=== PATIENT | male | born 1950 | race Caucasian/White ===

== ENCOUNTER → 2018-04-19 | Outpatient (CLI) | payer MEDICARE, OTHER ==
[~2018-04-19] MED LIST: ASPIRIN325 MG PO; DIOVAN160 MG PO; FUROSEMIDE INJ 10 MG/ML 4 ML VIAL ONE; IMURAN50 MG PO; METOPROLOL TART25 MG PO; Z.0.MELOXICAM7.5 MG PO
--- NOTE | 2018-04-19 13:37 | Diagnostic Imaging Report ---
PROCEDURE: CT ABDOMEN AND PELVIS WITHOUT CONTRAST TECHNIQUE: The abdomen and pelvis were scanned utilizing a multidetector helical scanner from the diaphragm to the lesser trochanter. No IV contrast was administered because of stone protocol. Coronal and sagittal multiplanar reformations were obtained. DLP: 792.6 mGy-cm COMPARISON: None. INDICATIONS: HYDRONEPHROSIS FINDINGS: ABSENCE OF INTRAVENOUS CONTRAST DECREASES SENSITIVITY FOR DETECTION OF FOCAL LESIONS AND VASCULAR PATHOLOGY. LOWER THORAX: Coronary artery and aortic annular calcifications. HEPATOBILIARY: Hepatic steatosis. No focal hepatic lesions. No biliary ductal dilatation. SPLEEN: No splenomegaly. PANCREAS: No focal masses or ductal dilatation. ADRENALS: No adrenal nodules. KIDNEYS/URETERS: Punctate calcifications in the right kidney measuring up to 5 mm likely a combination of renal calculi and vascular calcifications. No right hydronephrosis or suspicious renal contour abnormalities. Severe left hydronephrosis with diffuse cortical thinning. No hydroureter. No apparently asymmetric perinephric stranding. Punctate cluster of non-obstructing stones in the interpolar region (series 2 image 38). No suspicious renal contour abnormalities. PELVIC ORGANS/BLADDER: Unremarkable. PERITONEUM / RETROPERITONEUM: No free air or fluid. LYMPH NODES: No lymphadenopathy. VESSELS: Mild scattered atherosclerotic calcifications. No abdominal aortic aneurysm. GI TRACT: No distention or wall thickening. Few sigmoid colonic diverticula without evidence of diverticulitis. BONES AND SOFT TISSUES: Relative atrophy of the right pelvic musculature. Advanced degenerative changes of the lumbar spine. Right L2-L3 pars defect. IMPRESSION: 1. 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 Recommend correlation with same day nuclear medicine exam. 2. Bilateral nephrolithiasis. 3. Colonic diverticulosis. 4. Hepatic steatosis. Dictated by: Raffaele Diehl M.D. on 04/19/2018 at 13:41 Electronically approved by: Raffaele Diehl M.D. on 04/19/2018 at 13:41
--- NOTE | 2018-04-19 22:24 | Diagnostic Imaging Report ---
Renal Scan with Lasix Washout Clinical information: 67 M with hydronephrosis and chronic kidney disease. Technique: Following intravenous administration of 10 mCi of Tc-99m MAG3, dynamic images of the kidneys in the posterior projection were obtained through 40 minutes. Lasix 40 mg was administered intravenously at 11 minutes post injection of the tracer. Report: Left kidney: Perfusion of the left kidney is prompt. 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 Extraction of tracer from the blood pool by the very minimal amount of renal parenchyma is decreased. Clearance of tracer from the renal parenchyma begins promptly but is not complete by the end of the study. The pelvicalyceal system is not dilated. Some pooling of tracer is seen within the pelvicalyceal system. Drainage of tracer from the pelvicalyceal system is adequate prior to administration of Lasix. No significant stasis of tracer is seen within the left ureter. Right kidney: Perfusion to the right kidney is prompt. The right kidney has a distorted and rounded reniform shape and the kidney is reduced in size. Extraction of tracer by the renal parenchyma is mild to moderately decreased. Clearance of tracer from the renal parenchyma begins promptly but is not complete by the end of the study. The pelvicalyceal system is not dilated. Physiologic pooling of tracer within the pelvicalyceal system is seen. Drainage of tracer from the pelvicalyceal system is adequate prior to administration of Lasix. No significant stasis of tracer is seen within the right ureter. Differential renal function: The left kidney contributes 7% of total renal function and the right kidney contributes 93% (normal 43-57%). Impression: 1. 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 The minimal amount of remaining renal parenchyma shows mild to moderate medical renal disease but functions as well as the right renal parenchyma. No hydronephrosis is present and no obstruction is present. 2. The right kidney shows evidence of mild to moderate medical renal disease. No hydronephrosis is present . No physiologically significant obstruction of the renal collecting system is present. Signed by: Dr. Shanell Baker M.D. on 04/19/2018 10:20 PM
== END ==
LOC: CT 12:39
PROVIDERS: ATTEND Urology
DX: N13.30 Unspecified hydronephrosis (principal); N18.9 Chronic kidney disease, unspecified
CPT/HCPCS: 74176; 78708; A9562; J1940

== ENCOUNTER 2019-04-23 05:00 | Observation (INO) | payer MEDICARE, OTHER ==
[2019-04-19 12:54] LABS: BASOPHILS # (AUTO) 0.1 (0.0-0.1); BASOPHILS % 0.7 % (0.0-1.0); EOSINOPHILS # (AUTO) 0.1 (0.0-0.4); EOSINOPHILS % 1.5 % (0.0-6.0); HEMATOCRIT 33.2 % (38.2-49.6); HEMOGLOBIN 10.7 g/dL (14.0-18.0); LYMPHOCYTES # (AUTO) 0.5 (1.0-3.2); LYMPHOCYTES % 6.7 % (18.0-39.1); MEAN CORPUSCULAR HEMOGLOBIN 33.4 pg (28-32); MEAN CORPUSCULAR HGB CONC 32.2 g/dL (31-35); MEAN CORPUSCULAR VOLUME 103.8 fL (81-99); MONOCYTES # (AUTO) 0.5 (0.2-0.8); MONOCYTES % 6.8 % (4.4-11.3); NEUTROPHILS # (AUTO) 5.8 (2.1-6.9); PLATELET COUNT 203 x10e3/uL (140-360); RED CELL DISTRIBUTION WIDTH 15.2 % (11.7-14.4)
--- NOTE | 2019-04-19 13:24 | Diagnostic Imaging Report ---
EXAM: CHEST 2 VIEWS, PA and lateral DATE: 04/19/2019 Time stamp on exam: 12:43 PM INDICATION: Preoperative COMPARISON: None FINDINGS: LINES/TUBES: None LUNGS: No consolidations or edema. PLEURA: No effusions or pneumothorax. HEART AND MEDIASTINUM: Normal size and contour. BONES AND SOFT TISSUES: No acute findings. Orthopedic plate overlies the lower cervical spine. Degenerative changes of the spine are noted. IMPRESSION: No acute thoracic abnormality. Signed by: Dr. Morgan Alexander DO on 04/19/2019 1:21 PM
[~2019-04-23] VITALS: Ht 188 cm; Wt 98.9 kg
[~2019-04-23 05:00] MED LIST changes: +AZATHIOPRINE50 MG PO; -FUROSEMIDE INJ 10 MG/ML 4 ML VIAL ONE; +GABAPENTIN300 MG PO; +MELOXICAM7.5 MG PO; +METOPROLOL SUCC50 MG PO; +PRAMIPEXOLE D0.25 MG PO; +SINEMET 25-1001 EACH PO; +TYLENOL PO
--- OUTSIDE RECORDS SUMMARY | 2019-04-23 05:04 | XMS REPORT | Clinical Summary ---
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 Last Filed Vital Signs Not on file Plan of Treatment Health Maintenance Due Date Last Done Comments COLONOSCOPY SCREENING 1998 SHINGLES VACCINES (#1) 1998 65+ PNEUMOCOCCAL VACCINE 2013 (1 of 2 - PCV13) INFLUENZA VACCINE 05/24/2019 Results Not on fileafter 04/22/2018 Insurance Type Payer Benefit Subscriber ID Effective Phone Address Plan / Dates Group Medicare MEDICARE MEDICARE xxxxxxxxxx 2013- JORDIN, PART A AND Present [place] B Commercial [employer] OF xxxxxxxxx 2017-P RODNEY keene Advance Directives Patient has advance care planning documents on file. For more information, pleas e contact: Jordin Cruz [address] [place] [address]
--- OUTSIDE RECORDS SUMMARY | 2019-04-23 05:05 | XMS REPORT | Summary of Care ---
Author Author [facility] Organization [facility] Address Unknown Phone Unavailable Encounter ALPESH Barr(FIN) [id number] Date(s): 03/22/18 - 03/22/18 [facility] [address] [place] [address]- [phone] Discharge Disposition: Home or Self Care Attending Physician: TuesdayDay MD Referring Physician: TuesdayDay MD Vital Signs No data available for this section Problem List No data available for this section Allergies, Adverse Reactions, Alerts Substance Reaction Severity Status NKDA Active Medications Omnipaque 300 10 mL, Route: INTRATHECAL, Drug Form: SOLN, ONCE, Start date: 03/22/18 10:04:00 CDT, Stop date: 03/22/18 10:04:00 CDT Notes: (Same as:Omnipaque 300).WASTE: F/P - Black; E - Municipal Trash Bin Start Date: 03/22/18 Stop Date: 03/22/18 Status: Completed Results CHEM PANEL Most recent to 1 oldest [Reference Range]: Aldolase [1.2-7.6 10.7 unit/L unit/L] *HI* (03/22/18 4:02 PM) CARDIAC ENZYMES Most recent to 1 oldest [Reference Range]: Total CK [12-191 661 unit/L unit/L] *HI* (03/22/18 4:02 PM) BODY FLUIDS Most recent to 1 oldest [Reference Range]: Glucose CSF [45-80 61 mg/dL mg/dL] (03/22/18 12:00 PM) Protein CSF [15-45 98 mg/dL mg/dL] *HI* (03/22/18 12:00 PM) Tube Num CSF 4 *NA* (03/22/18 12:00 PM) Color CSF Light Red [Colorless] *ABN* (03/22/18 12:00 PM) Clarity CSF [Clear] Slight Blood *ABN* (03/22/18 12:00 PM) Supernat CSF Colorless [Colorless] (03/22/18 12:00 PM) RBC CSF [0-0 /mm3] 25839 /mm3 *HI* (03/22/18 12:00 PM) WBC CSF [0-5 /mm3] 10 /mm3 *HI* (03/22/18 12:00 PM) Segs CSF [0-6 %] 66 % *HI* (03/22/18 12:00 PM) Lymph CSF [40-80 %] 18 % *LOW* (03/22/18 12:00 PM) Eos CSF 3 % *NA* (03/22/18 12:00 PM) Monocyte CSF [15-45 13 % %] *LOW* (03/22/18 12:00 PM) IMMUNOLOGY Most recent to 1 oldest [Reference Range]: IgG Lvl CSF [2.0-4.0 6.0 mg/dL mg/dL] *HI* (03/22/18 12:00 PM) Immunizations No data available for this section Procedures No data available for this section Social History No data available for this section Assessment and Plan No data available for this section
--- OUTSIDE RECORDS SUMMARY | 2019-04-23 05:05 | XMS REPORT | Continuity of Care Document ---
Author Author [facility] Address Unknown Phone Unavailable Care Team Providers Care [employer] Name Role Phone [email or web address] Unavailable Unavailable Problems Problem Status Onset Date Classification Date Reported Comments Source DX: [employer] WFO (SHIRA) Active 03/27/2018 [facility] G61.81 Active 02/07/2018 [facility] CHRONIC INFLAMMATORY DEMYELINATING POLYN Active [facility] Medications Medication Details Route Status Patient Instructions Ordering Provider Order Date Source Omnipaque 300 10 mL, Route: INTRATHECAL, Drug Form: SOLN, ONCE, Start date: 03/22/18 10:04:00 CDT, Stop date: 03/22/18 10:04:00 CDTNotes: (Same as:Omnipaque 300). WASTE: F/P - Black; E - Municipal Trash Bin Inactive 03/22/2018 [facility] Allergies, Adverse Reactions, Alerts No Known Medication Allergies Immunizations No Data Provided for This Section Results Order Name Results Value Reference Range Date Interpretation Comments Source CARDIAC ENZYMES Total CK 661 12 - 191 03/22/2018 [facility] CHEM PANEL Aldolase 10.7 1.2 - 7.6 03/22/2018 [facility] Protein CSF 98 15 - 45 03/22/2018 [facility] Glucose CSF 61 45 - 80 03/22/2018 [facility] Lymph CSF 18 40 - 80 03/22/2018 [facility] Monocyte CSF 13 15 - 45 03/22/2018 [facility] Eos CSF 3 03/22/2018 [facility] Segs CSF 66 0 - 6 03/22/2018 [facility] BODY FLUIDS Color CSF Light Red *ABN* (03/22/18 12:00 PM) Colorless 03/22/2018 [facility] BODY [facility] Supernat CSF Colorless (03/22/18 12:00 PM) Colorless 03/22/2018 [facility] Clarity CSF Slight Blood *ABN* (03/22/18 12:00 PM) Clear 03/22/2018 [facility] BODY [facility] Tube Num CSF 4 03/22/2018 [facility] BODY FLUIDS RBC CSF 74544 0 - 03 03/22/2018 [facility] BODY FLUIDS WBC CSF 10 0 - 53 03/22/2018 [facility] IMMUNOLOGY IgG Lvl CSF 6.0 2.0 - 4.0 03/22/2018 [facility] Pathology Reports No Data Provided for This Section Diagnostic Reports Report Value Date Source Retroperitoneal Complete US BILATERAL RENAL ULTRASOUND: HISTORY: Left hydronephrosis on CT myelogram. FINDINGS: The right kidney is 11.6 cm in length and 7.5 x 4.9 cm in transverse dimension. The left kidney is 13.4 cm in length and 8.4 x 7.2 cm in transverse dimension. There is thinning of the renal parenchyma of both kidneys, slightly more pronounced on the left side. There is normal echogenicity of the parenchyma. There is moderate to marked left hydronephrosis. A 1.2 cm cyst in the right mid kidney is noted. There is no evidence of other cysts, mass, right hydronephrosis, or calculi. Qualitative color-flow appears decreased bilaterally, more so on the left. There is small volume urine in the bladder without other significant bladder abnormalities. The visible aortoiliac segment and inferior vena cava are unremarkable. IMPRESSION: 1. Moderate to marked left hydronephrosis. This could be a developmental UPJ obstruction. Consider CT for further evaluation. 2. Parenchymal thinning suggesting chronic kidney disease. 3. No other significant ultrasound abnormalities of the kidneys. [id number] 03/28/2018 [facility] Spine lumbar myelogram CT Patient Name: NADEEN PINA : 1950; Age: 67 years Male MR: [id number] Study: Spine lumbar myelogram CT 03/22/2018 10:38 AM CDT Clinical Indication: - LUMBAR STENOSIS. Per patient, he is always in pain and has had several back sx. Chronic inflammatory demyelinating polyneuritis. COMPARISON: None TECHNIQUE: Sequential trans-axial images were obtained with a multi-detector helical CT after the myelogram. Coronal and sagittal reconstructions were obtained. CT Radiation Dose DLP 420 mGy-cm FINDINGS: ALIGNMENT AND GENERAL ASSESSMENT: There are 5 nonrib-bearing lumbar vertebral segments. There is loss of the normal lumbar lordosis. No compression fracture. Moderate to severe disc height loss at all lumbar levels. Prior L3 laminectomy. There are no pars interarticularis defects noted. The anterior and posterior paraspinal soft tissues are unremarkable. Mild to moderate facet arthritic change spans L2-L3 through L5-S1. The conus medullaris is unremarkable, ending at the L1 level. There are right renal stones. There is extensive left parapelvic cystic change versus hydronephrosis incompletely evaluated. DISK SPACES: T12-L1: There is no significant bulge or protrusion and no spinal or foraminal stenosis. L1-L2: Broad-based disc osteophyte complex is present with underlying moderate central stenosis. There is moderate bilateral lateral recess stenosis with mass effect on the bilateral descending L2 nerve roots. There is moderate bilateral foraminal stenosis with mass effect on the bilateral exiting L1 nerve roots. L2-L3: Large disc osteophyte complex, status post posterior decompression. The AP spinal canal measures 11 mm. There is moderate bilateral foraminal stenosis. L3-L4: Large disc osteophyte complex, status post posterior decompression. The AP spinal canal measures 11 mm. There is severe right and moderate left foraminal stenosis. L4-L5: Large disc osteophyte complex resulting in severe central and bilateral foraminal stenosis. The AP spinal canal on the left measures 5 mm and 7 mm on the right. There is mass effect on the bilateral descending L5 nerve roots. There is moderate to severe bilateral foraminal stenosis with mass effect on the exiting bilateral L4 nerve roots. L5-S1: Moderate to large disc osteophyte complex. There is severe central stenosis with moderate to severe bilateral lateral recess stenosis. There is mass effect on the bilateral descending S1 nerve roots. Moderate bilateral foraminal stenosis results in mass effect on the bilateral exiting L5 nerve roots. IMPRESSION: 1. L1-L2 moderate central and lateral recess stenosis with moderate bilateral foraminal stenosis. 2. L2-L3 moderate bilateral foraminal stenosis. 3. L3-L4 severe right and moderate left foraminal stenosis. 4. L4-L5 severe central, lateral recess stenosis with moderate to severe bilateral foraminal stenosis. 5. L5-S1 severe central with moderate to severe bilateral lateral recess stenosis. Moderate bilateral foraminal stenosis. 6. Prior L3 laminectomy. 7. Right nephrolithiasis. 8. Left parapelvic cystic change versus hydronephrosis of the left kidney incompletely evaluated. Initial evaluation with an ultrasound would provide more detail. These findings are communicated to [place] in the office of Day Batres MD at 03/23/2018 10:05 AM CDT. SL: [id number] 03/22/2018 [facility] Spine cervical myelogram CT Patient Name: NADEEN PINA : 1950; Age: 67 years y/o Male MR: [id number] Study: Spine cervical myelogram CT 03/22/2018 10:37 AM CDT Clinical Indication: G61.81 Chronic inflammatory demyelinating polyneuritis - G61.81 Chronic inflammatory demyelinating polyneuritis. Neck pain, bilateral extremity weakness. CT Radiation Dose DLP 499 mGy-cm COMPARISON: None TECHNIQUE: Sequential trans-axial images were obtained with a multi-detector helical CT after the myelogram. Coronal and sagittal reconstructions were obtained. FINDINGS: ALIGNMENT AND GENERAL ASSESSMENT: There is normal alignment of the cervical spine without fractures or subluxations. Anterior fusion spans the C6 and C7 vertebral bodies. The surgical hardware is intact. The prevertebral soft tissues, atlanto-dental interspace and craniocervical junction regions are unremarkable. Mild facet arthritic change spans C2-C6. DISC SPACES: C2-3: Small broad-based disc bulging. No central or foraminal stenosis. C3-4: Central disc osteophyte complex. There is mild effacement of the ventral CSF space. There is severe left foraminal stenosis with impingement of the exiting left C4 nerve root. The right foramen is patent. C4-5: There is no significant bulge or protrusion and no spinal or foraminal stenosis. C5-6: There is no significant bulge or protrusion and no spinal. Right foraminal disc osteophyte complex results in mild right foraminal stenosis. C6-7:There is no significant bulge or protrusion and no spinal or foraminal stenosis. C7-T1: There is no significant bulge or protrusion and no spinal or foraminal stenosis. IMPRESSION: 1. C3-C4 severe left foraminal stenosis with impingement of the exiting left C4 nerve root. 2. Status post anterior fusion spanning the C6 and C7 levels. 3. C2-C3 small broad-based disc bulging. SL: [id number] 03/22/2018 [facility] Spine cervical myelogram DX Patient Name: NADEEN PINA : 1950; Age: 67 years y/o Male MR: [id number] Study: Spine lumbar myelogram DX, Spine cervical myelogram DX, Spine lumbar puncture w fluoro DX 03/22/2018 9:40 AM CDT Clinical Indication: - CIDP, PD, lumbar stenosis. Patient stated history of chronic neck, back, upper and lower extremity pain-especially right upper thigh, history drop foot, history cipd, history cervical fusion, history lumbar procedure to remove excess bone growth around foramina. COMPARISON: None. EXAM: Lumbar Puncture, flouroscopic guidance CONSENT: The patient denied any drug allergies. The patient denied intake of any blood thinners, including Plavix, aspirin and warfarin. The risks and benefits of the procedure, the risk of doing nothing, as well as alternative therapies were explained to the patient. The patient was then allowed to ask questions. The patient stated understanding and agreed to proceed. It is my judgment the patient does understand the treatment plan. FLUOROSCOPY TIME: 58 seconds TOTAL DLP: 57 mGy, 697.5 uGym2 TECHNIQUE AND FINDINGS: Time out procedure was performed. The lower back was prepped and draped in sterile fashion with the patient in prone position. Under fluoroscopic guidance a 22 gauge Quincke tip needle was advanced into the thecal sac at the L5-S1 interspace, and 10 mL of clear spinal fluid was withdrawn without complication. COMPLICATION: None. Cervical myelogram: Multilevel disc abnormalities are noted. Lumbar myelogram: There is multilevel spinal stenosis. IMPRESSION: 1. Fluoroscopically guided lumbar puncture. 2. Multilevel disc abnormalities of the cervical spine. 3. Multilevel spinal stenosis of the lumbar spine. SL: [id number] 03/22/2018 [facility] Spine lumbar puncture w fluoro DX Patient Name: NADEEN PINA : 1950; Age: 67 years y/o Male MR: [id number] Study: Spine lumbar myelogram DX, Spine cervical myelogram DX, Spine lumbar puncture w fluoro DX 03/22/2018 9:40 AM CDT Clinical Indication: - CIDP, PD, lumbar stenosis. Patient stated history of chronic neck, back, upper and lower extremity pain-especially right upper thigh, history drop foot, history cipd, history cervical fusion, history lumbar procedure to remove excess bone growth around foramina. COMPARISON: None. EXAM: Lumbar Puncture, flouroscopic guidance CONSENT: The patient denied any drug allergies. The patient denied intake of any blood thinners, including Plavix, aspirin and warfarin. The risks and benefits of the procedure, the risk of doing nothing, as well as alternative therapies were explained to the patient. The patient was then allowed to ask questions. The patient stated understanding and agreed to proceed. It is my judgment the patient does understand the treatment plan. FLUOROSCOPY TIME: 58 seconds TOTAL DLP: 57 mGy, 697.5 uGym2 TECHNIQUE AND FINDINGS: Time out procedure was performed. The lower back was prepped and draped in sterile fashion with the patient in prone position. Under fluoroscopic guidance a 22 gauge Quincke tip needle was advanced into the thecal sac at the L5-S1 interspace, and 10 mL of clear spinal fluid was withdrawn without complication. COMPLICATION: None. Cervical myelogram: Multilevel disc abnormalities are noted. Lumbar myelogram: There is multilevel spinal stenosis. IMPRESSION: 1. Fluoroscopically guided lumbar puncture. 2. Multilevel disc abnormalities of the cervical spine. 3. Multilevel spinal stenosis of the lumbar spine. SL: [id number] 03/22/2018 [facility] Spine lumbar myelogram DX Patient Name: NADEEN PINA : 1950; Age: 67 years y/o Male MR: [id number] Study: Spine lumbar myelogram DX, Spine cervical myelogram DX, Spine lumbar puncture w fluoro DX 03/22/2018 9:40 AM CDT Clinical Indication: - CIDP, PD, lumbar stenosis. Patient stated history of chronic neck, back, upper and lower extremity pain-especially right upper thigh, history drop foot, history cipd, history cervical fusion, history lumbar procedure to remove excess bone growth around foramina. COMPARISON: None. EXAM: Lumbar Puncture, flouroscopic guidance CONSENT: The patient denied any drug allergies. The patient denied intake of any blood thinners, including Plavix, aspirin and warfarin. The risks and benefits of the procedure, the risk of doing nothing, as well as alternative therapies were explained to the patient. The patient was then allowed to ask questions. The patient stated understanding and agreed to proceed. It is my judgment the patient does understand the treatment plan. FLUOROSCOPY TIME: 58 seconds TOTAL DLP: 57 mGy, 697.5 uGym2 TECHNIQUE AND FINDINGS: Time out procedure was performed. The lower back was prepped and draped in sterile fashion with the patient in prone position. Under fluoroscopic guidance a 22 gauge Quincke tip needle was advanced into the thecal sac at the L5-S1 interspace, and 10 mL of clear spinal fluid was withdrawn without complication. COMPLICATION: None. Cervical myelogram: Multilevel disc abnormalities are noted. Lumbar myelogram: There is multilevel spinal stenosis. IMPRESSION: 1. Fluoroscopically guided lumbar puncture. 2. Multilevel disc abnormalities of the cervical spine. 3. Multilevel spinal stenosis of the lumbar spine. SL: [id number] 03/22/2018 [facility] Consultation Notes No Data Provided for This Section Discharge Summaries No Data Provided for This Section History and Physicals No Data Provided for This Section Vital Signs No Data Provided for This Section Encounters Location Location Details Encounter Type Encounter Number Reason For Visit Attending Provider ADM Date DC [id number] Day Tuesday03/22/2018 03/23/2018 [facility] [id number] Day Tuesday03/28/2018 03/29/2018 [facility] Procedures No Data Provided for This Section Assessment and Plan No Data Provided for This Section Plan of Care No Data Provided for This Section Social History Social History Date Source No data available for this section 03/29/2018 [facility] Family History No Data Provided for This Section Advance Directives No Data Provided for This Section Functional Status No Data Provided for This Section
--- OUTSIDE RECORDS SUMMARY | 2019-04-23 05:05 | XMS REPORT ---
[facility] Address Unknown Phone Unavailable Care Team Providers Care Hand Potter Name Role Phone LANG SALAZAR Unavailable Unavailable HAMPEL, KOSTA Unavailable Unavailable Payers Payer Name Policy Type Policy Number Effective Date Expiration Date Problems This patient has no known problems. Allergies, Adverse Reactions, Alerts Allergy Name Allergy Type Status Severity Reaction(s) Onset Date Inactive Date Treating Clinician Comments No Known Allergies DA Active U 2016-09-08 00:00:00 Medications This patient has no known medications. Results Test Description Test Time Test Comments Text Results Atomic Results Result Comments CHEST 2 VIEWS 2019-04-19 13:20:00 [place] [address] Patient Name: NADEEN PINA MR #: [id number] : 1950 Age/Sex: 68/M Req #: [id number] Adm Physician: Ordered by: LANG SALAZAR MD Report #: [id number] Location: OR Room/Bed: Procedure: [id number] DX/CHEST 2 VIEWS Exam Date: 04/19/19 Exam Time: 1220 REPORT STATUS: Signed EXAM: CHEST 2 VIEWS, PA and lateral DATE: 04/19/2019 Time s tamp on exam: 12:43 PM INDICATION: Preoperative COMPARISON: None FINDINGS: LINES/TUBES: None LUNGS: No consolidations or edema. PLEURA: No effusions or pneumothorax. HEART AND MEDIASTINUM: Normal size and contour. BONES AND SOFT TISSUES: No acute findings. Orthopedic plate overlies the lower cervical spine. Degenerative changes of the spine are noted. IMPRESSION: No acute thoracic abnormality. Signed by: Dr. Negin Alexander DO on 04/19/2019 1:21 PM Dictated By: NEGIN ALEXANDER DO 1321 Transcribed By: JUSTIN on 04/19/19 1321 COPY TO: LANG SALAZAR MD RENAL SCAN W/LASARLEY 2018-04-19 22:08:00 [place] [address] Patient Name: NADEEN PINA MR #: [id number] : 1950 Age/Sex: 67/M Req #: [id number] Adm Physician: Ordered by: KOSTA YODER MD Report #: [id number] Location: CT Room/Bed: Procedure: [id number] NM/RENAL SCAN W/ABEBE Exam Date: 04/19/18 Exam Time: 1500 REPORT STATUS: Signed Renal Scan with Lasix Washout Clinical information: 67 M with hydronephrosis and chronic kidney disease. Technique: Following intravenous administration of 10 mCi of Tc-99m MAG3, dynamic images of the kidneys in the posterior projection were obtained through 40 minutes. Lasix 40 mg was administered intravenously at 11 minutes post injection of the tracer. Report: Left kidney: Perfusion of the left kidney is prompt. 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 Extraction of tracer from the blood pool by the very minimal amount of renal parenchyma is decreased. Clearance of tracer from the renal parenchyma begins promptly but is not complete by the end of the study. The pelvicalyceal system is not dilated. Some pooling of tracer is seen within the pelvicalyceal system. Drainage of tracer from the pelvicalyceal system is adequate prior to administration of Lasix. No significant stasis of tracer is seen within the left ureter. Right kidney: Perfusion to the right kidney is prompt. The right kidney has a distorted and rounded reniform shape and the kidney is reduced in size. Extraction of tracer by the renal parenchyma is mild to moderately decreased. Clearance of tracer from the renal parenchyma begins promptly but is not complete by the end of the study. The pelvicalyceal system is not dilated. Physiologic pooling of tracer within the pelvicalyceal system is seen. Drainage of tracer from the pelvicalyceal system is adequate prior to administration of Lasix. No significant stasis of tracer is seen within the right ureter. Differential renal function: The left kidney contributes 7% of total renal function and the right kidney contributes 93% (normal 43-57%). Impression: 1. 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 The minimal amount of remaining renal parenchyma shows mild to moderate medical renal disease but fu nctions as well as the right renal parenchyma. No hydronephrosis is present and no obstruction is present. 2. The right kidney shows evidence of mild to moderate medical renal disease. No hydronephrosis is present . No physiologically significant obstruction of the renal collecting system is present. Signed by: Dr. Reina Baker M.D. on 04/19/2018 10:20 PM Dictated By: REINA BAKER MD 19 Transcribed By: JUSTIN on 04/19/182219 COPY TO: KOSTA YODER MD CT ABDOMEN/PELVIS WO 2018-04-19 13:41:00 [place] [address] Patient Name: NADEEN PINA MR #: [id number] : 1950 Age/[facility]: 67[id number] Req #: [id number] Adm Physician: Ordered by: KOSTA YODER MD Report #: [id number] Location: CT Room/Bed: Procedure: [id number] CT/CT ABDOMEN/PELVIS WO Exam Date: 04/19/18 Exam Time: 1315 REPORT STATUS: Signed PROCEDURE: CT ABDOMEN AND PELVIS WITHOUT CONTRAST TECHNIQUE: The abdomen and pelvis were scanned utilizing a multidetector helical scanner from the diaphragm to the lesser trochanter. No IV contrast was administered because of stone protocol. Coronal and sagittal multiplanar reformations were obtained. DLP: 792.6 mGy-cm COMPARISON: None. INDICATIONS: HYDRONEPHROSIS FINDINGS: ABSENCE OF INTRAVENOUS CONTRAST DECREASES SENSITIVITY FOR DETECTION OF FOCAL LESIONS AND VASCULAR PATHOLOGY. LOWER THORAX: Coronary artery and aortic annular calcifications. HEPATOBILIARY: Hepatic steatosis. No focal hepatic lesions. No biliary ductal dilatation. SPLEEN: No splenomegaly. PANCREAS: No focal masses or ductal dilatation. ADRENALS: No adrenal nodules. KIDNEYS/URETERS: Pu nctate calcifications in the right kidney measuring up to 5 mm likely a combination of renal calculi and vascular calcifications. No right hydronephrosis or suspicious renal contour abnormalities. Severe left hydronephrosis with diffuse cortical thinning. No hydroureter. No apparently asymmetric perinephric stranding. Punctate cluster of non-obstructing stones in the interpolar region (series 2 image 38). No suspicious renal contour abnormalities. PELVIC ORGANS/BLADDER: Unremarkable. PERITONEUM / RETROPERITONEUM: No free air or fluid. LYMPH NODES: No lymphadenopathy. VESSELS: Mild scattered atherosclerotic calcifications. No abdominal aortic aneurysm. GI TRACT: No distention or wall thickening. Few sigmoid colonic diverticula without evidence of diverticulitis. BONES AND SOFT TISSUES: Relative atrophy of the right pelvic musculature. Advanced degenerative changes of the lumbar spine. Right L2-L3 pars defect. IMPRESSION: 1. 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 Recommend correlation with same day nuclear medicine exam. 2. Bilateral nephrolithiasis. 3. Colonic diverticulosis. 4. Hepatic steatosis. Dictated by: Raffaele Hernandez M.D. on 04/19/2018 at 13:41 Electronically approved by: Raffaele Hernandez M.D. on 04/19/2018 at 13:41 Dictated By: RAFFAELE HERNANDEZ MD 1341 Transcribed By: ARTUR on 04/19/18 1341 COPY TO: KOSTA YODER MD
--- OUTSIDE RECORDS SUMMARY | 2019-04-23 05:05 | XMS REPORT | Summary of Care ---
Author Author [facility] Organization [facility] Address Unknown Phone Unavailable Encounter HQ Encntr_alias(FIN) [id number] Date(s): 03/28/18 - 03/28/18 [facility] [address] [place] [address]- Discharge Disposition: Home or Self Care Attending Physician: Day Batres MD Referring Physician: Day Batres MD Vital Signs No data available for this section Problem List No data available for this section Allergies, Adverse Reactions, Alerts Substance Reaction Severity Status NKDA Active Medications No data available for this section Results No data available for this section Immunizations No data available for this section Procedures No data available for this section Social History No data available for this section Assessment and Plan No data available for this section
[2019-04-23] MEDS ORDERED: CELECOXIB 200 MG CAP ONE (05:36)
[2019-04-23] MEDS ORDERED: CEFAZOLIN SOD 1 GM/NS 50ML 100 ML IV ONE (05:37)
[2019-04-23] MEDS ORDERED: DEXAMETHASONE SOD PHOS 10 MG/1 ML VIAL ONE (05:37)
[2019-04-23] MEDS ORDERED: GABAPENTIN 300 MG CAP ONE (05:37)
[2019-04-23] MEDS ORDERED: TRANEXAMIC ACID 1,000 MG/10 ML ML ONE (06:05)
[2019-04-23] MEDS ORDERED: SODIUM CHLORIDE 0.9% 500ML 500 ML ONE (06:05)
[2019-04-23] MEDS ORDERED: VANCOMYCIN HCL 1,000 MG ONE (06:05)
[2019-04-23] MEDS ORDERED: BACITRACIN 50,000 UNIT VIAL ONE (06:06)
[2019-04-23] MEDS ORDERED: PRAMIPEXOLE DI0.5 MG PO (06:35)
[2019-04-23] MEDS ORDERED: ROPIVACAINE 246.25 MG, EPINEPHRINE HCL 1:1000 1ML 0.5 MG, CLONIDINE HCL 0.08 MG, KETORO... INJ ONE ×10 (07:30)
[2019-04-23] MEDS ORDERED: DIPHENHYDRAMINE HCL INJ 50 MG/ML VIAL IM/IV PRN (08:15)
[2019-04-23] MEDS ORDERED: ZOLPIDEM TARTRATE 5 MG TAB PO PRN (08:15)
[2019-04-23] MEDS ORDERED: ONDANSETRON HCL INJ 2MG/ML 2ML 2 MG/ML VIAL IV PRN (08:15)
[2019-04-23] MEDS ORDERED: PROMETHAZINE HCL (IM) 25 MG/ML VIAL INJ PRN (08:15)
[2019-04-23] MEDS ORDERED: DOCUSATE SODIUM 100 MG CAP PO PRN (08:15)
[2019-04-23] MEDS ORDERED: HYDROCODONE/APAP 5MG-325MG TAB PO PRN (08:15)
[2019-04-23] MEDS ORDERED: ACETAMINOPHEN 650 MG SUPP PR PRN (08:15)
[2019-04-23] MEDS ORDERED: KETOROLAC TROMETHAMINE 30 MG/ML VIAL IV PRN (08:15)
--- OUTSIDE RECORDS SUMMARY | 2019-04-23 09:13 | XMS REPORT | Continuity of Care Document ---
Author Author [employer] Address Unknown Phone Unavailable Care Team Providers Care Gold Plater Name Role Phone Relatient Unavailable Unavailable Problems Problem Status Onset Date Classification Date Reported Comments Source DX: KISS MIXER WFO (SHIRA) Active 03/27/2018 [facility] G61.81 Active 02/07/2018 [facility] CHRONIC INFLAMMATORY DEMYELINATING POLYN Active [facility] Medications Medication Details Route Status Patient Instructions Ordering Provider Order Date Source Omnipaque 300 10 mL, Route: INTRATHECAL, Drug Form: SOLN, ONCE, Start date: 03/22/18 10:04:00 CDT, Stop date: 03/22/18 10:04:00 CDTNotes: (Same as:Omnipaque 300). WASTE: F/P - Black; E - Municipal Trash Bin Inactive 03/22/2018 [facility] Allergies, Adverse Reactions, Alerts No Known Medication Allergies Immunizations No Data Provided for This Section Results Order Name Results Value Reference Range Date Interpretation Comments Source CARDIAC ENZYMES Total CK 661 12 - 191 03/22/2018 [facility] CHEM PANEL Aldolase 10.7 1.2 - 7.6 03/22/2018 [facility] Protein CSF 98 15 - 45 03/22/2018 [facility] Glucose CSF 61 45 - 80 03/22/2018 [facility] Lymph CSF 18 40 - 80 03/22/2018 [facility] Monocyte CSF 13 15 - 45 03/22/2018 [facility] Eos CSF 3 03/22/2018 [facility] Segs CSF 66 0 - 6 03/22/2018 [facility] BODY FLUIDS Color CSF Light Red *ABN* (03/22/18 12:00 PM) Colorless 03/22/2018 [facility] BODY [facility] Supernat CSF Colorless (03/22/18 12:00 PM) Colorless 03/22/2018 [facility] Clarity CSF Slight Blood *ABN* (03/22/18 12:00 PM) Clear 03/22/2018 [facility] BODY [facility] Tube Num CSF 4 03/22/2018 [facility] BODY FLUIDS RBC CSF 42870 0 - 03 03/22/2018 [facility] BODY FLUIDS WBC CSF 10 0 - 53 03/22/2018 [facility] IMMUNOLOGY IgG Lvl CSF 6.0 2.0 - 4.0 03/22/2018 [facility] Pathology Reports No Data Provided for This [...] other significant ultrasound abnormalities of the kidneys. [id number] 03/28/2018 [facility] Spine lumbar myelogram CT Patient Name: NADEEN PINA : 1950; Age: 67 years Male MR: [id number] Study: Spine lumbar myelogram CT 03/22/2018 10:38 [...] MD at 03/23/2018 10:05 AM CDT. SL: [id number] 03/22/2018 [facility] Spine cervical myelogram CT Patient Name: NADEEN PINA : 1950; Age: 67 years y/o Male MR: [id number] Study: Spine cervical myelogram CT 03/22/2018 10:37 [...] 3. C2-C3 small broad-based disc bulging. SL: [id number] 03/22/2018 [facility] Spine cervical myelogram DX Patient Name: NADEEN PINA : 1950; Age: 67 years y/o Male MR: [id number] Study: Spine lumbar myelogram DX, Spine cervical [...] spinal stenosis of the lumbar spine. SL: [id number] 03/22/2018 [facility] Spine lumbar puncture w fluoro DX Patient Name: NADEEN PINA : 1950; Age: 67 years y/o Male MR: [id number] Study: Spine lumbar myelogram DX, Spine cervical [...] spinal stenosis of the lumbar spine. SL: [id number] 03/22/2018 [facility] Spine lumbar myelogram DX Patient Name: NADEEN PINA : 1950; Age: 67 years y/o Male MR: [id number] Study: Spine lumbar myelogram DX, Spine cervical [...] spinal stenosis of the lumbar spine. SL: [id number] 03/22/2018 [facility] Consultation Notes No Data Provided for This Section Discharge Summaries No Data Provided for This Section History and Physicals No Data Provided for This Section Vital Signs No Data Provided for This Section Encounters Location Location Details Encounter Type Encounter Number Reason For Visit Attending Provider ADM Date DC Date Status Source [facility] Outpatient [id number] Day Tuesday03/22/2018 03/23/2018 [facility] [id number] Ady Tuesday03/28/2018 03/29/2018 [facility] Procedures No Data Provided for This Section Assessment and Plan No Data Provided for This Section Plan of Care No Data Provided for This Section Social History Social History Date Source No data available for this section 03/29/2018 [facility] Family History No Data Provided for This Section Advance Directives No Data Provided for This Section Functional Status No Data Provided for This Section
--- OUTSIDE RECORDS SUMMARY | 2019-04-23 09:13 | XMS REPORT | Clinical Summary ---
Author Author [facility] Address Unknown Phone Unavailable Care Team Providers Care Hand Funnel Coater Name Role Phone Unknown, Phys PCP Unavailable [...] more information, pleas e contact: Jordin Cruz [address] [place] [address]
--- NOTE | 2019-04-23 09:30 | Diagnostic Imaging Report ---
Knee radiograph, 2 views. History: Post-operative knee replacement Findings: Postoperative findings of right knee arthroplasty with prosthetic components in anatomic alignment. No acute fracture. Overlying subcutaneous emphysema and surgical skin rena are present. Small joint effusion. Atherosclerotic vascular calcifications. IMPRESSION: Status post right knee replacement in anatomic position. Signed by: Jovan Warner MD on 04/23/2019 9:26 AM
--- NOTE | 2019-04-23 10:05 | NUR ---
Recvd patient from PACU, AAOx3, rt knee dressing is intact, no bleeding, not in any distress, on foot pump and HAILY Hose, call light in reach,
[2019-04-23 10:18] VITALS: BP 151/73
[2019-04-23] MEDS: ASPIRIN 325 MG TAB PO SCH ×2 (10:20→16:55)
[2019-04-23] MEDS: CELECOXIB 200 MG CAP PO SCH ×2 (10:20→16:54)
[2019-04-23] MEDS: ACETAMINOPHEN 1000 MG/100 ML IV SCH ×2 (11:54→18:06)
--- NOTE | 2019-04-23 11:57 | Operative Report ---
DATE OF PROCEDURE: 04/23/2019 SURGEON: John Sanders MD CORE JAVA SOFTWARE ENGINEER: Joaquín Amador PA-C. PREOPERATIVE DIAGNOSIS: Osteoarthritis, right knee. POSTOPERATIVE DIAGNOSIS: Osteoarthritis, right knee with chronic synovitis. PROCEDURE: Right total knee arthroplasty with subtotal synovectomy. INDICATIONS: The patient is a 68-year-old gentleman, who has advanced osteoarthritis of his right knee. He has failed conservative management and would now like to proceed with a right total knee replacement. The risks and benefits of the procedure have been discussed. The added challenges due to his Parkinson disease have been explained. Realistic expectations have been stressed. He states he understands and wishes to proceed. PROCEDURE IN DETAIL: The patient was brought to the operating room and placed under general anesthetic. He received a regional block, tranexamic acid and prophylactic antibiotics in the holding area. His right lower extremity was prepped and draped in a sterile manner. The extremity was exsanguinated and a proximal tourniquet was inflated to 300 mmHg. A preoperative time-out was performed. An anterior incision with a medial parapatellar arthrotomy was performed. Extensive proliferative synovitis was encountered. The tissue was very edematous. Soft tissue releases were performed to bring the knee up into flexion. Complete loss of articular cartilage down to polished subchondral bone was noted. Electrocautery was used to perform a subtotal synovectomy. The tissue was so edematous that it was a little bit challenging to use the electrocautery knife. The anterior cruciate ligament was chronically deficient. Meniscal remnants and marginal osteophytes were removed. An extramedullary cutting guide was used to resect the proximal tibia. A +2 mm cut was made due to his limited motion. The tibial base plate was sized with a size #7 implant. The central fin punch was impacted and attention was directed towards the distal femur. Throughout the case, a Adamson and Nephew posterior stabilized legion knee system was used. An intramedullary cutting guide was used to resect the distal femur in 6 degrees of valgus and rotation referencing off a combination of landmarks including Whitesides line, the epicondylar axis and the posterior condyles. The femoral component was also a size #8. Anterior and posterior as well as the notch cuts were made. A trial reduction with a 9 mm posterior stabilized tibial insert provided appropriate soft tissue balancing in full extension and 90 degrees of flexion. The patella was resurfaced with a 35 mm x 9 mm patellar button. The thickness was checked before and after and was 26 mm. Patellar tracking was noted to be concentric. The trial implants were removed. A 100 mL premixed pericapsular CARSON injection was injected into the surrounding tissue. The knee was thoroughly irrigated with a shower tip pulsatile lavage as well as a spray mixture of diluted vancomycin and polymyxin spray. The components were cemented into place using a single mix of Palacos cement preloaded with antibiotics. Care was taken to remove extravasated cement. The wound was further irrigated while the cement cured. The arthrotomy was closed with interrupted #1 Ethibond. The knee was put through flexion and extension to ensure a secure closure. The skin was closed with subcuticular Vicryl and rena. A sterile Aquacel bandage and an Kareem wrap were applied. Estimated blood loss was minimal. All needle and sponge counts were correct. The patient tolerated the procedure without any complications. John Sanders MD DR/TANIA /[id number]
[2019-04-23 12:41] VITALS: BP 140/71
[2019-04-23] MEDS ORDERED: ACETAMINOPHEN 1000 MG/100 ML IV ONE (13:31)
[2019-04-23] MEDS ORDERED: LIDOCAINE HCL 2% LOCAL INJ 5 ML SDV VIAL INJ ONE (13:31)
[2019-04-23] MEDS ORDERED: PROPOFOL IV EMULSION 10 MG/ML 20 ML VIAL ONE (13:31)
[2019-04-23] MEDS ORDERED: EPHEDRINE SULFATE INJ 50 MG/10 ML SYR ONE (13:31)
[2019-04-23] MEDS ORDERED: SEVOFLURANE INHAL SOLN 250 ML PEN BTL ONE (13:31)
[2019-04-23] MEDS ORDERED: ROPIVACAINE 0.5% 5 MG/ML 30 ML SDV ONE (15:15)
[2019-04-23] MEDS ORDERED: LIDOCAINE 2% /EPINEPHRINE 20 ML SDV INJ ONE (15:15)
[2019-04-23] MEDS: CEFAZOLIN SOD 1 GM/NS 50ML 50 ML IV SCH ×2 (15:24→22:40)
[2019-04-23] MEDS: SODIUM CHLORIDE 0.9% 1000ML 1,000 ML IV SCH (16:15)
[2019-04-23 16:51] VITALS: BP 105/60
--- NOTE | 2019-04-23 18:11 | NUR ---
PATIENT RESTING IN BED, NOT IN DISTRESS, TOLERATED DINNER
[2019-04-23] MEDS ORDERED: FENTANYL CITRATE/PF 100MCG/2 ML INJ ONE ×2 (18:48→19:02)
[2019-04-23] MEDS ORDERED: MIDAZOLAM HCL 2 MG/2 ML VIAL ONE (19:02)
[2019-04-23 19:40] VITALS: BP 131/64
[2019-04-23 20:00] VITALS: BP 131/64
--- NOTE | 2019-04-23 20:45 | NUR ---
PATIENT DENIES PAIN, WILLIE WRAP DRESSING DRY AND INTACT TO THE RIGHT LEG. CPM APPLIED, TOLERATING AT 60DEGREES. CALL LIGHT WITHIN EASY REACH, INSTRUCTED TO CALL FOR ASSISTANCE NEEDED.
[2019-04-24] VITALS: BP 133/62
--- NOTE | 2019-04-24 01:09 | NUR ---
PATIENT IS SOUNDLY ASLEEP, HE'S EASY TO AROUSE. NO RESPIRATORY DISTRESS OBSERVED, URINAL AND CALL LIGHT WITHIN EASY REACH.
[2019-04-24] MEDS: ACETAMINOPHEN 1000 MG/100 ML IV SCH ×2 (01:27→06:55)
[2019-04-24] MEDS: HYDROCODONE/APAP 7.5MG-325MG 1 EA TAB PO PRN ×2 (03:19→14:19)
--- NOTE | 2019-04-24 03:20 | NUR ---
PATIENT ASSISTED WITH ADLS, HE C/O PAIN TO THE RIGHT LEG WITH PAIN SCORE #6, MEDICATED WITH NORCO 1TAB ORDERED. CALL LIGHT AND URINAL WITHIN EASY REACH, HE'S INSTRUCTED TO CALL FOR ASSISTANCE NEEDED.
[2019-04-24 04:00] VITALS: BP 134/63
[2019-04-24] MEDS: SODIUM CHLORIDE 0.9% 1000ML 1,000 ML IV SCH ×2 (04:04→16:00)
--- NOTE | 2019-04-24 05:16 | Consultation ---
DATE OF CONSULTATION: 04/24/2019 REASON FOR CONSULTATION: Postop medical management. HISTORY OF PRESENT ILLNESS: The patient is a 68-year-old gentleman who is status post right total knee arthroplasty for end-stage osteoarthritis. He is doing well postoperatively and denies any chest pain, fever, chills, nausea, vomiting, headache, shortness of breath, or dizziness on review of systems. PAST MEDICAL HISTORY: Significant for Parkinson's and CIDP. PAST SURGICAL HISTORY: Lumbar in 2018. MEDICATIONS: See DEC. ALLERGIES: NONE. SOCIAL HISTORY: Former smoker, quit about 12 years ago, which is one pack per day. and retired. Nondrinker. FAMILY HISTORY: Noncontributory. PHYSICAL EXAMINATION: VITAL SIGNS: Temperature 96.9, pulse 61, blood pressure 133/62, and sats 97% on room air. GENERAL: No apparent distress. NECK: Supple. No lymphadenopathy. LUNGS: Clear to auscultation bilaterally. CARDIOVASCULAR: Regular rate and rhythm. ABDOMEN: Good bowel sounds. Soft and nontender. EXTREMITIES: No clubbing or cyanosis. NEUROLOGIC: Nonfocal. ASSESSMENT AND PLAN: 1. Anemia. Check a CBC. 2. Right knee pain. Continue with postoperative care and physical therapy. 3. Chronic inflammatory demyelinating polyneuropathy. We will restart his medicines at discharge. 4. Parkinson's. We will restart his medicines at discharge. Please see hospital chart for full details. MD MARIAJOSE Rich/TANIA /[id number]
[2019-04-24 05:35] LABS: HEMATOCRIT 29.3 % (38.2-49.6); HEMOGLOBIN 9.6 g/dL (14.0-18.0)
[2019-04-24] MEDS: CEFAZOLIN SOD 1 GM/NS 50ML 50 ML IV SCH (06:29)
--- NOTE | 2019-04-24 07:06 | NUR ---
pt alert resp even and unlabored at this time no distress noted, pt able to make needs known,no c/o pain when asked,pt on cpm at this time, pt call light in reach.
--- NOTE | 2019-04-24 07:28 | NUR ---
CPM APPLIED AT 0625, TOLERATING AT 65 DEGREES. PATIENT DENIES PAIN, CALL LIGHT AND URINAL WITHIN EASY REACH.
[2019-04-24] MEDS ORDERED: ACETAMINOPHEN 1000 MG/100 ML IV PRN (08:15)
[2019-04-24] MEDS: ASPIRIN 325 MG TAB PO SCH ×2 (08:52→16:00)
[2019-04-24] MEDS: CELECOXIB 200 MG CAP PO SCH ×2 (08:52→16:00)
[2019-04-24 09:01] VITALS: BP 139/70
[2019-04-24 09:03] VITALS: BP 139/70
--- NOTE | 2019-04-24 10:51 | NUR ---
PATIENT DME AND HOME HEALTH COMPANIES PRE-ARRANGED BY DR. SALAZAR'S OFFICE. PATIENT WITH HOME HEALTH AND DME CONTACT INFORMATION. PATIENT AWARE TO CALL CM IF ANY PROBLEMS OCCUR WITHIN 3 DAYS POST- DISCHARGE. HOME HEALTH EXPLAINED IN DEPTH WITH SERVICES PROVIDED. PATIENT VERBALLY UNDERSTOOD AND SIGNED CHOICE LETTER. THE FOLLOWING HOME HEALTH AND DME COMPANY VERIFIED PATIENT IS ON SERVICE WITH THEM: [facility] (P) [phone] (F) [phone] CM SPOKE TO [facility] WITH [facility]. PATIENT TO RECEIVE SERVICES ON 04/25. REQUESTED BY [facility], PATIENT ASKED TO CALL HOME HEALTH FOR CONFIRMATION ON AVAILABILITY FOR TIME TOMORROW. PATIENT STATES HE WILL CALL NOW. [facility] (P) [phone] (F) [phone] HERNAN SPOKE TO PADMA WITH [facility]. MARKO DROPPED EQUIPMENT OFF AT BEDSIDE. PATIENT READY FOR DISCHARGE AFTER LAST PT SESSION.
[2019-04-24 13:38] VITALS: BP 147/71
--- NOTE | 2019-04-24 14:35 | NUR ---
Visit made by the Spiritual Care Department Pastoral Visitor, Maribeth Benitez. PV provided pastoral presence, prayer, hospitality, and supportive listening. Pastoral Visitor informed pt/family of the scope of Retail Support Specialist Services and availability. JAZ BOLANOS Customer Experience Analyst Spiritual Care Department O: [phone] Pager: [phone] ([phone] number calling from)
--- NOTE | 2019-04-24 16:59 | NUR ---
Nutrition Screen Note RD Recommendation for Physician: -Continue current diet as ordered Plan of Care: RD following, monitoring for tolerance and adequacy Nutrition reason for involvement: Nutrition Risk Trigger MST Primary Diagnose(s): status post right total knee arthroplasty for end-stage osteoarthritis PMH: Parkinson's and CIDP Ht: 74in Wt: 218lb BMI: 28.0kg/m2 IBW: 190lb +/- 10% RD Assessment: (04/24) Chart reviewed. Labs and meds reviewed. 68yo M, who is admitted for right total knee arthroplasty. Visited pt in the room. Pt reports good appetite without any nausea or vomiting. Colace is given for constipation. Pt denies any chewing or swallowing difficulty. Weight has been stable. Current diet is adequate and appropriate. Will continue to monitor and follow. Current Diet: regular diet Malnutrition Evaluation (04/24/2019) The patient does not meet criteria for a specified degree of malnutrition at this time. Will re-evaluate at follow-up as appropriate. Diet Education Needs Assessment: Diet education not indicated. Nutrition Care Level: low Signed: Augusta Sloan, MS, RD, LD
--- NOTE | 2019-05-25 06:19 | Discharge Summary ---
CHIEF COMPLAINT: Right knee pain. HISTORY OF PRESENT ILLNESS: This patient is a 68-year-old male, who complains of right knee pain for many years. He states the pain has gotten progressively worse in the last few months. His x-rays are consistent with end-stage osteoarthritis. The findings and options were discussed. He has decided to proceed with a right total knee replacement. The risks and benefits were explained. The patient states he understands and wished to proceed. HOSPITAL COURSE: The patient underwent a right total knee replacement without complications. He was then transferred to the recovery room and the floor in condition. He remained stable through his hospital stay. He progressed nicely with physical therapy, was able to discharge home on postop day one. Principal diagnosis is OA, right knee. Principle procedure was right TKA. DISCHARGE INSTRUCTIONS: The patient was discharged home with health and physical therapy arranged. He was to be weightbearing as tolerated with a rolling walker. He was to resume his home medications as directed. He was to take aspirin once a day for DVT prophylaxis. He was instructed to follow up in our office in 8 to 10 days. Dictated by Joaquín Amador PA-C MD GARY Herring/TANIA /[id number]
== END 2019-04-24 17:24 | disposition home health service (06) ==
LOC: OR 05:00 → PACU V 08:18 → MED/SURG 09:20
PROVIDERS: ADMIT Specialist; ATTEND Specialist
DX: M17.11 Unilateral primary osteoarthritis, right knee (principal); M65.861 Other synovitis and tenosynovitis, right lower leg; G47.33 Obstructive sleep apnea (adult) (pediatric); I10 Essential (primary) hypertension; G20 Parkinson's disease; G61.81 Chronic inflammatory demyelinating polyneuritis; Z87.891 Personal history of nicotine dependence; D64.9 Anemia, unspecified; Z01.810 Encounter for preprocedural cardiovascular examination; Z01.812 Encounter for preprocedural laboratory examination; Z01.811 Encounter for preprocedural respiratory examination
CPT/HCPCS: 27447; 36415 ×2; 71046; 73560; 85014; 85018; 85025; 86850; 86900; 86920; 93005; 96367; 97110; 97116; 97139; 97162; 97530 ×2; C1713; G0378 ×2; J0131 ×2; J0171; J0690 ×2; J1100; J1885; J2001 ×2; J2250; J2704; J2795; J3370; J7030 ×2; J7040; 96365; J3010

== ENCOUNTER 2020-05-14 14:20 | Inpatient (IN) | payer MEDICARE, OTHER ==
[~2020-05-14] VITALS: Ht 188 cm; Wt 98.4 kg
[~2020-05-14 14:20] MED LIST changes: +PRAMIPEXOLE DI0.5 MG PO
[2020-05-14 15:54] VITALS: BP 157/86
[2020-05-14] MEDS ORDERED: HYDROCODONE/APAP 5MG-325MG TAB PO PRN ×2 (16:15)
[2020-05-14 16:50] VITALS: BP 157/86
[2020-05-14 17:07] VITALS: BP 157/86
[2020-05-14 18:03] LABS: BASOPHILS # (AUTO) 0.1 (0.0-0.1); BASOPHILS % 0.8 % (0.0-1.0); EOSINOPHILS # (AUTO) 0.3 (0.0-0.4); EOSINOPHILS % 3.5 % (0.0-6.0); HEMATOCRIT 35.7 % (38.2-49.6); HEMOGLOBIN 11.1 g/dL (14.0-18.0); LYMPHOCYTES # (AUTO) 0.8 (1.0-3.2); LYMPHOCYTES % 8.8 % (18.0-39.1); MEAN CORPUSCULAR HEMOGLOBIN 30.2 pg (28-32); MEAN CORPUSCULAR HGB CONC 31.1 g/dL (31-35); MEAN CORPUSCULAR VOLUME 97.3 fL (81-99); MONOCYTES # (AUTO) 0.6 (0.2-0.8); MONOCYTES % 7.5 % (4.4-11.3); NEUTROPHILS # (AUTO) 6.8 (2.1-6.9); NEUTROPHILS % 78.9 % (38.7-80.0); PLATELET COUNT 239 x10e3/uL (140-360); RED BLOOD COUNT 3.67 x10e6/uL (4.3-5.7); RED CELL DISTRIBUTION WIDTH 14.2 % (11.7-14.4)
[2020-05-14] MEDS: PIPER-TAZ 3.375 GM 50 ML IV SCH ×2 (18:06→23:41)
--- NOTE | 2020-05-14 18:12 | Diagnostic Imaging Report ---
Radiographs of the right foot - 3 views HISTORY: Pain. Osteomyelitis COMPARISON: None available. FINDINGS: Bones: No acute displaced fracture. Osseous erosion with bone fragmentation at the distal first toe with adjacent soft tissue swelling and skin ulceration consistent with osteomyelitis Joints: Scattered degenerative change. Soft tissues: Soft tissue swelling IMPRESSION: Osseous erosion with bone fragmentation at the distal first toe with adjacent soft tissue swelling and skin ulceration consistent with osteomyelitis Signed by: Dr. Sahil Nava M.D. on 05/14/2020 6:09 PM
--- NOTE | 2020-05-14 18:13 | Diagnostic Imaging Report ---
EXAMINATION: CHEST SINGLE (PORTABLE) INDICATION: Osteomyelitis ^DIRECT ADMIT ^[id number] ^1730 COMPARISON: 04/19/2019 FINDINGS: TUBES and LINES: None. LUNGS: Lungs are well inflated. Lungs are clear. There is no evidence of pneumonia or pulmonary edema. PLEURA: No pleural effusion or pneumothorax. HEART AND MEDIASTINUM: The cardiomediastinal silhouette is unremarkable. BONES AND SOFT TISSUES: No acute osseous lesion. Soft tissues are unremarkable. UPPER ABDOMEN: No free air under the diaphragm. IMPRESSION: No acute thoracic abnormality. Signed by: Dr. Sahil Nava M.D. on 05/14/2020 6:09 PM
[2020-05-14 18:22] LABS: ALBUMIN 3.4 g/dL (3.5-5.0); ALBUMIN/GLOBULIN RATIO 0.8 (0.8-2.0); ANION GAP 14.4 mmol/L (8-16); CALCIUM 9.4 mg/dL (8.4-10.2); CREATININE, SERUM 1.28 mg/dL (0.72-1.25); POTASSIUM 4.4 mmol/L (3.5-5.1)
[2020-05-14] MEDS ORDERED: CELEBREX100 MG PO (18:28)
[2020-05-14] MEDS ORDERED: LYRICA100 MG PO (18:28)
--- NOTE | 2020-05-14 18:59 | NUR ---
bedside shift report compleeted to nightclub manager RN.
--- NOTE | 2020-05-14 19:00 | NUR ---
RECEIVED PATIENT IN BEDSIDE SHIFT REPORT. PATIENT RESTING IN BED AT THIS TIME. A&OX4. NO PAIN REPORTED AT THIS TIME. R FOOT DRESSING C/D/I. NO S&S OF DISTRESS NOTED. BED LOCKED IN LOWEST POSITION, SIDE RAILS UPX2, CALL LIGHT IN REACH.
[2020-05-14 20:00] VITALS: BP 158/78
[2020-05-14 20:49] VITALS: BP 158/78
[2020-05-14] MEDS: METOPROLOL SUCCINATE 50 MG TAB XL PO SCH (21:12)
[2020-05-14] MEDS ORDERED: SODIUM CHLORIDE 0.9% 250ML 250 ML ONE (23:02)
[2020-05-14] MEDS: CARBIDOPA/LEVODOPA 25/100 TAB PO SCH (23:41)
[2020-05-15] VITALS (7 sets, daily range): BP systolic 148–179; BP diastolic 85–94
[2020-05-15] MEDS ORDERED: LOSARTAN POTAS100 MG PO (04:32)
[2020-05-15] MEDS: PIPER-TAZ 3.375 GM 50 ML IV SCH ×4 (05:46→23:45)
[2020-05-15] MEDS: CARBIDOPA/LEVODOPA 25/100 TAB PO SCH ×4 (05:46→23:45)
[2020-05-15] MEDS ORDERED: ACETAMINOPHEN 325 MG TAB PO PRN (07:15)
[2020-05-15] MEDS: CELECOXIB 200 MG CAP PO SCH ×2 (10:33→18:17)
[2020-05-15] MEDS: PRAMIPEXOLE DIHYDROCHLORIDE 1 MG TAB PO SCH ×3 (10:35→20:47)
[2020-05-15] MEDS: AZATHIOPRINE 50 MG TAB PO SCH ×2 (10:35→18:18)
[2020-05-15] MEDS: PREGABALIN 50 MG CAP PO SCH ×2 (10:35→18:18)
[2020-05-15] MEDS: LOSARTAN POTASSIUM 100 MG TAB PO SCH ×2 (10:37→18:18)
--- NOTE | 2020-05-15 11:42 | Diagnostic Imaging Report ---
MRI of the right forefoot without contrast. History: Osteomyelitis of the right great toe. Foot pain. Decreased range of motion. Technique: Multiplanar multisequence MRI of the foot without contrast Comparison: Radiographs 05/14/2020 Findings: Skin ulceration with skin thickening and abnormal soft tissue edema centered at the distal first toe. Cortical destruction and abnormal bone marrow edema involving the distal phalanx of the first toe consistent with osteomyelitis. The proximal phalanx of the first toe appears to be uninvolved. Scattered degenerative change about the remaining visualized osseous structures. No acute fracture, dislocation or evidence of avascular necrosis. Diffuse muscle atrophy. No ligamentous or tendon tear. The visualized neurovascular bundles are intact. Extensive soft tissue edema most pronounced at the dorsal foot could be due to cellulitis. Micrometallic artifact at the distal first toe. Impression: Skin ulceration with skin thickening and abnormal soft tissue edema centered at the distal first toe. Cortical destruction and abnormal bone marrow edema involving the distal phalanx of the first toe consistent with osteomyelitis. No well-formed drainable fluid collection/abscess is seen. Signed by: Dr. Sahil Nava M.D. on 05/15/2020 11:38 AM
--- NOTE | 2020-05-15 17:46 | NUR ---
mpression: Skin ulceration with skin thickening and abnormal soft tissue edema centered at the distal first toe. Cortical destruction and abnormal bone marrow edema involving the distal phalanx of the first toe consistent with osteomyelitis. No well-formed drainable fluid collection/abscess is seen. [id number]
--- NOTE | 2020-05-15 17:55 | Consultation ---
DATE OF CONSULTATION: CHIEF COMPLAINT AND HISTORY OF THE CHIEF COMPLAINT: Mr. Moyer is a most pleasant 69-year-old gentleman who has a long history of foot problems. He has had surgery several years ago. He has currently had no fever, but he has noticed redness, swelling and drainage from his right big toe. He was sent for admission from the office. He has a history of Parkinson's, hypertension, and coronary artery disease. He has no known drug allergies. Previous medical history is otherwise noncontributory. REVIEW OF SYSTEMS: Negative. PHYSICAL EXAMINATION: PHYSICAL EVALUATION OF LOWER EXTREMITY: VASCULAR STATUS: The patient has a mildly palpable pedal pulse, both dorsalis pedis or posterior tibial, edema to both lower extremities with the right worse than the left. 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 This tracks to bone. MUSCULOSKELETAL: The patient with osteomyelitis of the right hallux by radiographic and MRI evaluations. There is also a wound that tracks to bone measuring approximately 2 cm in circumference and 2 cm deep. The area had been debrided in the office and he has significant cellulitis with abscessing and osteomyelitis present. IMPRESSION AND PLAN: The recommendation is for amputation of the right hallux. The area is quite cellulitic and his COVID test is not yet available to take him to the OR. He needs IV antibiotics. Consult for Dr. Qureshi of Infectious Disease has been placed. He will need long- term IV antibiotics. Dressings today, Bactroban ointment, dry gauze. Continue IV antibiotics. See Dr. Qureshi and planned for surgery after clearance next week. JOE Hernandez/TANIA /[id number]
--- NOTE | 2020-05-15 19:00 | NUR ---
RECEIVED PATIENT IN BEDSIDE SHIFT REPORT. PATIENT RESTING IN BED AT THIS TIME. NO PAIN REPORTED. NO S&S OF DISTRESS NOTED. L PICC RECENTLY PLACED, AWAITING CXR FOR PLACEMENT. BED LOCKED IN LOWEST POSITION, SIDE RAILS UXP2, CALL LIGHT IN REACH.
--- NOTE | 2020-05-15 20:07 | Diagnostic Imaging Report ---
Examination: Single AP view of the chest. COMPARISON: None. INDICATION: Line placement DISCUSSION: Lines/tubes: Left PICC line with tip overlying the cavoatrial junction Lungs: Low lung volume. Pleura: There is no pleural effusion or pneumothorax. Heart and mediastinum: The heart and the mediastinum are unremarkable. Bones and soft tissues: No acute bony abnormalities. IMPRESSION: 1. Left PICC line with tip overlying the cavoatrial junction Signed by: Dr. Jose Griffiths M.D. on 05/15/2020 8:04 PM
[2020-05-15] MEDS: VANCOMYCIN 1GM/NS 250 ML 250 ML IV SCH (20:46)
[2020-05-15] MEDS: METOPROLOL SUCCINATE 50 MG TAB XL PO SCH (20:47)
--- NOTE | 2020-05-15 21:00 | NUR ---
REMOVED L HAND IV. CATHETER TIP INTACT. PRESSURE DRESSING APPLIED.
[2020-05-15] MEDS: MUPIROCIN 2% OINT 22 GM TUBE TOP SCH (21:12)
[2020-05-16] VITALS (9 sets, daily range): BP systolic 134–180; BP diastolic 68–104
[2020-05-16] MEDS: PIPER-TAZ 3.375 GM 50 ML IV SCH ×5 (05:55→23:38)
--- NOTE | 2020-05-16 06:00 | NUR ---
PATIENT REQUESTED TO TAKE MORNING SINEMET DOSE WITH OTHER MORNING MEDS HE TAKES THEM TOGETHER AT HOME.
[2020-05-16] MEDS: VANCOMYCIN 1GM/NS 250 ML 250 ML IV SCH ×2 (06:45→20:24)
--- NOTE | 2020-05-16 07:00 | NUR ---
RCD PT AT BED PT IS ALERT AND ORIENTED RESTING ON BED IV PATENT BY SALINE FLSH BED LOW AND LOCKED CALL LIGHT IN REACH
[2020-05-16] MEDS: CARBIDOPA/LEVODOPA 25/100 TAB PO SCH ×4 (08:00→23:38)
[2020-05-16] MEDS: PREGABALIN 50 MG CAP PO SCH ×2 (09:00→16:23)
[2020-05-16] MEDS: CELECOXIB 200 MG CAP PO SCH ×2 (09:00→16:21)
[2020-05-16] MEDS: MUPIROCIN 2% OINT 22 GM TUBE TOP SCH ×2 (09:00→16:23)
[2020-05-16] MEDS: AZATHIOPRINE 50 MG TAB PO SCH ×2 (09:00→16:23)
[2020-05-16] MEDS: LOSARTAN POTASSIUM 100 MG TAB PO SCH ×2 (09:00→16:23)
[2020-05-16] MEDS: PRAMIPEXOLE DIHYDROCHLORIDE 1 MG TAB PO SCH ×3 (09:00→20:55)
--- NOTE | 2020-05-16 17:45 | Progress Note ---
DATE: SUBJECTIVE: Mr. Moyer is doing better. There is no new complaint. Discussed with him the findings of osteomyelitis and the use of IV antibiotics for 6-8 weeks. The patient was seen by Podiatry. OBJECTIVE: GENERAL: He is currently alert, oriented, does not seem to be in acute distress. VITAL SIGNS: Stable. Afebrile. HEENT: He is not icteric. NECK: Supple. CHEST: Clear. HEART: S1-S2. ABDOMEN: Soft. ASSESSMENT: 1. Osteomyelitis, agree with amputation of the right hallux. Continue with antibiotic as ordered. His COVID-19 was negative. 2. Chronic kidney disease with creatinine of 1.28. He is currently on Zosyn and vancomycin. We will follow vancomycin trough. We will follow. MD PAM Dalal/TANIA /[id number]
--- NOTE | 2020-05-16 18:41 | NUR ---
PT RESTING ON BED BED SIDE REPORT GIVEN TO ONCOMING NURSE
--- NOTE | 2020-05-16 18:51 | Progress Note ---
DATE: SUBJECTIVE: The patient is seen today with continued open wound and drainage of the right hallux. He does have abscess cellulitis with osteomyelitis of the right hallux. He is awaiting amputation which has been scheduled for Tuesday of next week to allow reduction of the cellulitis and hopefully primary closure with IV antibiotics. The patient is interested in going home with IV antibiotics as soon as possible and returning on an outpatient basis for the amputation and debridement of the osteomyelitis of the right hallux, which is improving but slowly at this point. He has agreed to self quarantine due to COVID risk if he is allowed to go home on home health with IV antibiotics. His daughter is a nurse and has agreed to administer the antibiotics at home. From a podiatric standpoint, this is acceptable to me. If IV antibiotics can be approved and delivered either this weekend or early next week, he can go and continue IV antibiotics at home. Return on Tuesday for his surgical procedure on an outpatient basis as scheduled and he will be released home once again for continued IV antibiotics for 6-8 weeks. The patient should tolerate this well as he does have qualified family members to assist in his care. JOE Hernandez/TANIA /[id number]
--- NOTE | 2020-05-16 20:00 | NUR ---
DRESSING TO RIGHT BIG TOE DONE. ASSISTED TO BED. BED ALARM ON.
[2020-05-16] MEDS: METOPROLOL SUCCINATE 50 MG TAB XL PO SCH (20:55)
[2020-05-17] VITALS (8 sets, daily range): BP systolic 149–183; BP diastolic 79–92
[2020-05-17] MEDS: CARBIDOPA/LEVODOPA 25/100 TAB PO SCH ×3 (05:44→17:58)
[2020-05-17] MEDS: PIPER-TAZ 3.375 GM 50 ML IV SCH ×3 (05:44→17:58)
[2020-05-17 06:03] LABS: BASOPHILS # (AUTO) 0.1 (0.0-0.1); BASOPHILS % 1.2 % (0.0-1.0); EOSINOPHILS # (AUTO) 0.4 (0.0-0.4); EOSINOPHILS % 5.2 % (0.0-6.0); HEMATOCRIT 31.7 % (38.2-49.6); HEMOGLOBIN 9.9 g/dL (14.0-18.0); LYMPHOCYTES # (AUTO) 0.7 (1.0-3.2); LYMPHOCYTES % 10.3 % (18.0-39.1); MEAN CORPUSCULAR HEMOGLOBIN 29.9 pg (28-32); MEAN CORPUSCULAR HGB CONC 31.2 g/dL (31-35); MEAN CORPUSCULAR VOLUME 95.8 fL (81-99); MONOCYTES # (AUTO) 0.6 (0.2-0.8); MONOCYTES % 8.3 % (4.4-11.3); NEUTROPHILS # (AUTO) 5.1 (2.1-6.9); NEUTROPHILS % 74.7 % (38.7-80.0); PLATELET COUNT 206 x10e3/uL (140-360); RED BLOOD COUNT 3.31 x10e6/uL (4.3-5.7); RED CELL DISTRIBUTION WIDTH 13.9 % (11.7-14.4)
[2020-05-17 06:26] LABS: ALBUMIN 2.8 g/dL (3.5-5.0); ALBUMIN/GLOBULIN RATIO 0.8 (0.8-2.0); ALKALINE PHOSPHATASE 76 IU/L (40-150); ANION GAP 10.4 mmol/L (8-16); BLOOD UREA NITROGEN 18 mg/dL (7-26); BUN/CREATININE RATIO 16 (6-25); CARBON DIOXIDE 26 mmol/L (22-29); CHLORIDE 111 mmol/L (98-107); CREATININE, SERUM 1.14 mg/dL (0.72-1.25); EST GLOMERULAR FILTRATION RATE > 60 ML/MIN (60-); GLUCOSE 83 mg/dL (74-118); POTASSIUM 4.4 mmol/L (3.5-5.1); SODIUM 143 mmol/L (136-145)
[2020-05-17 06:28] LABS: ALANINE AMINOTRANSFERASE < 6 IU/L (0-55)
[2020-05-17] MEDS: VANCOMYCIN 1GM/NS 250 ML 250 ML IV SCH ×2 (06:44→17:58)
--- NOTE | 2020-05-17 07:00 | NUR ---
RCD PT AT BED PT IS ALERT AND ORIENTED RESTING ON BED IV PATENT BY SALINE FLSH BED LOW AND LOCKED CALL LIGHT IN REACH
[2020-05-17] MEDS: PRAMIPEXOLE DIHYDROCHLORIDE 1 MG TAB PO SCH ×3 (09:00→21:42)
[2020-05-17] MEDS: MUPIROCIN 2% OINT 22 GM TUBE TOP SCH ×2 (09:00→22:52)
[2020-05-17] MEDS: CELECOXIB 200 MG CAP PO SCH ×2 (09:00→16:48)
[2020-05-17] MEDS: LOSARTAN POTASSIUM 100 MG TAB PO SCH ×2 (09:00→16:49)
[2020-05-17] MEDS: AZATHIOPRINE 50 MG TAB PO SCH ×2 (09:00→16:49)
[2020-05-17] MEDS: PREGABALIN 50 MG CAP PO SCH ×2 (09:00→16:49)
--- NOTE | 2020-05-17 09:11 | NUR ---
TALKED TO THE FRENCH WEAVER REGARDING HOME HEALTH SHE SAID CANNOT DO IN THE WEEKEND
--- NOTE | 2020-05-17 12:35 | NUR ---
Spoke with tamika Nowak/ [facility] [phone]; She stated They could accept MCR w/ supplemental. She also stated if pt went to Infusion [facility] like Dr. Qureshi's office, it would be covered at 100%. She is checking to see if they could cover this. Cannot be auth until Tuesday due to insurance closed.
--- NOTE | 2020-05-17 14:32 | NUR ---
DRESSING CHANGED ON RIGHT GREAT TOE
--- NOTE | 2020-05-17 18:25 | Progress Note ---
DATE: SUBJECTIVE: Mr. Moyer is doing well. There is no new complaint. PHYSICAL EXAMINATION: GENERAL: Currently alert, oriented. VITAL SIGNS: Stable, afebrile. HEENT: He is not icteric. NECK: Supple. CHEST: Clear. HEART: S1 and S2. ABDOMEN: Soft. IMPRESSION: Osteomyelitis of the foot. PLAN: Continue with antibiotic as ordered. He is on Zosyn and vancomycin. Await cultures. May need surgical debridement. We will discuss with Podiatry. We will follow vancomycin level. So far, the trough within normal limits. MD PAM Dalal/TANIA /[id number]
--- NOTE | 2020-05-17 18:45 | NUR ---
PT RESTING ON BED BED SIDE REPORT GIVEN TO ONCOMING NURSE
[2020-05-17] MEDS: HYDRALAZINE HCL 20 MG/ML VIAL IV PRN (21:42)
[2020-05-17] MEDS: METOPROLOL SUCCINATE 50 MG TAB XL PO SCH (21:42)
[2020-05-18] VITALS (8 sets, daily range): BP systolic 128–174; BP diastolic 72–95
[2020-05-18] MEDS: PIPER-TAZ 3.375 GM 50 ML IV SCH ×5 (00:22→23:43)
[2020-05-18] MEDS: CARBIDOPA/LEVODOPA 25/100 TAB PO SCH ×5 (00:22→23:43)
--- NOTE | 2020-05-18 04:41 | Consultation ---
DATE OF CONSULTATION: 05/15/2020 REASON FOR CONSULTATION: Infection of the right foot. HISTORY OF PRESENT ILLNESS: This patient, who is a very pleasant gentleman, 69-year-old, who has been having problem with his foot for more than a week. The patient had big toe ulcer with redness and swelling, now is getting up. The redness is going to his leg. The patient, who denies history of trauma. He does use a walker. He does have neuropathy. The patient comes in to the hospital with redness and swelling of the foot starting from the big toe. The patient is being admitted, started on antibiotic. The patient, who does have history of hypertension and neuropathy. PAST SURGICAL HISTORY: Denies. ALLERGIES: NKA. SOCIAL HISTORY: There is no smoking, drug abuse, or alcohol abuse. FAMILY HISTORY: Unremarkable. LABORATORY DATA: White count 8.56 and hemoglobin 11. His sodium 144, potassium 4.4 with a creatinine of 1.28 and a glucose of 87. PHYSICAL EXAMINATION: GENERAL: He is currently alert and oriented. Does not seem to be in acute distress. VITAL SIGNS: Stable, currently afebrile. VITAL SIGNS: Stable, afebrile. HEENT: He is not icteric. NECK: Supple. CHEST: Clear. HEART: S1 and S2. No murmur. ABDOMEN: Soft. EXTREMITIES: There is redness and swelling in the big toe. There is an ulcer in the dorsal aspect. IMPRESSION: 1. Infection of the foot with cellulitis of the leg, concerned big toe osteomyelitis. An MRI was done, which is consistent with osteomyelitis. Recommend vancomycin and cefepime. 2. Vascular workup. 3. May need surgical debridement. 4. Will need long-term IV antibiotic. 5. We will follow with you. MD PAM Dalal/TANIA /[id number]
[2020-05-18] MEDS: VANCOMYCIN 1GM/NS 250 ML 250 ML IV SCH ×2 (06:31→17:23)
--- NOTE | 2020-05-18 07:00 | NUR ---
RCD PT AT BED PT IS ALERT AND ORIENTED RESTING ON BED IV PATENT BY SALINE FLUSH BED LOW AND LOCKED CALL LIGHT IN REACH
[2020-05-18] MEDS: CELECOXIB 200 MG CAP PO SCH ×2 (09:00→16:52)
[2020-05-18] MEDS: PREGABALIN 50 MG CAP PO SCH ×2 (09:00→16:52)
[2020-05-18] MEDS: MUPIROCIN 2% OINT 22 GM TUBE TOP SCH ×2 (09:00→21:07)
[2020-05-18] MEDS: AZATHIOPRINE 50 MG TAB PO SCH ×2 (09:00→16:52)
[2020-05-18] MEDS: PRAMIPEXOLE DIHYDROCHLORIDE 1 MG TAB PO SCH ×3 (09:00→21:06)
[2020-05-18] MEDS: LOSARTAN POTASSIUM 100 MG TAB PO SCH ×2 (09:00→16:52)
--- NOTE | 2020-05-18 09:03 | NUR ---
She with [facility] stated Dr. Qureshi's office not able to do outpt antibiotics. She stated that [facility] are able to, and insurance will pay 100%. Will discuss plan with patient.
--- NOTE | 2020-05-18 10:01 | NUR ---
Met with patient and discussed home health and home infusion. Discussed the one in network: [address] [place] [address] office [phone] fax: [phone] Patient stated he would like to see in there is one closer to his home. He stated in the past he went to one that is in [place], located next door to his neurologist office [phone] [facility], [address] [place] [address]. He requests CM call the neuro office Tuesday and find out the name of the infusion company next door and try them. There is: [facility] [address] [facility] [address] CM to follow up on Tuesday.
[2020-05-18] MEDS: BISMUTH SUBSALICYLATE 262 MG TAB PO PRN ×4 (10:17→16:30)
--- NOTE | 2020-05-18 12:00 | NUR ---
DRESSING CHANGED ON RIGHT GREAT TOE
--- NOTE | 2020-05-18 13:40 | NUR ---
This patient, who is a very pleasant gentleman, 69-year-old, who has been having problem with his foot for more than a week. The patient had big toe ulcer with redness and swelling, now is getting up. The redness is going to his leg. The patient, who denies history of trauma. He does use a walker. He does have neuropathy. The patient comes in to the hospital with redness and swelling of the foot starting from the big toe. The patient is being admitted, started on antibiotic. The patient, who does have history of hypertension and neuropathy. PAST SURGICAL HISTORY: Denies. ALLERGIES: NKA. SOCIAL HISTORY: There is no smoking, drug abuse, or alcohol abuse. FAMILY HISTORY: Unremarkable. LABORATORY DATA: White count 8.56 and hemoglobin 11. His sodium 144, potassium 4.4 with a creatinine of 1.28 and a glucose of 87. PHYSICAL EXAMINATION: GENERAL: He is currently alert and oriented. Does not seem to be in acute distress. VITAL SIGNS: Stable, currently afebrile. VITAL SIGNS: Stable, afebrile. HEENT: He is not icteric. NECK: Supple. CHEST: Clear. HEART: S1 and S2. No murmur. ABDOMEN: Soft. EXTREMITIES: no change
--- NOTE | 2020-05-18 16:18 | Progress Note ---
DATE: SUBJECTIVE: Mr. Moyer is doing well. There are no new complaints. PHYSICAL EXAMINATION: GENERAL: He is currently alert, oriented. VITAL SIGNS: Stable, currently afebrile. HEENT: He is not icteric. NECK: Supple. CHEST: Clear. HEART: S1, S2. No murmurs. ABDOMEN: Soft. IMPRESSION: Osteomyelitis of the foot, peripheral vascular disease. Continue IV antibiotic as ordered. We will follow vancomycin level. We will follow with you. MD PAM Dalal/MODMerry /[id number]
--- NOTE | 2020-05-18 17:18 | Progress Note ---
DATE: 05/18/[address] Jerry Cantu. SUBJECTIVE: The patient was seen at bedside. Dressing was removed. Ulcer, full thickness to the plantar aspect of the right hallux down to the level of the bone, localized erythema and edema. There is still a large amount of edema right to pass the ankle joint. Negative Homans sign. Pedal pulses not palpable secondary to the edema. Capillary filling time is delayed. Protective threshold is absent. Intrinsic minus type of foot. ASSESSMENT: 1. Full-thickness ulcer down to bone, right hallux. 2. Osteomyelitis right hallux. 3. History of Parkinson disease. PLAN: At this point, he is currently on IV antibiotics, which is responding to the ulcer. He knows he is going to have a debridement. He is scheduled for an amputation on Tuesday. The patient states that he is waiting on his cancellation, who might be able to go before. He was going to consider going home and then returning, but he did want to go home because then he would not be able to self isolate. Continue local wound care. Continue IV antibiotic and scheduled for surgery for amputation of that digit distally on Tuesday. JOE Drew/TANIA /[id number]
--- NOTE | 2020-05-18 18:38 | NUR ---
PT RESTING ON BED BED SIDE REPORT GIVEN TO ONCOMING NURSE
[2020-05-18] MEDS: METOPROLOL SUCCINATE 50 MG TAB XL PO SCH (21:07)
[2020-05-18] MEDS: HYDRALAZINE HCL 20 MG/ML VIAL IV PRN (23:43)
[2020-05-19] VITALS (7 sets, daily range): BP systolic 142–179; BP diastolic 72–100
[2020-05-19] MEDS: PIPER-TAZ 3.375 GM 50 ML IV SCH ×3 (05:30→17:04)
[2020-05-19] MEDS: CARBIDOPA/LEVODOPA 25/100 TAB PO SCH ×3 (05:55→17:04)
[2020-05-19] MEDS: VANCOMYCIN 1GM/NS 250 ML 250 ML IV SCH ×2 (06:34→17:37)
[2020-05-19] MEDS: PREGABALIN 50 MG CAP PO SCH ×2 (08:35→16:15)
[2020-05-19] MEDS: CELECOXIB 200 MG CAP PO SCH ×2 (08:35→16:15)
[2020-05-19] MEDS: PRAMIPEXOLE DIHYDROCHLORIDE 1 MG TAB PO SCH ×3 (08:35→21:00)
[2020-05-19] MEDS: AZATHIOPRINE 50 MG TAB PO SCH ×2 (08:35→16:15)
[2020-05-19] MEDS: LOSARTAN POTASSIUM 100 MG TAB PO SCH ×2 (08:35→16:15)
--- NOTE | 2020-05-19 12:43 | Progress Note ---
DATE: SUBJECTIVE: Mr. Moyer is feeling slightly better. REVIEW OF SYSTEMS: HEENT: Negative. PULMONARY: Negative. CARDIAC: Negative. NECK: Slightly better. PHYSICAL EXAMINATION: GENERAL: Currently alert and oriented. VITAL SIGNS: Stable, afebrile. HEENT: She is not icteric. NECK: Supple. CHEST: Clear. HEART: S1,S2. ABDOMEN: Soft. IMPRESSION: Cellulitis of the leg, currently on clindamycin and Diflucan. Continue with local care. Continue with Kareem wrap. Agree with stasis dermatitis with cellulitis as mentioned above. MD PAM Dalal/MODL /[id number]
--- NOTE | 2020-05-19 14:24 | NUR ---
[id number] late entry 05/18/2020
--- NOTE | 2020-05-19 16:49 | NUR ---
Nutrition Screen Note RD Recommendation for Physician: -Recommend modifying diet to cardiac diet Plan of Care: RD following, monitoring for tolerance and adequacy Nutrition reason for involvement: length of stay Primary Diagnose(s): osteomyelitis of right hallux, abscess/cellulitis PMH: Parkinson's, hypertension, and coronary artery disease Ht: 74 in Wt:217 lb BMI:27.9 kg/m2 IBW:[address] Assessment: (05/19/20) Chart reviewed. Labs and meds reviewed. Pt is a 69 year old male admitted with osteomyelitis of right hallux and abscess/cellulitis. It is recorded that pt has been consuming 75-100% of meals during admission. Per weight history in chart, pt weighed 218 lbs from a previous admission in April 2019. Therefore, no weight loss is evident. Will continue to monitor. Current Diet: regular diet Malnutrition Evaluation (05/19/20) The patient does not meet criteria for a specified degree of malnutrition at this time. Will re-evaluate at follow-up as appropriate. Diet Education Needs Assessment: RD is available for diet education as needed Nutrition Care Level: low Signed: Candelaria Kingsley, RD, LD
--- NOTE | 2020-05-19 18:14 | Progress Note ---
DATE: SUBJECTIVE: Mr. Moyer is doing well. There is no new complaint. PHYSICAL EXAMINATION: GENERAL: He is currently alert, oriented. VITAL SIGNS: Stable, afebrile. HEENT: He is not icteric. NECK: Supple. CHEST: Clear. HEART: S1, S2. No S3, S4, or murmur. ABDOMEN: Soft. Bowel sounds present. No tenderness. EXTREMITIES: No edema. IMPRESSION: Osteomyelitis, right hallux; Parkinson disease. Continue IV antibiotic. Debridement as ordered. Amputation on Tuesday. MD PAM Dalal/MODL /[id number]
[2020-05-19] MEDS: MUPIROCIN 2% OINT 22 GM TUBE TOP SCH (18:35)
--- NOTE | 2020-05-19 18:35 | NUR ---
Right great toe was cleaned with NS and Bactroban applied. Dr. Cantu is at the bedside and plan for now is surgery on Tuesday.
--- NOTE | 2020-05-19 18:55 | Progress Note ---
DATE: SUBJECTIVE: The patient is seen today, slowly improving from IV antibiotics with an osteomyelitis on the right hallux. He still has significant edema in the right foot radiating up to the knee on the right side. The patient's wound is opened with a dry purplish base extending just past the proximal interphalangeal joint. 2+ edema still noted. The patient states he is diuresing well and urinating frequently. He needs to continue IV antibiotics, local wound care, and dressing changes as well as diuresis prior to the surgery to reduce as much edema as possible. The patient understands and is ready for surgery on Tuesday should the swelling be reduced adequately by then. We will follow with him tomorrow and continue current care. JOE Hernandez/TANIA /[id number]
[2020-05-19] MEDS: METOPROLOL SUCCINATE 50 MG TAB XL PO SCH (21:00)
[2020-05-20] VITALS (7 sets, daily range): BP systolic 139–191; BP diastolic 77–97
[2020-05-20] MEDS: MUPIROCIN 2% OINT 22 GM TUBE TOP SCH ×3 (00:59→21:00)
[2020-05-20] MEDS: CARBIDOPA/LEVODOPA 25/100 TAB PO SCH ×4 (01:00→17:24)
[2020-05-20] MEDS: PIPER-TAZ 3.375 GM 50 ML IV SCH ×4 (01:00→17:24)
[2020-05-20] MEDS: HYDRALAZINE HCL 20 MG/ML VIAL IV PRN (03:37)
--- NOTE | 2020-05-20 03:51 | Progress Note ---
DATE: 05/18/2020 This is a late entry for May 18. The patient was seen and examined. Chart reviewed. REVIEW OF SYSTEMS: HEENT: Negative. PULMONARY: Negative. CARDIAC: Negative. PHYSICAL EXAMINATION: GENERAL: He is currently alert and oriented. VITAL SIGNS: Stable, currently afebrile. HEENT: He is not icteric. NECK: Supple. CHEST: Clear. HEART: S1, S2. ABDOMEN: Soft. The note in chart reflect the information. The patient does have osteomyelitis. The patient is currently on Zosyn and vancomycin. PLAN: Continue same until we get debridement and deep wound cultures. He would need long-term antibiotic. MD PAM Dalal/TANIA /[id number]
--- NOTE | 2020-05-20 05:42 | Progress Note ---
DATE: SUBJECTIVE: The patient did well overnight. No new complaints, but still has elevated blood pressures. OBJECTIVE: VITAL SIGNS: Temperature 98.0, pulse 72, blood pressure 191/97, sats 100%. GENERAL: No apparent distress, lying in bed. CARDIOVASCULAR: Regular rate and rhythm. LUNGS: Clear to auscultation bilaterally. ABDOMEN: Good bowel sounds. Soft, nontender. EXTREMITIES: No clubbing or cyanosis. Right toe is bandaged. ASSESSMENT AND PLAN: 1. Osteomyelitis of the right hallux. Continue with current care. Continue the antibiotics since there are multiple organisms present. The patient is scheduled for amputation tomorrow. 2. Anemia. Continue to monitor and check CBC. 3. Parkinson's. Continue his home medication. 4. Hypertension. We will go ahead and add Norvasc 5 mg p.o. daily as well as continuation of his other medications. Please see hospital chart for full details. MD MARIAJOSE Rich/TANIA /[id number]
[2020-05-20 06:43] LABS: BASOPHILS # (AUTO) 0.1 (0.0-0.1); EOSINOPHILS # (AUTO) 0.4 (0.0-0.4); EOSINOPHILS % 4.9 % (0.0-6.0); HEMATOCRIT 32.5 % (38.2-49.6); HEMOGLOBIN 10.1 g/dL (14.0-18.0); LYMPHOCYTES # (AUTO) 0.8 (1.0-3.2); LYMPHOCYTES % 10.4 % (18.0-39.1); MEAN CORPUSCULAR HEMOGLOBIN 29.9 pg (28-32); MEAN CORPUSCULAR HGB CONC 31.1 g/dL (31-35); MEAN CORPUSCULAR VOLUME 96.2 fL (81-99); MONOCYTES # (AUTO) 0.6 (0.2-0.8); MONOCYTES % 8.5 % (4.4-11.3); NEUTROPHILS # (AUTO) 5.5 (2.1-6.9); NEUTROPHILS % 74.5 % (38.7-80.0); PLATELET COUNT 195 x10e3/uL (140-360); RED BLOOD COUNT 3.38 x10e6/uL (4.3-5.7); RED CELL DISTRIBUTION WIDTH 14.1 % (11.7-14.4)
[2020-05-20] MEDS: VANCOMYCIN 1GM/NS 250 ML 250 ML IV SCH ×2 (06:45→21:00)
--- NOTE | 2020-05-20 06:55 | NUR ---
Vancomycin trough still pending, morning nurse aware.
[2020-05-20 07:07] LABS: ALBUMIN/GLOBULIN RATIO 0.8 (0.8-2.0); ANION GAP 12.5 mmol/L (8-16); CALCIUM 9.2 mg/dL (8.4-10.2); CREATININE, SERUM 1.22 mg/dL (0.72-1.25); POTASSIUM 4.5 mmol/L (3.5-5.1)
[2020-05-20] MEDS: CELECOXIB 200 MG CAP PO SCH ×2 (08:55→17:23)
[2020-05-20] MEDS: PREGABALIN 50 MG CAP PO SCH ×2 (08:59→17:23)
[2020-05-20] MEDS: LOSARTAN POTASSIUM 100 MG TAB PO SCH ×2 (08:59→17:23)
[2020-05-20] MEDS: PRAMIPEXOLE DIHYDROCHLORIDE 1 MG TAB PO SCH ×3 (08:59→21:00)
[2020-05-20] MEDS: AZATHIOPRINE 50 MG TAB PO SCH ×2 (08:59→17:23)
[2020-05-20] MEDS: AMLODIPINE BESYLATE 5 MG TAB PO SCH (09:00)
--- NOTE | 2020-05-20 11:38 | NUR ---
CM called pt's neurologist's office and found out infusion suite next door is [facility]. HERNAN spoke with Elvira at [facility], who states they do not administer IV antibiotics, only treat neurological conditions. HERNAN spoke to pt at bedside and informed him. He states he will go to [place]. CM offered to have infusion [employer] run his insurance for cost on abx for home infusions. Pt declined. Signed choice letter for [facility]. Signed copy placed in front of chart. Copy to pt. Pending ID MD's order for outpatient abx arrangement.
--- NOTE | 2020-05-20 16:02 | NUR ---
Paged Dr. Qureshi due to elevated vancomycin trough 18.3. Awaiting call back
--- NOTE | 2020-05-20 20:20 | Progress Note ---
DATE: SUBJECTIVE: Mr. Moyer is well. No new complaint. PHYSICAL EXAMINATION: GENERAL: He is alert and oriented. VITAL SIGNS: Stable, afebrile. HEENT: He is not icteric. NECK: Supple. CHEST: Clear. HEART: S1, S2. No murmurs. ABDOMEN: Soft. IMPRESSION: The patient was seen by Dr. Carnes. The patient has osteomyelitis. Continue IV antibiotic. Surgery on Tuesday per Podiatry has ordered. We will continue to follow with labs. Continue to follow levels. We will follow the cultures from intraoperative surgery. MD PAM Dalal/TANIA /[id number]
[2020-05-20] MEDS: METOPROLOL SUCCINATE 50 MG TAB XL PO SCH (21:00)
[2020-05-21] VITALS (8 sets, daily range): BP systolic 135–185; BP diastolic 77–96
[2020-05-21] MEDS: PIPER-TAZ 3.375 GM 50 ML IV SCH ×5 (00:10→23:56)
[2020-05-21] MEDS: CARBIDOPA/LEVODOPA 25/100 TAB PO SCH ×5 (00:10→23:56)
--- NOTE | 2020-05-21 01:22 | Progress Note ---
DATE: SUBJECTIVE: The patient is seen tonight in preop for surgical procedures on his right foot. He has osteomyelitis of the right hallux with ascending cellulitis of the right lower extremity. His right leg is still quite swollen and red. However, the edema immediately surrounding the large ulceration and exposed bone on the right hallux has improved considerably. His previous medical history is reviewed and he is anxious to pursue surgical procedure and IV antibiotics on an outpatient basis. All questions asked were answered. The patient has agreed to accept all risks inherent to the procedure. He is scheduled for surgery in the morning and will be available for discharge for home health, IV antibiotics afterwards. JOE Hernandez/TANIA /[id number]
[2020-05-21] MEDS ORDERED: BACITRACIN 50,000 UNIT VIAL ONE (06:58)
[2020-05-21] MEDS ORDERED: BUPIVACAINE HCL 0.5% INJ 30 ML VIAL INJ ONE (06:58)
--- NOTE | 2020-05-21 07:00 | NUR ---
The pt. is currently out of the room to surgery.
[2020-05-21] MEDS ORDERED: MUPIROCIN 2% OINT 22 GM TUBE ONE (08:16)
--- NOTE | 2020-05-21 08:38 | Progress Note ---
DATE: SUBJECTIVE: The patient is doing very well. He is ready for surgery today. OBJECTIVE: VITAL SIGNS: His vital signs are stable. He is afebrile. GENERAL: No apparent distress. CARDIOVASCULAR: Regular rate and rhythm. LUNGS: Clear to auscultation bilaterally. ABDOMEN: Good bowel sounds. Soft and nontender. EXTREMITIES: No clubbing or cyanosis. Right big toe is bandaged. NEUROLOGIC: He moves all extremities x4. ASSESSMENT AND PLAN: 1. Osteomyelitis of the right hallux. The patient is scheduled for amputation today. Continue with antibiotics. 2. Parkinson's disease. Continue with his current care medicine. 3. Hypertension. Continue with current care and monitoring. Please see hospital chart for full details. MD MARIAJOSE Rich/TANIA /[id number]
[2020-05-21] MEDS: AMLODIPINE BESYLATE 5 MG TAB PO SCH (09:00)
[2020-05-21] MEDS: MUPIROCIN 2% OINT 22 GM TUBE TOP SCH ×2 (09:00→20:30)
[2020-05-21] MEDS: AZATHIOPRINE 50 MG TAB PO SCH ×2 (09:00→17:30)
[2020-05-21] MEDS: CELECOXIB 200 MG CAP PO SCH ×2 (09:00→17:30)
[2020-05-21] MEDS: PREGABALIN 50 MG CAP PO SCH ×2 (09:00→17:30)
[2020-05-21] MEDS: LOSARTAN POTASSIUM 100 MG TAB PO SCH ×2 (09:00→17:31)
[2020-05-21] MEDS: PRAMIPEXOLE DIHYDROCHLORIDE 1 MG TAB PO SCH ×3 (09:00→20:21)
--- NOTE | 2020-05-21 09:00 | NUR ---
The pt. returned from surgery awake and alert. He denies pain or discomfort at this time and v/s 97.6 55 130/77 99%. There is a dressing to the right great toe which is clean dry and intact. Ice pack and elevation is ordered and in place. He is s/p right great toe I&D and amputation.
--- NOTE | 2020-05-21 09:38 | Operative Report ---
DATE OF PROCEDURE: SURGEON: Jerry Cantu DPM PREOPERATIVE DIAGNOSES: Abscess, cellulitis with osteomyelitis, right hallux. POSTOPERATIVE DIAGNOSES: Abscess, cellulitis with osteomyelitis, right hallux. TITLE OF THE OPERATION: Incision and drainage with amputation, right hallux. ANESTHESIA: General endotracheal. HEMOSTASIS: Right thigh tourniquet. PROCEDURE IN DETAIL: The patient was taken to the operating room in a mildly sedated state and placed on the operating table in supine position. Following induction of general anesthetic, the right lower extremity was elevated to 60 degrees to exsanguinate before inflating the pneumatic thigh tourniquet to 350 mmHg for good hemostasis. The right lower extremity was placed on the operating table prior to performing following procedure. Procedure #1: Amputation of the right hallux circumferentially around the hallux and extending on to the dorsum of the foot. The incision was drawn and deepened to bone. There was osteomyelitis of the distal phalanx and interphalangeal joint. The head of the proximal phalanx was resected utilizing oscillating saw. The area underlying irrigated with copious amounts of bacitracin solution. Skin was remodeled and closed medial to lateral with 3-0 Vicryl and 4-0 nylon. The areas of surgery were blocked with 0.5 Marcaine. Bone cultures were obtained and the hallux amputation was sent to pathology. The release of pneumatic thigh tourniquet showed a normal hyperemic flush to all digits of the right foot and the patient left the operating room with vital signs stable in apparent satisfactory condition, having tolerated both anesthetic and procedure very well. JOE Hernandez/TANIA /[id number]
--- NOTE | 2020-05-21 11:37 | NUR ---
The pt. called for assistance to bathroom and was advised to allow for potty chair and he declined stating that he is going to the bathroom one way or another. I made sure tthe pt. made it to the toilet and asked him to call for assistance. The concern is that he is fresh toe amputation.
--- NOTE | 2020-05-21 13:15 | NUR ---
Spoke to Dr. Qureshi regarding outpatient IV abx. States to wait for culture from surgery. Will give final recommendations on abx tomorrow.
[2020-05-21] MEDS ORDERED: LIDOCAINE HCL 2% LOCAL INJ 5 ML SDV VIAL INJ ONE (14:29)
[2020-05-21] MEDS ORDERED: PROPOFOL IV EMULSION 10 MG/ML 20 ML VIAL ONE (14:29)
[2020-05-21] MEDS ORDERED: ONDANSETRON HCL INJ 2MG/ML 2ML 2 MG/ML VIAL ONE (14:29)
[2020-05-21] MEDS ORDERED: SEVOFLURANE INHAL SOLN 250 ML PEN BTL ONE (14:29)
[2020-05-21] MEDS ORDERED: ETOMIDATE 2 MG/ML 10 ML INJ IV ONE (14:29)
[2020-05-21] MEDS ORDERED: SODIUM CHLORIDE 0.9% 250ML 250 ML ONE (19:59)
--- NOTE | 2020-05-21 20:10 | Progress Note ---
DATE: SUBJECTIVE: Mr. Moyer is doing well. There are no new complaints. His cultures as mentioned above from intraoperative is still pending. PHYSICAL EXAMINATION: GENERAL: He is currently alert and oriented. VITAL SIGNS: Stable, afebrile. HEENT: He is not icteric. NECK: Supple. CHEST: Clear. HEART: S1 and S2. No murmur. ABDOMEN: Soft. IMPRESSION: Osteomyelitis. Discussed with the medical team. We are waiting on cultures. We will discharge home with IV antibiotic for 6 weeks, weekly CBC, weekly chem panel. Plan and recommendation depending on the cultures. The patient is aware. MD PAM Dalal/TANIA /[id number]
[2020-05-21] MEDS: METOPROLOL SUCCINATE 50 MG TAB XL PO SCH (20:15)
[2020-05-21] MEDS: VANCOMYCIN 1GM/NS 250 ML 250 ML IV SCH (20:30)
[2020-05-21] MEDS ORDERED: HYDROCODONE/APAP 5MG-325MG TAB PO PRN ×2 (20:45)
[2020-05-22] VITALS (10 sets, daily range): BP systolic 127–172; BP diastolic 68–86
--- NOTE | 2020-05-22 05:47 | Progress Note ---
DATE: SUBJECTIVE: The patient did well overnight. He did have some pain at the amputation site of his right toe. OBJECTIVE: VITAL SIGNS: Temperature 97.8, pulse 69, blood pressure 172/86, and sats 100%. GENERAL: In no apparent distress lying in bed. CARDIOVASCULAR: Regular rate and rhythm. LUNGS: Clear to auscultation bilaterally. ABDOMEN: Good bowel sounds. Soft and nontender. EXTREMITIES: No clubbing or cyanosis. Right foot is bandaged. NEUROLOGIC: Nonfocal. No new focal deficits. ASSESSMENT AND PLAN: 1. Osteomyelitis of the right phalanx. He is now status post amputation. Continue current care. Continue pain control. 2. Hypertension. 3. . 4. Anemia. Continue to monitor. 5. Chronic kidney disease, stage 3. Continue to monitor. Please see hospital chart for full details. MD MARIAJOSE Rich/TANIA /[id number]
[2020-05-22] MEDS: PIPER-TAZ 3.375 GM 50 ML IV SCH ×3 (06:16→17:35)
[2020-05-22] MEDS: CARBIDOPA/LEVODOPA 25/100 TAB PO SCH ×3 (06:16→17:35)
--- NOTE | 2020-05-22 07:10 | NUR ---
Bedside report and walking rounds completed with oncoming nurse. Patient in bed with call light within reach. No issues or concerns noted.
[2020-05-22] MEDS: CELECOXIB 200 MG CAP PO SCH ×2 (08:12→16:16)
[2020-05-22] MEDS: LOSARTAN POTASSIUM 100 MG TAB PO SCH ×2 (08:13→16:17)
[2020-05-22] MEDS: AZATHIOPRINE 50 MG TAB PO SCH ×2 (08:13→16:18)
[2020-05-22] MEDS: AMLODIPINE BESYLATE 5 MG TAB PO SCH (08:14)
[2020-05-22] MEDS: PRAMIPEXOLE DIHYDROCHLORIDE 1 MG TAB PO SCH ×3 (08:15→21:46)
[2020-05-22] MEDS: MUPIROCIN 2% OINT 22 GM TUBE TOP SCH ×2 (08:16→21:50)
--- NOTE | 2020-05-22 15:41 | NUR ---
Received outpatient IV antibiotic order from Dr. Qureshi. Order entered into system. Referral faxed to [facility] at [phone] / . Addendum: 05/22/20 at 1549 by Deloris Vance CM Leti FROST was notified of referral.
[2020-05-22] MEDS: CEFTRIAXONE SOD 2 GM/NS 100 ML 100 ML IV SCH (16:26)
[2020-05-22] MEDS: METOPROLOL SUCCINATE 50 MG TAB XL PO SCH (21:50)
--- NOTE | 2020-05-22 23:32 | Progress Note ---
DATE: SUBJECTIVE: Mr. Moyer is doing well. There is no new complaint. Discussed with him the plan. The cultures are negative from one over here. Discussed with medical team. PHYSICAL EXAMINATION: GENERAL: He is currently alert, oriented. VITAL SIGNS: Stable, afebrile. HEENT: He is not icteric. NECK: Supple. CHEST: Clear. HEART: S1, S2. No murmurs. ABDOMEN: Soft. IMPRESSION: Osteomyelitis of the foot. The patient to be discharged home with Rocephin 2 g daily for 8 weeks. Weekly CBC. Weekly Chem panel. Can be discharged home once all arranged. MD PAM Dalal/MODL /[id number]
--- NOTE | 2020-05-22 23:33 | Progress Note ---
DATE: SUBJECTIVE: The patient is doing well, one-day status post amputation of the right hallux. Kareem was removed. No strike through. The remaining dressing is left intact and Kareem rewrapped. The patient is having no pain. No complaints. He actually feels better today than he has. He is anxious to go home on IV antibiotics. He is having difficulty ambulating with a nonweightbearing orders. He states that he is unable to hop into the walker with his Parkinson's disorder. I will authorize partial weightbearing with a walker utilizing a reverse wedge shoe. His family will have to stop by the office to package pick up the reverse wedge shoe. We do have those there in stock and the patient understands that. He can discharge either this evening or tomorrow as soon as IV antibiotics have been arranged and the patient voices an understanding of this. He is to return to see me within 1 week of discharge for further dressing change and local wound care. Wound care was ordered at home. Bactroban and dry gauze. Revised weightbearing status to partial weightbearing at home with walker and reverse wedge shoe to offload the forefoot. He otherwise will continue with IV antibiotics as before and follow with me within 1 week of discharge. JOE Hernandez/TANIA /[id number]
[2020-05-23] VITALS: BP 168/78
[2020-05-23] MEDS: PIPER-TAZ 3.375 GM 50 ML IV SCH ×3 (00:54→12:00)
[2020-05-23] MEDS: CARBIDOPA/LEVODOPA 25/100 TAB PO SCH ×3 (00:54→12:35)
[2020-05-23 04:00] VITALS: BP 138/87
[2020-05-23 07:58] VITALS: BP 138/87
[2020-05-23 08:00] VITALS: BP 140/76
--- NOTE | 2020-05-23 08:11 | NUR ---
Spoke to pt regarding home infusions vs coming to the clinic daily for treatment. Pt states he would like to come into the clinic daily. Leti [facility] was informed and will call pt to schedule appointment time.
[2020-05-23] MEDS: MUPIROCIN 2% OINT 22 GM TUBE TOP SCH (09:00)
[2020-05-23] MEDS: LOSARTAN POTASSIUM 100 MG TAB PO SCH (09:06)
[2020-05-23] MEDS: CELECOXIB 200 MG CAP PO SCH (09:06)
[2020-05-23] MEDS: AZATHIOPRINE 50 MG TAB PO SCH (09:07)
[2020-05-23] MEDS: PRAMIPEXOLE DIHYDROCHLORIDE 1 MG TAB PO SCH (09:08)
[2020-05-23] MEDS: AMLODIPINE BESYLATE 5 MG TAB PO SCH (09:14)
[2020-05-23 09:15] VITALS: BP 138/87
--- NOTE | 2020-05-23 09:36 | NUR ---
Pt's appointment scheduled for tomorr and Tuesday at 10:30am at [facility]. Address and appointment time printed and given to pt. [address] [place] [address] also informed him [address] Cantu wants him to follow up in [address] Cantu's office information was also printed and given to pt. [address] [place], [place] [id number] Also spoke to pt regarding home health. Pt states to use any company that takes his insurance. Choice letter signed for [facility], [facility], and [facility]. Copy of choice letter given to pt. Informed pt that referral will be sent to [facility]. [facility]'s contact information was printed and given to pt. Asked pt to call them if he does not hear from them within 24 hrs of discharge. Signed choice letter placed in front of chart. IMM letter discussed with pt. He verbalized understanding. States he has been ready to go home. Copy given to pt. Signed copy placed in chart. Home health referral faxed to [facility] at [phone] / . Sugey Last with [facility] was notified of referral and dc for today.
--- NOTE | 2020-05-23 10:23 | Progress Note ---
DATE: SUBJECTIVE: The patient is seen today ready to discharge from hospital to home health. He has home health set up for dressing changes. He also has a IV antibiotics set up through infusion suite. He will stop by my office to diamond picker a reverse wedge shoe to allow for partial weightbearing on the right foot. He has Parkinson's like disorder that makes nonweightbearing very difficult for him. He can tolerate partial weightbearing on his foot at this point utilizing a reverse wedge shoe and walker. He otherwise will be seeing me on a weekly basis once discharged and should schedule an appointment accordingly. He is doing well today. No complaints and anxious to discharge. He is discharged pending clearance from Dr. Carnes if that is not already given. JOE Hernandez/TANIA /[id number]
[2020-05-23] MEDS ORDERED: ULTRAM50 MG PO (11:33)
[2020-05-23] MEDS ORDERED: NORVASC5 MG PO (11:34)
[2020-05-23 12:00] VITALS: BP 156/85
[2020-05-23] MEDS: CEFTRIAXONE SOD 2 GM/NS 100 ML 100 ML IV SCH (12:35)
--- NOTE | 2020-05-23 14:17 | NUR ---
patient with discharge orders. I carefully explained the process to get his walking shoe, IV antibiotics, prescriptions filled, when to follow up, what medications are new and need to be started and which to end, how to take care of his PICC, when to have them follow up for dressing changes, plus written instructions and orders for home health, walking shoe, and Dr. Smith orders for rocephin and when to d/c picc. Patient states understanding. Denies pain at discharge, states he hasn't really had any foot pain in 24 hours.
--- OUTSIDE RECORDS SUMMARY | 2020-05-23 15:47 | XMS REPORT | Continuity of Care Document ---
Author Author Level, NADEEN Dumont [employer] Address Unknown Phone Unavailable Care Team Providers Care Support Coordinator Name Role Phone [employer] Unavailable Un available Problems Problem Status Onset Date Classification Date Reported Comments Source DX: 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, NOT Active 04/04/2020 [facility] XRAY Active 08/14/2019 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 G61.81 Active 02/07/2018 [facility] CHRONIC INFLAMMATORY DEMYELINATING POLYN Active [facility] SPINAL STENOSIS, LUMBAR REGION WITH NEUR Active [facility] POSTLAMINECTOMY SYNDROME, NOT ELSEWHERE Active [facility] Medications Medication Details Route Status Patient Instructions Ordering Provider Order Date Source Omnipaque 300 Notes: (Same as: Omnipaque 300). WASTE: F/P - Black; E - Municipal Trash Bin Inactive 03/22/2018 [facility] Allergies, Adverse Reactions, Alerts Substance Category Reaction Severity Reaction type Status Date Reported Comments Source No Known Medication Allergies Assertion Drug aller gy [facility] Immunizations No Data Provided for This Section Results Order Name Results Value Reference Range Date Interpretation Comments Source CARDIAC ENZYMES Total CK 661 12 - 191 03/22/2018 [facility] CHEM PANEL Aldolase 10.7 1.2 - 7.6 03/22/2018 [facility] BODY FLUIDS Protein CSF 98 15 - 45 03/22/2018 [facility] BODY FLUIDS Glucose CSF 61 45 - 80 03/22/2018 [facility] BODY FLUIDS Lymph CSF 18 40 - 80 03/22/2018 [facility] BODY FLUIDS Monocyte CSF 13 15 - 45 03/22/2018 [facility] BODY FLUIDS Eos CSF 3 03/22/2018 [facility] FLUIDS Segs CSF 66 0 - 6 03/22/2018 [facility] BODY FLUIDS Color CSF Ligh t Red *ABN* (03/22/18 12:00 PM) Colorless 03/22/2018 [facility] BODY FLUIDS Supernat CSF [place] rless (03/22/18 12:00 PM) Colorless 03/22/2018 [facility] BODY FLUIDS Clarity CSF Slig ht Blood *ABN* (03/22/18 12:00 PM) Clear 03/22/2018 [facility] BODY FLUIDS Tube Num CSF 4 03/22/2018 [facility] BODY FLUIDS RBC CSF 76364 0 - 03 03/22/2018 [facility] BODY FLUIDS WBC CSF 10 0 - 53 03/22/2018 [facility] IMMUNOLOGY IgG Lvl CSF 6.0 2.0 - 4.0 03/22/2018 [facility] Pathology Reports No Data Provided for This Section Diagnostic Reports Report Value Date Source Spine Thoracic wo contrast MRI PROCEDURE INFORMATION: Exam: MR Thoracic Spine Without Contrast Exam date and time: 04/21/2020 5:37 PM Age: 69 years old Clinical indication: Postlaminectomy syndrome, not elsewhere classified; Additional info: /postlaminectomy syndrome TECHNIQUE: Imaging protocol: Multiplanar magnetic resonance images of the thoracic spine without intravenous contrast. COMPARISON: No relevant prior studies available. FINDINGS: Vertebrae: There is diffuse anterior lateral spondylosis. There is no osseous metastatic disease or compression fracture deformity. Postoperative changes with anterior cervical fusion is demonstrated at C6-C7. Spinal cord: The conus medullaris is normally positioned and there is no intrathecal mass. There is no myelomalacia or cord edema. C4-C5: At the T5-6 disc space there is broadening of the posterior longitudinal ligament and minimal spondylosis without spinal stenosis. T1-T2: No significant disc disease. No significant spinal canal stenosis. T2-T3: No significant disc disease. No significant spinal canal stenosis. T3-T4: No significant disc disease. No significant spinal canal stenosis. T4-T5: At the T4-5 disc space, there is a 2 mm central protrusion/subligamentous extrusion without spinal stenosis. T5-T6: No significant disc disease. No significant spinal canal stenosis. T6-T7: At the T6-7 disc space, there is a 2.4 mm left paracentral subligamentous extrusion and broadening of the posterior longitudinal ligament without central or foraminal stenosis. T7-T8: At the T7-8 disc space, there is a 3 mm left lateral extruded disc herniation attenuating distal lateral recess. There is minimal flattening of the left ventral lateral cord without displacement. T8-T9: At the T8-9 disc space there is a 2 mm right paracentral protrusion without central or foraminal stenosis. T9-T10: No significant disc disease. No significant spinal canal stenosis. T10-T11: No significant disc disease. No significant spinal canal stenosis. T11-T12: No significant disc disease. No significant spinal canal stenosis. At the T12-L1 disc space there is Modic 1 signal alteration of the right T12 vertebral body and anterior spondylosis. There is a hemangioma of the L1 vertebral body. Soft tissues: Unremarkable. IMPRESSION: Multilevel discogenic disease is present as described without significant central canal stenosis. There is no compression fracture deformity., Eddie Vo MD On 04/22/2020 07:53:44; [id number] 04/21/2020 [facility] Spine Lumbar Comp w Bend views DX PROCEDURE INFORMATION: Exam: XR Lumbosacral Spine Complete with Flexion/Extension, 6 or More Views Exam date and time: 08/14/2019 12:40 PM Clinical history: 69 years old, male; Spinal stenosis, lumbar region with neurogenic claudication; Additional info: /m48.062 lumbar stenosis with neurogenic claudication TECHNIQUE: Imaging protocol: XR of the lumbosacral spine with flexion/extension, 6 or more views. Views: AP Lateral Oblique with Flexion and Extension COMPARISON: CT lumbar spine myelogram 03/23/2018. FINDINGS: Vertebrae: Status post L3 laminectomy. Moderate levoscoliotic curvature of the lumbar spine centered around L2-L3. No significant spondylolisthesis or abnormal motion between flexion and extension. Vertebral body heights are maintained. Moderate to severe degenerative disc disease throughout the lumbar spine with loss of disc space, marginal endplate osteophyte formation, and endplate sclerosis. Multilevel facet arthropathy is present. Soft tissues: Unremarkable. IMPRESSION: 1. Status post L3 laminectomy. 2. Moderate to severe multilevel lumbar spine degenerative disc disease. 3. Moderate levoscoliosis. Danyel Pandey MD On 08/15/2019 14:08:14; [id number] 08/14/2019 [facility] Retroperitoneal Complete US BI LATERAL RENAL ULTRASOUND: HISTORY: Left hydronephrosis on CT [...] unremarkable. IMPRESSION: 1. Moderate to marked left hydronephrosi s. This could be a developmental UPJ obstruction. Consider CT for further evaluation. 2. Parenchymal thinning suggesting chron ic kidney disease. 3. No other significant ultrasound abnor malities of the kidneys. [id number] 03/28/2018 [facility] Spine lumbar myelogram CT Denisse ent Name: NADEEN PINA : 1950; Age: 67 years Male MR: [id number] Study: Spine lumbar myelogram CT 03/22/2018 10:38 [...] IMPRESSION: 1. L1-L2 moderate central and lateral r ecess stenosis with moderate bilateral foraminal stenosis. 2. L2-L3 moderate bilateral foraminal s tenosis. 3. L3-L4 severe right and moderate left foraminal stenosis. 4. L4-L5 severe central, lateral recess stenosis with moderate to severe bilateral foraminal stenosis. 5. L5-S1 severe central with moderate t o severe bilateral lateral recess stenosis. Moderate bilateral foraminal stenosis. 6. Prior L3 laminectomy. 7. Right nephrolithiasis. 8. Left parapelvic cystic change versus hydronephrosis of the left kidney incompletely evaluated. Initial evaluation with an ultrasound would provide more detail. These findings are communicated to [place] in the office of Day Batres MD at 03/23/2018 10:05 AM CDT. SL: [id number] 03/22/2018 [facility] Spine cervical myelogram CT Pa tient Name: NADEEN PINA : 1950; Age: 67 years y/o Male MR: [id number] Study: Spine cervical myelogram CT 03/22/2018 10:37 [...] C7 levels. 3. C2-C3 small broad-based disc bulging . SL: [id number] 03/22/2018 [facility] Spine cervical myelogram DX Pa tient Name: NADEEN PINA : 1950; Age: 67 years y/o Male MR: [id number] Study: Spine lumbar myelogram DX, Spine cervical [...] spinal stenosis. IMPRESSION: 1. Fluoroscopically guided lumbar punctu re. 2. Multilevel disc abnormalities of the cervical spine. 3. Multilevel spinal stenosis of the lum bar spine. SL: [id number] 03/22/2018 [facility] Spine lumbar puncture w fluoro DX Patient Name: NADEEN PINA : 1950; Age: 67 years y/o Male MR: [id number] Study: Spine lumbar myelogram DX, Spine cervical [...] spinal stenosis. IMPRESSION: 1. Fluoroscopically guided lumbar punctu re. 2. Multilevel disc abnormalities of the cervical spine. 3. Multilevel spinal stenosis of the lum bar spine. SL: [id number] 03/22/2018 [facility] Spine lumbar myelogram DX Denisse ent Name: NADEEN PINA : 1950; Age: 67 years y/o Male MR: [id number] Study: Spine lumbar myelogram DX, Spine cervical [...] spinal stenosis. IMPRESSION: 1. Fluoroscopically guided lumbar punctu re. 2. Multilevel disc abnormalities of the cervical spine. 3. Multilevel spinal stenosis of the lum bar spine. SL: [id number] 03/22/2018 [facility] Consultation Notes No Data Provided for This Section Discharge Summaries No Data Provided for This Section History and Physicals No Data Provided for This Section Vital Signs No Data Provided for This Section Encounters Location Location Details Encounter Type Encounter Number Reason For Visit Attending Provider ADM Date DC Date Status Source [facility] Outpatient [id number] Tuesday03/22/2018 03/23/2018 [facility] Outpatient [id number] Tuesday03/28/2018 03/29/2018 [facility] Outpatient [id number] Yohan Zapata 08/14/2019 08/15/2019 [facility] Outpatient [id number] Yohan Zapata 04/21/2020 04/22/2020 [facility] Procedures No Data Provided for This Section Assessment and Plan No Data Provided for This Section Plan of Care No Data Provided for This Section Social History Social History Date Source Social History TypeResponse 04/22/2020 [facility] Family History No Data Provided for This Section Advance Directives No Data Provided for This Section Functional Status No Data Provided for This Section
--- OUTSIDE RECORDS SUMMARY | 2020-05-23 15:47 | XMS REPORT | Summary of Care ---
Author Author [facility] Organization [facility] Address Unknown Phone Unavailable Encounter HQ Encntr_[id number](FIN) [id number] Date(s): 08/14/19 - 08/14/19 [facility] [address] [place] [address]- Discharge Disposition: Home or Self Care Attending Physician: Yohan Zapata MD Admitting Physician: Yohan Zapata MD Vital Signs No data available for this section Problem List No data available for this section Allergies, Adverse Reactions, Alerts No Known Medication Allergies Medications No data available for this section Results No data available for this section Immunizations No data available for this section Procedures No data available for this section Social History No data available for this section Assessment and Plan No data available for this section
--- OUTSIDE RECORDS SUMMARY | 2020-05-23 15:47 | XMS REPORT | Clinical Summary ---
Author Author [facility] Address Unknown Phone Unavailable Care Team Providers Care Ferryboat Operator Name Role Phone Unknown, Phys PCP Unavailable Allergies Not on File Medications Not on file Active Problems Problem Noted Date CIDP (chronic inflammatory demyelinating polyneuropat hy) 05/09/2017 Social History Date Tobacco Use Types [...] (1 of 2 - PCV13) INFLUENZA VACCINE 05/24/2020 Results Not on fileafter 05/14/2019 Insurance Type Payer Benefit Subscriber ID Effective Phone Address Plan / Dates Group Medicare MEDICARE MEDICARE xxxxxxxxxx 2013- JORDIN, PART A AND Present [place] [employer] OF xxxxxxxxx 2017-Sandra keene Advance Directives For more information, please contact: [phone] 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
--- OUTSIDE RECORDS SUMMARY | 2020-05-23 16:07 | XMS REPORT | Continuity of Care Document ---
Author Author [facility] [place] [place] t Organization [facility] Address [address] [place] [address] Phone Unavailable Care Team Providers Care Soaker Meat Name Role Phone REY SULLIVAN DO PCP PRABHAKAR MACIAS Attphys Unavailable Amilcar Zapata Attphys LANG SALAZAR Attphys Unavailable HAMPEL, KOSTA Attphys Unavailable Tuesday, Iman Bernstein Attphys PRABHAKAR MACIAS Admphys Unavailable Amilcar Zapata Admphys LANG SALAZAR Admphys Unavailable Payers Payer Name Policy Type Policy Number Effective Date Expiration Date S lexie Miscellaneous Indemnity [id number] 2018 00:00:00 [facility] [place] [facility] Medicare A & B [id number] 2013 00:00:00 [facility] Problems Condition Name Condition Details Condition Category Status Onset Date Resolution Date Last Treatment Date Treating Clinician Comments Source DX: 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, NOT DX: 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, NOT Active 04/04/2020 [facility] Active 2020-04-04 00:00:00 2020-04-21 16:34:00 Keon Bhatia XRAY XRAY Active 08/14/2019 [facility] Active 2019-08-14 11:53:00 2019-08-14 12:06:00 [facility] M48.062 - SPINAL STENOSIS, LUMBAR REGION M48.062 - SPINAL STENOSIS, LUMBAR REGION Active 08/13/2019 [facility] [place] [facility] Active 2019-08-13 00:01:00 2019-12-08 09:38:00 [facility] 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 2017-05-09 00:00:00 Jordin Cruz CHRONIC INFLAMMATORY DEMYELINATING POLYN CHRONIC INFLAMMATORY DEMYELINATING POLYN Active [facility] Active 2018-03-28 08:27:00 [facility] SPINAL STENOSIS, LUMBAR REGION WITH NEUR SPINAL STENOSIS, LUMBAR REGION WITH NEUR Active [facility] Active 2019-08-14 12:06:00 [facility] POSTLAMINECTOMY SYNDROME, 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, NOT ELSEWHERE Active [facility] Active 2020-04-21 16:34:00 [facility] Allergies, Adverse Reactions, Alerts Allergy Name Allergy Type Status Severity Reaction(s) Onset Date Inacti ve Date Treating Clinician Comments Source No Known Allergies DA Active U 2016-09-08 00:00:00 [facility] No Known Medication Allergies No Known Medication Allergies Active [facility] Social History Social Habit Start Date Stop Date Quantity Comments Source Sex Assigned At Karen Cruz Medications Ordered Medication Name Filled Medication Name Start Date Stop Da te Current Medication? Ordering Clinician Indication Dosage Frequency Signature (SIG) Comments Components Source Omnipaque 300 2018-03-22 15:04:00 No Notes: (Same as:Omnipaque 300). WASTE: F/P - Black; E - Municipal Trash Bin [facility] Azathioprine 50 Mg Tab Azathioprine 50 Mg Tab Yes 50 Daily [facility] Carbidopa/Levodopa (Sinemet 25-100 Mg Tablet) 1 Each T ablet Carbidopa/Levodopa (Sinemet 25-100 Mg Tablet) 1 Each Tablet Yes 2 Three Times A Day [facility] Gabapentin 300 Mg Capsule Gabapentin 300 Mg Capsule Yes 1 As Needed [facility] Meloxicam 7.5 Mg Tablet Meloxicam 7.5 Mg Tablet Yes 15 Daily [facility] Metoprolol Succinate 50 Mg Tab.er.24h Metoprolol Succinate 50 Mg Ta b.er.24h Yes 50 Bedtime [facility] Pramipexole Di-Hcl (Pramipexole Dihydrochloride) 0.5 M g Tablet Pramipexole Di- Hcl (Pramipexole Dihydrochloride) 0.5 Mg Tablet Yes .5 Three Times A Day [facility] Tylenol Tylenol Yes 650 As Needed [facility] Valsartan (Diovan) 160 Mg Tab Valsartan (Diovan) 160 Mg Tab Yes 1 Daily [facility] Pramipexole Di-Hcl (Pramipexole Dihydrochloride) 0.25 Mg Tablet, 0.5 Mg Oral Pramipexole Di-Hcl (Pramipexole Dihydrochloride) 0.25 Mg Tablet, 0.5 Mg Oral 2019-04-23 00:00:00 No .5 Daily [facility] Aspirin 325 Mg Tablet, 325 Mg Oral Aspirin 325 Mg Tablet, 325 Mg Oral 2019-04-19 00:00:00 No 325 Daily [facility] Azathioprine (Imuran) 50 Mg Tablet, 50 Mg Oral Azathio mateus (Imuran) 50 Mg Tablet, 50 Mg Oral 2019-04-19 00:00:00 No 50 Daily [facility] Meloxicam 7.5 Mg Tablet, 7.5 Mg Oral Meloxicam 7.5 Mg Tablet, 7. 5 Mg Oral 2019-04-19 00:00:00 No 7.5 Daily [facility] Metoprolol Tartrate 25 Mg Tablet, 25 Mg Oral Metoprolo l Tartrate 25 Mg Tablet, 25 Mg Oral 2019-04-19 00:00:00 No 25 Daily [facility] Valsartan (Diovan) 160 Mg Tab, 160 Mg Oral Valsartan ( Diovan) 160 Mg Tab, 160 Mg Oral 2019-04-19 00:00:00 No 160 Daily [facility] Procedures Procedure Date / Time Performed Performing Clinician Sera e Total replacement of knee joint 2019-04-23 00:00:00 ZELDA SALAZAR [facility] X-ray of chest, two views 2019-04-19 00:00:00 LANG SALAZAR [facility] Plan of Care Planned Activity Planned Date Details Comments Source Future Scheduled Test 2020-05-24 00:00:00 INFLUENZA VACCINE [code = INFLUENZA VACCINE] [facility] Future Scheduled Test 2013 00:00:00 65+ PNEUMOCOCCAL V ACCINE (1 of 2 - PCV13) [code = 65+ PNEUMOCOCCAL VACCINE (1 of 2 - PCV13)] [facility] Future Scheduled Test 1998 00:00:00 COLONOSCOPY SCREEN ING [code = COLONOSCOPY SCREENING] [facility] [place] Scheduled Test 1998 00:00:00 SHINGLES VACCINES (#1) [code = SHINGLES VACCINES (#1)] [facility] Encounters Start Date/Time End Date/Time Encounter Type Admission Type Attendi [facility] Facility Care Department Encounter ID Source 2020-04-21 16:25:00 2020-04-21 23:59:00 [facility] [id number] 2020-04-21 16:25:00 2020-04-21 16:25:00 Outpatient [id number] 2019-08-14 11:53:00 2019-08-14 23:59:00 [facility] [id number] 2019-04-23 08:18:00 2019-04-24 17:24:00 Discharged Inpatient (obs) 3 LANG SALAZAR [facility] [id number] [facility] 2018-03-28 08:19:00 2018-03-28 23:59:00 Outpatient TuesdayDay [facility] [id number] 2018-03-22 09:27:00 2018-03-22 23:59:00 Outpatient Tuesday, Day Valerio [facility] [id number] Results Test Description Test Time Test Comments Results Result Comments Source CHEST XRAY LINE PLACEMENT 2020-05-15 20:03:00 [place] [address] Patient Name: NADEEN PINA MR #: [id number] : 1950 Age/Sex: 69/M Req #: [id number] Adm Physician: PRABHAKAR MACIAS MD Ordered by: PRABHAKAR MACIAS MD Report #: [id number] Location: MED/SURG2 Room/Bed: [facility] Procedure: [id number] DX/CHEST XRAY LINE PLACEMENT Exam Date: 05/15/20 Exam Time: 1939 REPORT STATUS: Signed Examination: Single AP view of the chest. COMPARISON: None. INDICATION: Line placement DISCUSSION: Lines/tubes: Left PICC line with tip overlying the cavoatrial junction Lungs: Low lung volume. Pleura: There is no pleural effus ion or pneumothorax. Heart and mediastinum: The heart and the mediastinum are unremarkable. Bones and soft tissues: No acute bony abnormalities. IMPRESSION: 1. Left PICC line with tip overlying the cavoatrial junction Signed by: Dr. Jerson Smallwood M.D. on 05/15/2020 8:04 PM Dictated By: JERSON SMALLWOOD MD 03 Transcribed By: JUSTIN on 05/15/202003 COPY TO: PRABHAKAR MACIAS MD MRI FOOT RIGHT WO 2020-05-15 11:35:00 [place] [address] Patient Name: NADEEN PINA MR #: [id number] : 1950 Age/Sex: 69/M Req #: [id number] [facility] Physician: PRABHAKAR MACIAS MD Ordered by: DAWSON URBANO DPM Report #: [id number] Location: MED/SURG2 Room/Bed: 200-1 Procedure: [id number] MRI/MRI FOOT RIGHT WO Exam Date: Exam Time: REPORT STATUS: Signed MRI of the right forefoot without contrast. History: Osteomyelitis of the right great toe. Foot pain. Decreased range of motion. Technique: Multiplanar multisequence MRI of the foot without contrast Comparison: Radiographs 05/14/2020 Findings: Skin ulc eration with skin thickening and abnormal soft tissue edema centered at the distal first toe. Cortical destruction and abnormal bone marrow edema involving the distal phalanx of the first toe consistent with osteomyelitis. The proximal phalanx of the first toe appears to be uninvolved. Scattered degenerative change about the remaining visualized osseous structures. No acute fracture, dislocation or evidence of avascular necrosis. Diffuse muscle atrophy. No ligamentous or tendon tear. The visualized neurovascular bundles are intact. Extensive soft tissue edema most pronounced at the dorsal foot could be due to cellulitis. Micrometallic artifact at the distal first toe. Impression: Skin ulceration with skin thickening and abnormal soft tissue edema centered at the distal first toe. Cortical destruction and abnormal bone marrow edema involving the distal phalanx of the first toe consistent with osteomyelitis. No well-formed drainable fluid collection/abscess is seen. Signed by: Dr. Dolores Nava M.D. on 05/15/2020 11:38 AM Dictated By: DOLORES NAVA MD, MD 1131 Transcribed By: JUSTIN on 05/15/20 1136 COPY TO: DAWSON URBANO DPM CHEST SINGLE (PORTABLE) 2020-05-14 18:09:00 [place] [address] Patient Name: NADEEN PINA MR #: [id number] : 1950 Age/Sex: 69/M Req #: [id number] Adm Physician: PRABHAKAR MACIAS MD Ordered by: DAWSON URBANO DPM Report #: [id number] Location: MED/SURG2 Room/Bed: [facility] Procedure: [id number] DX/CHEST SINGLE (PORTABLE) Exam Date: 05/14/20 Exam Time: 1730 REPORT STATUS: Signed EXAMINATION: CHEST SINGLE (PORTABLE) INDICATION: Osteomyelitis DIRECT ADMIT 20200514 COMPARISON: 04/19/2019 FINDINGS: TUBES and LINES: None. LUNGS: Lungs are well inflated. Lungs are clear. There is no [place] dence of pneumonia or pulmonary edema. PLEURA: No pleural effusion or pneumothorax. HEART AND MEDIASTINUM: The cardiomediastinal silhouette is unremarkable. BONES AND SOFT TISSUES: No acute osseous lesion. Soft tissues are unremarkable. UPPER ABDOMEN: No free air under the diaphragm. IMPRESSION: No acute thoracic abnormality. Signed by: Dr. Dolores Nava M.D. on 05/14/2020 6:09 PM Dictated By: DOLORES NAVA MD, MD 08 Transcribed By: JUSTIN on 05/14/201808 COPY TO: DAWSON URBANO DPM FOOT RIGHT COMPLETE 2020-05-14 18:07:00 [place] [address] Patient Name: NADEEN PINA MR #: [id number] : 1950 Age/Sex: 69/M Req #: [id number] Adm Physician: PRABHAKAR MACIAS MD Ordered by: DAWSON URBANO DPM Report #: [id number] Location: [facility]/SURG Room/Bed: 200-1 Procedure: [id number] DX/FOOT RIGHT COMPLETE Exam Date: 05/14/20 Exam Time: 1730 REPORT STATUS: Signed Radiographs of the right foot - 3 views HISTORY: Pain. Osteomyelitis COMPARISON: None available. FINDINGS: Bones: No acute displaced fracture. Osseous erosion with bone fragmentation at the distal first toe with adjacent soft tissue swelling and skin ulceration consistent with osteomyelitis Joints: Scattered degenerative change. Soft tissues: Soft tissue swelling IMPRESSION: Osseous erosion with bone fragmentation at the distal first toe with adjacent soft tissue swelling and skin ulceration consistent with osteomyelitis Signed by: Dr. Dolores Nava M.D. on 05/14/2020 6:09 PM Dictated By: DOLORES NAVA MD, MD 08 Transcribed By: JUSTIN on 05/14/201808 COPY TO: DAWSON URBANO DPM Hemoglobin 2019-04-24 05:36:00 Test Item Hemoglobin (test code = 96064-1) 9.6 14.0-18.0 L [facility] 05:36:00* Test Item Value Reference Range Interpretation Comments Hematocrit (test code = 4544-3) 29.3 38.2-49.6 L [facility] [place] [facility] CenterKN[facility] RIGHT 1-2 [id number] 09:21:00 [facility] [address] [place], [place] [address] Patient Name: NADEEN PINA MR #: [id number] : 1950 Age/Sex: 68/M Req #: [id number] Adm Physician: LANG SALAZAR MD Ordered by: LANG SALAZAR MD Report #: [id number] Location: MED/SURG Room/Bed: [facility] Procedure: [id number] DX/ KNEE RIGHT 1-2 VIEWS Exam Date: 04/23/19 Exam Time: 0856 REPORT STATUS: Signed Knee radiograph, 2 views. History: Post-operative knee replacement Findings : Postoperative findings of right knee arthroplasty with prosthetic component s in anatomic alignment. No acute fracture. Overlying subcutaneous emphysema a nd surgical skin rena are present. Small joint effusion. Atherosclerotic vascular calcifications. IMPRESSION: Status post right knee replacement i n anatomic position. Signed by: Diony Lindsay MD on 04/23/2019 9:26 AM D ictated By: DIONY LINDSAY MD 0 926 Transcribed By: JUSTNI on 04/23/19 0926 COPY TO: LANG SALAZAR MD CHEST 2 [id number] 13:20:[address] [address] Patient Name: NADEEN PINA MR #: [id number] : 1950 Age/Sex: 68/M Req #: [id number] Adm Physician: Ordered by: LANG SALAZAR MD Report #: [id number] Location: OR Room/Bed: Procedure: [id number] DX/C HEST 2 VIEWS Exam Date: 04/19/19 Exam Time: 1220 REPORT STATUS: Signed EXAM: CHEST 2 VIEWS, PA and lateral DATE: 04/19/2019 Time stamp on exam: 12:43 PM INDICAT ION: Preoperative COMPARISON: None FINDINGS: LINES/TUBES: None LAURENCE GS: No consolidations or edema. PLEURA: No effusions or pneumothorax. HEART AND MEDIASTINUM: Normal size and contour. BONES AND SOFT TISSUES: No acute findings. Orthopedic plate overlies the lower cervical spine. Degenerat dulce changes of the spine are noted. IMPRESSION: No acute thoracic abnorma lity. Signed by: Dr. Morgan Valdivia DO on 04/19/2019 1:21 PM Dictated By: MORGAN VALDIVIA DO 1321 Transcribed By: JUSTIN on 04/19/19 1321 COPY TO: LANG BINGAHM MD White Blood [id number] 13:19:00* Test Item Value Reference Range Interpretation Comments White Blood Count (test code = 6690-2) 6.88 4.8-10.8 [facility] [id number] 13:19:00* Test Item Value Reference Range Interpretation Comments Red Blood Count (test code = 789-8) 3.20 4.3-5.7 L [facility] [place] [facility] CenterMean Corpuscular [id number] 13:19:00* Test Item Value Reference Range Interpretation Comments Mean Corpuscular Volume (test code = 787-2) 103.8 81-99 H [facility] [place] [facility] Corpuscular [id number] 13:19:00* Test Item Value Reference Range Interpretation Comments Mean Corpuscular Hemoglobin (test code = 785-6) 33.4 28-32 H [facility] [place] [facility] Corpuscular Hemoglobin Concent 2019-04-19 13:19:00* Test Item Value Reference Range Interpretation Comments Mean Corpuscular Hemoglobin Concent (test code = 786-4) 32.2 31-35 [facility] Cell Distribution [id number] 13:19:00* Test Item Value Reference Range Interpretation Comments Red Cell Distribution Width (test code = 35413-1) 15.2 11.7 -14.4 H [facility] [place] [facility] CenterPlatelet [id number] 13:19:00* Test Item Value Reference Range Interpretation Comments Platelet Count (test code = 777-3) 203 140-360 [facility] [place] [facility] CenterNeutrophils (%) (Auto)2019-04-19 13:19:00 * Test Item Value Reference Range Interpretation Comments Neutrophils (%) (Auto) (test code = 43094-6) 84.0 38.7-80.0 H [facility] [place] [facility] CenterLymphocytes (%) (Auto)2019-04-19 13:19:00 * Test Item Value Reference Range Interpretation Comments Lymphocytes (%) (Auto) (test code = 736-9) 6.7 18.0-39.1 L [facility] [place] [facility] CenterMonocytes (%) (Auto)2019-04-19 13:19:00* Test Item Value Reference Range Interpretation Comments Monocytes (%) (Auto) (test code = 5905-5) 6.8 4.4-11.3 [facility] [place] [facility] CenterEosinophils (%) (Auto)2019-04-19 13:19:00 * Test Item Value Reference Range Interpretation Comments Eosinophils (%) (Auto) (test code = 713-8) 1.5 0.0-6.0 [facility] [place] [facility] (%) (Auto)2019-04-19 13:19:00* Test Item Value Reference Range Interpretation Comments Basophils (%) (Auto) (test code = 706-2) 0.7 0.0-1.0 [facility] [place] [facility] CenterIM GRANULOCYTES %2019-04-19 13:19:00* Test Item Value Reference Range Interpretation Comments IM GRANULOCYTES % (test code = IM GRANULOCYTES %) 0.3 0.0- 1.0 [facility] [place] [facility] CenterNeutrophils # (Auto)2019-04-19 13:19:00* Test Item Value Reference Range Interpretation Comments Neutrophils # (Auto) (test code = 751-8) 5.8 2.1-6.9 [facility] [place] [facility] CenterLymphocytes # (Auto)2019-04-19 13:19:00* Test Item Value Reference Range Interpretation Comments Lymphocytes # (Auto) (test code = 12039-8) 0.5 1.0-3.2 L [facility] [place] [facility] CenterMonocytes # (Auto)2019-04-19 13:19:00* Test Item Value Reference Range Interpretation Comments Monocytes # (Auto) (test code = 742-7) 0.5 0.2-0.8 [facility] [place] [facility] CenterEosinophils # (Auto)2019-04-19 13:19:00* Test Item Value Reference Range Interpretation Comments Eosinophils # (Auto) (test code = 711-2) 0.1 0.0-0.4 [facility] [place] [facility]ophils # (Auto)2019-04-19 13:19:00* Test Item Value Reference Range Interpretation Comments Basophils # (Auto) (test code = 704-7) 0.1 0.0-0.1 [facility] [place] [facility] CenterAbsolute Immature Granulocyte (auto 2019-04-19 13:19:00* Test Item Value Reference Range Interpretation Comments Absolute Immature Granulocyte (auto (tosin t code = Absolute Immature Granulocyte (auto) 0.02 0-0.1 [facility] [place] [facility] CenterRENAL SCAN W/[id number] 22:08:00 [place] [address] Patient Name: NADEEN PINA MR #: [id number] : 1 Age/Sex: 67/M Req #: [id number] Adm Physician: Ordered by: KOSTA YODER MD Report #: [id number] Location: CT Room/Bed: Procedure: [id number] NM/RENAL SCAN W/LASIX Exam Date: 04/19/18 Exam Time: 1500 REPORT STATUS: Signed Renal Scan with Lasix [place] Clinical information: 67 M with hydronephr osis and chronic kidney disease. Technique: Following intravenous administ ration of 10 mCi of Tc-99m MAG3, dynamic images of the kidneys in the posterio r projection were obtained through 40 minutes. Lasix 40 mg was administered i ntravenously at 11 minutes post injection of the tracer. Report: Lef t kidney: Perfusion of the left kidney is prompt. The kidney is markedly atre tic with only a very small crescent of renal parenchyma in the left renal bed. Extraction of tracer from the blood pool by the very minimal amount of renal parenchyma is decreased. Clearance of tracer from the renal parenchyma begins promptly but is not complete by the end of the study. The pelvicalyceal sys tem is not dilated. Some pooling of tracer is seen within the pelvicalyceal s ystem. Drainage of tracer from the pelvicalyceal system is adequate prior to administration of Lasix. No significant stasis of tracer is seen within the l eft ureter. Right kidney: Perfusion to the right kidney is prompt. The rig ht kidney has a distorted and rounded reniform shape and the kidney is reduced in size. Extraction of tracer by the renal parenchyma is mild to moderately decreased. Clearance of tracer from the renal parenchyma begins promptly but i s not complete by the end of the study. The pelvicalyceal system is not dilat ed. Physiologic pooling of tracer within the pelvicalyceal system is seen. Drainage of tracer from the pelvicalyceal system is adequate prior to adminis tration of Lasix. No significant stasis of tracer is seen within the right ur eter. Differential renal function: The left kidney contributes 7% of total renal function and the right kidney contributes 93% (normal 43-57%). Impr ession: 1. 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 The minimal amount of remaining renal parenchyma shows mild to moderate medical renal disease but functions as well as the right renal parenchyma. No hydronephrosis is present and no obstructio n is present. 2. The right kidney shows evidence of mild to moderate medic al renal disease. No hydronephrosis is present . No physiologically signific ant obstruction of the renal collecting system is present. Signed by: Dr. Reina Baker M.D. on 04/19/2018 10:20 PM Dictated By: REINA BAKER MD 19 Transcribed By: KERI GUPTA on 04/19/182219 COPY TO: KOSTA YODER MD CT ABDOMEN/PELVIS WO 2018-04-19 13:41:00 [place] [address] Patient Name: NADEEN PINA MR #: [id number] : 1950 Age/Sex: 67/M Req #: [id number] Adm Physician: Ordered by: KOSTA YODER MD Report #: [id number] Location: CT Room/Bed: Procedure: [id number] CT/CT ABDOMEN/PELVIS WO Exam Date : 04/19/18 Exam Time: 1315 REPORT STATUS: Mari d PROCEDURE: CT ABDOMEN AND PELVIS WITHOUT CONTRAST TECHNIQUE: The a bdomen and pelvis were scanned utilizing a multidetector helical scanner from the diaphragm to the lesser trochanter. No IV contrast was administered bec ause of stone protocol. Coronal and sagittal multiplanar reformations were o btained. DLP: 792.6 mGy-cm COMPARISON: None. INDICATIONS: HYDR ONEPHROSIS FINDINGS: ABSENCE OF INTRAVENOUS CONTRAST DECREASES SENSI TIVITY FOR DETECTION OF FOCAL LESIONS AND VASCULAR PATHOLOGY. LOWER THO RAX: Coronary artery and aortic annular calcifications. HEPATOBILIARY: He patic steatosis. No focal hepatic lesions. No biliary ductal dilatation. S PLEEN: No splenomegaly. PANCREAS: No focal masses or ductal dilatation. ADRENALS: No adrenal nodules. KIDNEYS/URETERS: Punctate calcifications in t he right kidney measuring up to 5 mm likely a combination of renal calculi an d vascular calcifications. No right hydronephrosis or suspicious renal contou r abnormalities. Severe left hydronephrosis with diffuse cortical thinnin g. No hydroureter. No apparently asymmetric perinephric stranding. Punctate cluster of non-obstructing stones in the interpolar region (series 2 image 38). No suspicious renal contour abnormalities. PELVIC ORGANS/BLADDER: Un remarkable. PERITONEUM / RETROPERITONEUM: No free air or fluid. LYMPH NO ROSITA: No lymphadenopathy. VESSELS: Mild scattered atherosclerotic calcification s. No abdominal aortic aneurysm. GI TRACT: No distention or wall thicke georgette. Few sigmoid colonic diverticula without evidence of diverticulitis. BONES AND SOFT TISSUES: Relative atrophy of the right pelvic musculature. Advanced degenerative changes of the lumbar spine. Right L2-L3 pars defect. IMPRESSION: 1. 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 Recommend c orrelation with same day nuclear medicine exam. 2. Bilateral nephrolithiasis. 3. Colonic diverticulosis. 4. Hepatic steatosis. Dictated b y: Raffaele Hernandez M.D. on 04/19/2018 at 13:41 Electronically approved by: Raffaele Hernandez M.D. on 04/19/2018 at 13:41 Dictated By: JASON HERNANDEZ MD 1341 Transc ribed By: ARTUR on 04/19/18 1341 COPY TO: KOSTA YODER MD CARDIAC [id number] 21:02:41239Axjjzcum HermannCHEM [id number] 21:02:0010.7 [facility] HermannBODY [id number] 17:00:0098[facility] 2018-03-22 17:00:0061[facility] [id number] 17:00:0018[facility] [id number] 17:00:0013[facility] [id number] 17:00:003[facility] [id number] 17:00:0066[facility] [id number] 17:00:00Light Red *ABN*(03/22/18 12:00 PM)[facility] [id number] 17:00:00Colorless (03/22/18 12:00 PM)[facility] FLU[facility] 2018-03-22 17:00:00Slight Blood *ABN*(03/22/18 12:00 PM)[facility] [id number] 17:00:00* Test Item Value Reference Range Interpretation Comments Tube Num CSF (test code = Tube Num CSF) 4 1 [facility] [id number] 17:00:8922315Vaqcqmtu HermannBODY FLUIDS 2018-03-22 17:00:0010[facility] NcwayqpPTWYUKUDXT0414-27-26 17:00:006.0[facility]am
== END 2020-05-23 13:30 | disposition home or self-care (01) | DRG 617 ==
LOC: MED/SURG2 14:56
PROVIDERS: ADMIT Internal Medicine; ATTEND Internal Medicine
PROC: 02HV33Z Insertion of Infusion Device into Superior Vena Cava, Percutaneous Approach (ICD-10-PCS; 2020-05-15)
PROC: 0Y6M0Z9 Detachment at Right Foot, Partial 1st Ray, Open Approach (ICD-10-PCS; principal; 2020-05-21 07:30)
DX: E11.69 Type 2 diabetes mellitus with other specified complication (principal); M86.8X7 Other osteomyelitis, ankle and foot; L97.414 Non-pressure chronic ulcer of right heel and midfoot with necrosis of bone; L03.115 Cellulitis of right lower limb; I12.9 Hypertensive chronic kidney disease with stage 1 through stage 4 chronic kidney disease, or unspecified chronic kidney disease; E11.22 Type 2 diabetes mellitus with diabetic chronic kidney disease; N18.3 Chronic kidney disease, stage 3 (moderate); L03.031 Cellulitis of right toe; E11.621 Type 2 diabetes mellitus with foot ulcer; E11.628 Type 2 diabetes mellitus with other skin complications; E11.65 Type 2 diabetes mellitus with hyperglycemia; Z79.4 Long term (current) use of insulin; I25.10 Atherosclerotic heart disease of native coronary artery without angina pectoris; D64.9 Anemia, unspecified; Z11.59 Encounter for screening for other viral diseases; G20 Parkinson's disease; E11.51 Type 2 diabetes mellitus with diabetic peripheral angiopathy without gangrene
CPT/HCPCS: 36415; 36569; 71045; 80053; 80202; 83735; 85025; 87040; 87071; 87075; 87186; 87205; 88304; 88305; 88311; 93005; 93922; 93926; 97139; J0360; J0696; J2001; J2405; J2543; J3370; J7050; U0002

== ENCOUNTER 2021-10-16 18:33 | Inpatient (IN) | payer MEDICARE, OTHER ==
[~2021-10-16] VITALS: Ht 188 cm; Wt 98.9 kg
[~2021-10-16 18:33] MED LIST changes: +CELEBREX100 MG PO; +LOSARTAN POTAS100 MG PO; +LYRICA100 MG PO; +NORVASC5 MG PO; +ULTRAM50 MG PO
[2021-10-16] MEDS ORDERED: ACETAMINOPHEN 325 MG TAB PO ONE (20:30)
[2021-10-16] MEDS ORDERED: ACETAMINOPHEN 325 MG TAB ONE (20:33)
[2021-10-16 21:26] LABS: BASOPHILS % 0.2 % (0.0-1.0); EOSINOPHILS # (AUTO) 0.1 (0.0-0.4); EOSINOPHILS % 0.8 % (0.0-6.0); HEMATOCRIT 28.2 % (38.2-49.6); HEMOGLOBIN 8.3 g/dL (14.0-18.0); LYMPHOCYTES # (AUTO) 0.2 (1.0-3.2); LYMPHOCYTES % 1.5 % (18.0-39.1); MEAN CORPUSCULAR HEMOGLOBIN 26.6 pg (28-32); MEAN CORPUSCULAR HGB CONC 29.4 g/dL (31-35); MEAN CORPUSCULAR VOLUME 90.4 fL (81-99); MONOCYTES # (AUTO) 0.7 (0.2-0.8); MONOCYTES % 4.4 % (4.4-11.3); NEUTROPHILS # (AUTO) 14.4 (2.1-6.9); NEUTROPHILS % 92.7 % (38.7-80.0); PLATELET COUNT 250 x10e3/uL (140-360); RED BLOOD COUNT 3.12 x10e6/uL (4.3-5.7); RED CELL DISTRIBUTION WIDTH 16.6 % (11.7-14.4)
[2021-10-16] MEDS: SODIUM CHLORIDE 0.9% 1000ML 1,000 ML IV SCH (21:30)
[2021-10-16] MEDS ORDERED: FENTANYL CITRATE/PF 100MCG/2 ML INJ IV ONE (21:30)
[2021-10-16] MEDS ORDERED: ONDANSETRON HCL INJ 2MG/ML 2ML 2 MG/ML VIAL ONE (21:34)
[2021-10-16] MEDS ORDERED: FENTANYL CITRATE/PF 100MCG/2 ML INJ ONE (21:34)
[2021-10-16 21:43] LABS: ALBUMIN 3.2 g/dL (3.5-5.0); ALBUMIN/GLOBULIN RATIO 0.8 (0.8-2.0); ANION GAP 14.5 mmol/L (8-16); POTASSIUM 5.5 mmol/L (3.5-5.1)
[2021-10-16 21:49] LABS: CREATINE KINASE MB 7.5 ng/mL (0-5.0)
[2021-10-16 21:50] LABS: INR 1.09
[2021-10-16 21:51] LABS: PARTIAL THROMBOPLASTIN TIME 38.9 seconds (23.8-35.5)
[2021-10-16 22:34] LABS: CLARITY,URINE CLOUDY (CLEAR); COLOR,URINE YELLOW (YELLOW); KETONES,URINE NEGATIVE (NEGATIVE); LEUKOCYTE ESTERASE ,URINE MODERATE (NEGATIVE); NITRITE,URINE NEGATIVE (NEGATIVE); PROTEIN,URINE DIPSTICK NEGATIVE (NEGATIVE)
[2021-10-16 22:35] LABS: URINE UROBILINOGEN 0.2 mg/dL (0.2 - 1)
[2021-10-16 22:46] LABS: BACTERIA,URINE MANY /HPF; EPITHELIAL CELLS,URINE FEW /LPF; RBC,URINE 0-5 /HPF (0-5); WBC,URINE (MAN) >50 /HPF (0-5)
[2021-10-16] MEDS ORDERED: SODIUM CHLORIDE 0.9% 1000ML 1,000 ML IV STA (22:56)
[2021-10-16] MEDS ORDERED: ONDANSETRON HCL INJ 2MG/ML 2ML 2 MG/ML VIAL IV STA (23:06)
[2021-10-17] VITALS (8 sets, daily range): BP systolic 108–137; BP diastolic 57–76
[2021-10-17] MEDS: HYDROMORPHONE 1MG/1ML INJ IV PRN ×3 (03:23→22:40)
[2021-10-17] MEDS: ONDANSETRON HCL INJ 2MG/ML 2ML 2 MG/ML VIAL IV PRN (03:24)
[2021-10-17] MEDS ORDERED: ACETAMINOPHEN 325 MG TAB PO PRN (05:30)
[2021-10-17] MEDS: CEFTRIAXONE 1 GM in SODIUM CHLORIDE 0.9% 50ML 50 ML IV SCH (05:30)
[2021-10-17] MEDS: SODIUM CHLORIDE 0.9% 1000ML 1,000 ML IV SCH ×3 (05:31→21:41)
[2021-10-17] MEDS: CARBIDOPA/LEVODOPA 25/100 TAB PO SCH ×3 (06:00→18:14)
[2021-10-17 07:42] LABS: BASOPHILS % 0.4 % (0.0-1.0); EOSINOPHILS # (AUTO) 0.5 (0.0-0.4); EOSINOPHILS % 5.4 % (0.0-6.0); HEMOGLOBIN 7.1 g/dL (14.0-18.0); LYMPHOCYTES # (AUTO) 0.5 (1.0-3.2); LYMPHOCYTES % 5.1 % (18.0-39.1); MEAN CORPUSCULAR HEMOGLOBIN 26.6 pg (28-32); MEAN CORPUSCULAR HGB CONC 29.6 g/dL (31-35); MEAN CORPUSCULAR VOLUME 89.9 fL (81-99); MONOCYTES # (AUTO) 0.4 (0.2-0.8); MONOCYTES % 4.2 % (4.4-11.3); NEUTROPHILS # (AUTO) 7.6 (2.1-6.9); NEUTROPHILS % 84.6 % (38.7-80.0); PLATELET COUNT 204 x10e3/uL (140-360); RED BLOOD COUNT 2.67 x10e6/uL (4.3-5.7); RED CELL DISTRIBUTION WIDTH 16.5 % (11.7-14.4)
[2021-10-17 08:03] LABS: ANION GAP 12.2 mmol/L (8-16); CALCIUM 8.2 mg/dL (8.4-10.2); CREATININE, SERUM 1.63 mg/dL (0.72-1.25); POTASSIUM 5.2 mmol/L (3.5-5.1)
[2021-10-17] MEDS: AMLODIPINE BESYLATE 5 MG TAB PO SCH (10:24)
[2021-10-17] MEDS: PRAMIPEXOLE DIHYDROCHLORIDE 1 MG TAB PO SCH ×3 (10:24→21:41)
[2021-10-17] MEDS: OYST-CAL-D 500MG TABLET PO SCH ×3 (10:25→21:41)
[2021-10-17] MEDS: FAMOTIDINE 20 MG TAB PO SCH (10:26)
[2021-10-17] MEDS: METOPROLOL SUCCINATE 50 MG TAB XL PO SCH (21:41)
[2021-10-18] VITALS (8 sets, daily range): BP systolic 96–141; BP diastolic 48–65
[2021-10-18] MEDS: CARBIDOPA/LEVODOPA 25/100 TAB PO SCH ×4 (00:23→17:07)
[2021-10-18] MEDS: CEFTRIAXONE 1 GM in SODIUM CHLORIDE 0.9% 50ML 50 ML IV SCH (05:59)
[2021-10-18] MEDS: SODIUM CHLORIDE 0.9% 1000ML 1,000 ML IV SCH ×3 (05:59→21:36)
[2021-10-18] MEDS: OYST-CAL-D 500MG TABLET PO SCH ×3 (07:57→21:36)
[2021-10-18] MEDS: PRAMIPEXOLE DIHYDROCHLORIDE 1 MG TAB PO SCH ×3 (07:57→21:36)
[2021-10-18] MEDS: FAMOTIDINE 20 MG TAB PO SCH (07:57)
[2021-10-18] MEDS: AMLODIPINE BESYLATE 5 MG TAB PO SCH (08:12)
[2021-10-18 08:21] LABS: BASOPHILS # (AUTO) 0.1 (0.0-0.1); BASOPHILS % 0.6 % (0.0-1.0); EOSINOPHILS # (AUTO) 0.5 (0.0-0.4); EOSINOPHILS % 6.5 % (0.0-6.0); HEMATOCRIT 23.8 % (38.2-49.6); HEMOGLOBIN 7.3 g/dL (14.0-18.0); LYMPHOCYTES # (AUTO) 0.4 (1.0-3.2); LYMPHOCYTES % 4.2 % (18.0-39.1); MEAN CORPUSCULAR HEMOGLOBIN 26.8 pg (28-32); MEAN CORPUSCULAR HGB CONC 30.7 g/dL (31-35); MEAN CORPUSCULAR VOLUME 87.5 fL (81-99); MONOCYTES # (AUTO) 0.5 (0.2-0.8); MONOCYTES % 5.9 % (4.4-11.3); NEUTROPHILS # (AUTO) 6.9 (2.1-6.9); NEUTROPHILS % 82.6 % (38.7-80.0); PLATELET COUNT 192 x10e3/uL (140-360); RED BLOOD COUNT 2.72 x10e6/uL (4.3-5.7); RED CELL DISTRIBUTION WIDTH 16.8 % (11.7-14.4)
[2021-10-18 08:39] LABS: ANION GAP 10.9 mmol/L (8-16); CALCIUM 8.5 mg/dL (8.4-10.2); CREATININE, SERUM 1.5 mg/dL (0.72-1.25); POTASSIUM 4.9 mmol/L (3.5-5.1)
[2021-10-18] MEDS: HYDROMORPHONE 1MG/1ML INJ IV PRN (09:17)
[2021-10-18 14:43] LABS: FERRITIN 136.25 ng/mL (21.81-274.66)
[2021-10-18] MEDS ORDERED: SODIUM CHLORIDE 0.9% 250ML 250 ML IV NR (15:00)
[2021-10-18] MEDS: METOPROLOL SUCCINATE 50 MG TAB XL PO SCH (21:36)
[2021-10-19] VITALS: BP 138/63
[2021-10-19] MEDS: CARBIDOPA/LEVODOPA 25/100 TAB PO SCH ×4 (00:22→17:38)
[2021-10-19] MEDS: HYDROMORPHONE 1MG/1ML INJ IV PRN ×2 (01:00→12:00)
[2021-10-19] MEDS: ONDANSETRON HCL INJ 2MG/ML 2ML 2 MG/ML VIAL IV PRN (01:00)
[2021-10-19] MEDS ORDERED: SODIUM CHLORIDE 0.9% 250ML 250 ML ONE (03:05)
[2021-10-19 04:39] VITALS: BP 147/77
[2021-10-19] MEDS: SODIUM CHLORIDE 0.9% 1000ML 1,000 ML IV SCH ×2 (05:36→17:37)
[2021-10-19] MEDS: CEFTRIAXONE 1 GM in SODIUM CHLORIDE 0.9% 50ML 50 ML IV SCH (05:36)
[2021-10-19 08:00] VITALS: BP 132/70
[2021-10-19] MEDS: MEROPENEM 500 MG in SODIUM CHLORIDE 0.9% 50ML 50 ML IV SCH ×2 (08:46→17:37)
[2021-10-19] MEDS: PRAMIPEXOLE DIHYDROCHLORIDE 1 MG TAB PO SCH ×3 (09:00→22:16)
[2021-10-19] MEDS: AMLODIPINE BESYLATE 5 MG TAB PO SCH (09:00)
[2021-10-19] MEDS: FAMOTIDINE 20 MG TAB PO SCH (09:00)
[2021-10-19] MEDS: OYST-CAL-D 500MG TABLET PO SCH ×3 (09:00→21:50)
[2021-10-19 09:08] LABS: HEMATOCRIT 25.3 % (38.2-49.6); HEMOGLOBIN 7.9 g/dL (14.0-18.0)
[2021-10-19 11:25] VITALS: BP 147/69
[2021-10-19] MEDS: SODIUM FERRIC GLUCONATE COMPLX 125 MG in SODIUM CHLORIDE 0.9% 100 ML 100 ML IV SCH (12:04)
[2021-10-19] MEDS ORDERED: FENTANYL CITRATE/PF 100MCG/2 ML INJ ONE (12:30)
[2021-10-19] MEDS ORDERED: HYDROMORPHONE 0.2MG/ML-SOD CHL 30ML PCA SYRINGE IV PRN (14:45)
[2021-10-19] MEDS ORDERED: ONDANSETRON HCL INJ 2MG/ML 2ML 2 MG/ML VIAL IV PRN (14:45)
[2021-10-19] MEDS ORDERED: NALOXONE HCL INJ 0.4 MG/ML AMP IV PRN (14:45)
[2021-10-19] MEDS ORDERED: ALBUTEROL SULF 0.083% NEB SOLN 3 ML NEB ONE (15:24)
[2021-10-19] MEDS: FENTANYL CITRATE/PF 100MCG/2 ML INJ ONE (15:35)
[2021-10-19] MEDS ORDERED: HYDROMORPHONE 0.2MG/ML-SOD CHL 30ML PCA SYRINGE IV ONE (16:00)
[2021-10-19 16:18] VITALS: BP 120/70
[2021-10-19] MEDS ORDERED: ACETAMINOPHEN 1000 MG/100 ML IV PRN (18:00)
[2021-10-19] MEDS ORDERED: ONDANSETRON HCL INJ 2MG/ML 2ML 2 MG/ML VIAL ONE (19:28)
[2021-10-19] MEDS ORDERED: PROPOFOL IV EMULSION 10 MG/ML 20 ML VIAL ONE (19:28)
[2021-10-19] MEDS ORDERED: DEXAMETHASONE SOD PHOS INJ 4 MG/ML SDV ONE (19:28)
[2021-10-19] MEDS ORDERED: NEOSTIGMINE 1 MG/ML 10ML VIAL ONE (19:28)
[2021-10-19] MEDS ORDERED: ROCURONIUM BROMIDE 10 MG/ML 5ML VIAL IV ONE (19:28)
[2021-10-19] MEDS ORDERED: LIDOCAINE HCL 2% LOCAL INJ 5 ML SDV VIAL INJ ONE (19:28)
[2021-10-19] MEDS ORDERED: POVIDONE IODINE 0.05% 0.05 % ML PO ONE (19:28)
[2021-10-19] MEDS ORDERED: GLYCOPYRROLATE INJ 0.2 MG/ML VIAL ONE (19:28)
[2021-10-19] MEDS ORDERED: SEVOFLURANE INHAL SOLN 250 ML PEN BTL ONE (19:28)
[2021-10-19 20:00] VITALS: BP 127/85
[2021-10-19] MEDS: METOPROLOL SUCCINATE 50 MG TAB XL PO SCH (21:51)
[2021-10-19] MEDS: Cefazolin 1 GM in SODIUM CHLORIDE 0.9% 50ML 50 ML IV SCH (22:10)
[2021-10-20] VITALS (8 sets, daily range): BP systolic 142–179; BP diastolic 74–93
[2021-10-20] MEDS: SODIUM CHLORIDE 0.9% 1000ML 1,000 ML IV SCH ×3 (02:59→21:27)
[2021-10-20 05:04] LABS: HEMATOCRIT 26.9 % (38.2-49.6); HEMOGLOBIN 8.3 g/dL (14.0-18.0)
[2021-10-20] MEDS: Cefazolin 1 GM in SODIUM CHLORIDE 0.9% 50ML 50 ML IV SCH ×2 (05:41→14:54)
[2021-10-20] MEDS: CARBIDOPA/LEVODOPA 25/100 TAB PO SCH ×5 (05:41→23:40)
[2021-10-20] MEDS ORDERED: FINASTERIDE5 MG PO (07:43)
[2021-10-20] MEDS ORDERED: VITAMIN B-121000 MC2 PO (07:43)
[2021-10-20] MEDS ORDERED: PANTOPRAZOLE SO40 MG PO (07:43)
[2021-10-20] MEDS ORDERED: ATORVASTATIN CA20 MG PO (07:43)
[2021-10-20] MEDS ORDERED: PRAMIPEXOLE D0.25 MG PO (07:43)
[2021-10-20] MEDS ORDERED: FLOMAX0.4 MG PO (07:43)
[2021-10-20] MEDS ORDERED: MIDODRINE HCL2.5 MG PO (07:43)
[2021-10-20] MEDS ORDERED: OXYBUTYNIN CHLOR5 MG PO (07:43)
[2021-10-20] MEDS: MEROPENEM 500 MG in SODIUM CHLORIDE 0.9% 50ML 50 ML IV SCH ×5 (09:03→23:40)
[2021-10-20] MEDS: AMLODIPINE BESYLATE 5 MG TAB PO SCH (09:05)
[2021-10-20] MEDS: SODIUM FERRIC GLUCONATE COMPLX 125 MG in SODIUM CHLORIDE 0.9% 100 ML 100 ML IV SCH (09:05)
[2021-10-20] MEDS: FAMOTIDINE 20 MG TAB PO SCH (09:05)
[2021-10-20] MEDS: RIVAROXABAN 10 MG TABLET PO SCH (09:05)
[2021-10-20] MEDS: OYST-CAL-D 500MG TABLET PO SCH ×3 (09:05→21:27)
[2021-10-20] MEDS: PRAMIPEXOLE DIHYDROCHLORIDE 1 MG TAB PO SCH ×3 (09:05→21:27)
[2021-10-20 09:40] LABS: ANION GAP 12.4 mmol/L (8-16); CALCIUM 8.7 mg/dL (8.4-10.2); CREATININE, SERUM 1.67 mg/dL (0.72-1.25); POTASSIUM 5.4 mmol/L (3.5-5.1)
[2021-10-20] MEDS ORDERED: BALSAM PERU/CASTOR OIL 60 GM OINT...G. TP SCH (14:00)
[2021-10-20] MEDS: HYDROCODONE/APAP 5MG-325MG TAB PO PRN ×2 (19:25→23:40)
[2021-10-20] MEDS: METOPROLOL SUCCINATE 50 MG TAB XL PO SCH (21:28)
[2021-10-21] VITALS: BP 167/73
[2021-10-21 04:00] VITALS: BP 157/76
[2021-10-21] MEDS: CARBIDOPA/LEVODOPA 25/100 TAB PO SCH ×2 (05:33→11:56)
[2021-10-21 06:16] LABS: HEMATOCRIT 25.9 % (38.2-49.6); HEMOGLOBIN 7.9 g/dL (14.0-18.0)
[2021-10-21 07:55] VITALS: BP 172/80
[2021-10-21 07:57] VITALS: BP 172/80
[2021-10-21] MEDS: MEROPENEM 500 MG in SODIUM CHLORIDE 0.9% 50ML 50 ML IV SCH (08:40)
[2021-10-21] MEDS: RIVAROXABAN 10 MG TABLET PO SCH (08:40)
[2021-10-21] MEDS: FAMOTIDINE 20 MG TAB PO SCH (09:48)
[2021-10-21] MEDS: PRAMIPEXOLE DIHYDROCHLORIDE 1 MG TAB PO SCH (09:48)
[2021-10-21] MEDS: OYST-CAL-D 500MG TABLET PO SCH (09:48)
[2021-10-21] MEDS: AMLODIPINE BESYLATE 5 MG TAB PO SCH (09:48)
[2021-10-21] MEDS: SODIUM CHLORIDE 0.9% 1000ML 1,000 ML IV SCH (10:00)
[2021-10-21] MEDS: SODIUM FERRIC GLUCONATE COMPLX 125 MG in SODIUM CHLORIDE 0.9% 100 ML 100 ML IV SCH (10:45)
[2021-10-21 11:36] VITALS: BP 172/64
[2021-10-21] MEDS ORDERED: ONDANSETRON HCL 4 MG ORAL DISINTEGRATING TAB PO PRN (12:30)
== END 2021-10-21 16:18 | DRG 481 ==
LOC: ER 18:45 → ERHOLD 21:34 → MED/SURG 10-17 00:17 → MED/SURG3 10-19 14:51
PROVIDERS: ADMIT Internal Medicine; ATTEND Internal Medicine
PROC: 30243N1 Transfusion of Nonautologous Red Blood Cells into Central Vein, Percutaneous Approach (ICD-10-PCS; 2021-10-19)
PROC: 0QS834Z Reposition Right Femoral Shaft with Internal Fixation Device, Percutaneous Approach (ICD-10-PCS; principal; 2021-10-19 13:30)
PROC: 02HV33Z Insertion of Infusion Device into Superior Vena Cava, Percutaneous Approach (ICD-10-PCS; 2021-10-20)
DX: S72.011A Unspecified intracapsular fracture of right femur, initial encounter for closed fracture (principal); N17.9 Acute kidney failure, unspecified; G61.81 Chronic inflammatory demyelinating polyneuritis; N39.0 Urinary tract infection, site not specified; G20 Parkinson's disease; Z96.651 Presence of right artificial knee joint; I12.9 Hypertensive chronic kidney disease with stage 1 through stage 4 chronic kidney disease, or unspecified chronic kidney disease; N18.30 Chronic kidney disease, stage 3 unspecified; D50.9 Iron deficiency anemia, unspecified; W19.XXXA Unspecified fall, initial encounter; Z91.81 History of falling; Z74.09 Other reduced mobility; E87.5 Hyperkalemia; I25.10 Atherosclerotic heart disease of native coronary artery without angina pectoris
CPT/HCPCS: 36415; 36569; 71045; 72192; 76000; 80048; 80053; 81001; 82550; 82553; 82607; 82728; 83540; 83880; 84132; 84466; 84484; 85014; 85018; 85025; 85610; 85730; 86850; 86900; 86920; 87086; 87186; 93005; 94799; 97139; 99251; 99284; C1713; C1769; J0690; J0696; J1100; J1170; J2001; J2185; J2405; J2710; J2916; J3010; J7030; J7050; P9016; U0002

== ENCOUNTER 2021-11-02 17:48 | Inpatient (IN) | payer MEDICARE, OTHER ==
[~2021-11-02] VITALS: Ht 188 cm; Wt 98.9 kg
[~2021-11-02 17:48] MED LIST changes: +ATORVASTATIN CA20 MG PO; +FINASTERIDE5 MG PO; +FLOMAX0.4 MG PO; +MIDODRINE HCL2.5 MG PO; +OXYBUTYNIN CHLOR5 MG PO; +PANTOPRAZOLE SO40 MG PO; +VITAMIN B-121000 MC2 PO
[2021-11-02 18:26] LABS: ANION GAP 11.6 mmol/L (8-16); CALCIUM 9.4 mg/dL (8.4-10.2); CREATININE, SERUM 5.58 mg/dL (0.72-1.25)
[2021-11-02 18:30] LABS: POTASSIUM 6.6 mmol/L (3.5-5.1)
[2021-11-02] MEDS ORDERED: INSULIN REGULAR, HUMAN 100 UNIT/1 ML IV ONE (18:30)
[2021-11-02] MEDS ORDERED: DEXTROSE 50% SYRINGE 50 ML IV ONE (18:30)
[2021-11-02] MEDS ORDERED: SODIUM BICARBONATE 8.4% INJ 50 ML SYR IV STA (18:30)
[2021-11-02] MEDS ORDERED: SOD POLYSTYRENE SULFONATE SUSP 15 GM/60 ML BTL PO ONE (18:45)
[2021-11-02 18:46] LABS: BASOPHILS # (AUTO) 0.1 (0.0-0.1); BASOPHILS % 0.8 % (0.0-1.0); EOSINOPHILS # (AUTO) 0.5 (0.0-0.4); EOSINOPHILS % 6.3 % (0.0-6.0); HEMATOCRIT 25.9 % (38.2-49.6); HEMOGLOBIN 7.6 g/dL (14.0-18.0); LYMPHOCYTES # (AUTO) 0.6 (1.0-3.2); LYMPHOCYTES % 7.8 % (18.0-39.1); MEAN CORPUSCULAR HEMOGLOBIN 26.4 pg (28-32); MEAN CORPUSCULAR HGB CONC 29.3 g/dL (31-35); MEAN CORPUSCULAR VOLUME 89.9 fL (81-99); MONOCYTES # (AUTO) 0.6 (0.2-0.8); MONOCYTES % 7.9 % (4.4-11.3); NEUTROPHILS # (AUTO) 5.7 (2.1-6.9); NEUTROPHILS % 76.7 % (38.7-80.0); PLATELET COUNT 384 x10e3/uL (140-360); RED BLOOD COUNT 2.88 x10e6/uL (4.3-5.7); RED CELL DISTRIBUTION WIDTH 16.1 % (11.7-14.4)
[2021-11-02 19:02] LABS: CREATINE KINASE MB 6.3 ng/mL (0-5.0)
[2021-11-02] MEDS ORDERED: CALCIUM GLUCONATE 10% INJ 0.465 MEQ/ML VIAL ONE (19:06)
[2021-11-02] MEDS ORDERED: CALCIUM GLUCONATE 10% INJ 13.95 MEQ in SODIUM CHLORIDE 0.9% 100 ML 100 ML IV ONE (19:15)
[2021-11-02 19:16] LABS: CLARITY,URINE CLEAR (CLEAR); COLOR,URINE AMBER (YELLOW); KETONES,URINE NEGATIVE (NEGATIVE); LEUKOCYTE ESTERASE ,URINE TRACE (NEGATIVE); NITRITE,URINE NEGATIVE (NEGATIVE); PROTEIN,URINE DIPSTICK 1+ (NEGATIVE); URINE UROBILINOGEN 0.2 mg/dL (0.2 - 1)
[2021-11-02 19:21] LABS: BACTERIA,URINE FEW /HPF; WBC,URINE (MAN) 21-50 /HPF (0-5)
[2021-11-02] MEDS: CEFTRIAXONE 1 GM in SODIUM CHLORIDE 0.9% 50ML 50 ML IV SCH (19:45)
[2021-11-02] MEDS ORDERED: SODIUM CHLORIDE 0.9% 1000ML 1,000 ML IV SCH (20:45)
[2021-11-02] MEDS ORDERED: ONDANSETRON HCL INJ 2MG/ML 2ML 2 MG/ML VIAL IV PRN ×2 (20:45→21:00)
[2021-11-02] MEDS: SODIUM CHLORIDE 0.9% 1000ML 1,000 ML IV SCH (21:00)
[2021-11-02] MEDS ORDERED: SODIUM CHLORIDE 0.9% 50ML 50 ML ONE (21:41)
[2021-11-02] MEDS ORDERED: CEFTRIAXONE 1 GM VIAL ONE (21:41)
[2021-11-02] MEDS ORDERED: ACETAMINOPHEN 325 MG TAB PO ONE (22:15)
[2021-11-03] VITALS (9 sets, daily range): BP systolic 123–161; BP diastolic 65–84
[2021-11-03 08:07] LABS: BASOPHILS # (AUTO) 0.1 (0.0-0.1); BASOPHILS % 1.2 % (0.0-1.0); EOSINOPHILS # (AUTO) 0.4 (0.0-0.4); EOSINOPHILS % 6.3 % (0.0-6.0); HEMOGLOBIN 7.8 g/dL (14.0-18.0); LYMPHOCYTES # (AUTO) 0.6 (1.0-3.2); LYMPHOCYTES % 9.2 % (18.0-39.1); MEAN CORPUSCULAR HEMOGLOBIN 26.7 pg (28-32); MONOCYTES # (AUTO) 0.5 (0.2-0.8); MONOCYTES % 7.9 % (4.4-11.3); NEUTROPHILS # (AUTO) 5.1 (2.1-6.9); PLATELET COUNT 370 x10e3/uL (140-360); RED BLOOD COUNT 2.92 x10e6/uL (4.3-5.7); RED CELL DISTRIBUTION WIDTH 15.8 % (11.7-14.4)
[2021-11-03 08:50] LABS: ANION GAP 11.7 mmol/L (8-16); CALCIUM 9.5 mg/dL (8.4-10.2); CREATININE, SERUM 3.76 mg/dL (0.72-1.25); MAGNESIUM 2.2 MG/DL (1.3-2.1); PHOSPHORUS 4.5 MG/DL (2.3-4.7); POTASSIUM 5.7 mmol/L (3.5-5.1)
[2021-11-03 09:10] LABS: FERRITIN 485.44 ng/mL (21.81-274.66)
[2021-11-03] MEDS: SODIUM CHLORIDE 0.9% 1000ML 1,000 ML IV SCH (09:28)
[2021-11-03] MEDS: CEFTRIAXONE 1 GM in SODIUM CHLORIDE 0.9% 50ML 50 ML IV SCH (09:28)
[2021-11-03] MEDS ORDERED: SODIUM CHLORIDE 0.9% 1000ML 1,000 ML IV STA (09:44)
[2021-11-03] MEDS ORDERED: DOXYCYCLINE HY100 MG PO (09:46)
[2021-11-03] MEDS ORDERED: DOXYCYCLINE HYCLATE 100 MG in SODIUM CHLORIDE 0.9% 100 ML IV SCH (10:00)
[2021-11-03] MEDS ORDERED: SOD POLYSTYRENE SULFONATE SUSP 15 GM/60 ML BTL PO ONE (10:20)
[2021-11-03] MEDS ORDERED: SODIUM CHLORIDE 0.45% 1,000 ML IV ONE (10:30)
[2021-11-03] MEDS ORDERED: BALSAM PERU/CASTOR OIL 60 GM OINT...G. TP SCH (14:00)
[2021-11-03 14:56] LABS: ANION GAP 10.8 mmol/L (8-16); CALCIUM 8.7 mg/dL (8.4-10.2); CREATININE, SERUM 3.35 mg/dL (0.72-1.25); POTASSIUM 4.8 mmol/L (3.5-5.1)
[2021-11-03] MEDS ORDERED: FERROUS SULFATE 325 MG TAB PO SCH (17:00)
== END 2021-11-03 22:30 | DRG 641 ==
LOC: ER 17:58 → UNDOADMOB 20:41 → ERHOLD 20:41 → ER 20:46 → MED/SURG 11-03 01:29 → OBSVTOIN 11-03 08:48
PROVIDERS: ADMIT Internal Medicine; ATTEND Internal Medicine
PROC: 02HV33Z Insertion of Infusion Device into Superior Vena Cava, Percutaneous Approach (ICD-10-PCS; principal; 2021-11-03)
DX: E87.5 Hyperkalemia (principal); N17.9 Acute kidney failure, unspecified; L03.119 Cellulitis of unspecified part of limb; N39.0 Urinary tract infection, site not specified; Z16.12 Extended spectrum beta lactamase (ESBL) resistance; G61.81 Chronic inflammatory demyelinating polyneuritis; N13.8 Other obstructive and reflux uropathy; R33.9 Retention of urine, unspecified; I12.9 Hypertensive chronic kidney disease with stage 1 through stage 4 chronic kidney disease, or unspecified chronic kidney disease; N18.30 Chronic kidney disease, stage 3 unspecified; B96.1 Klebsiella pneumoniae [K. pneumoniae] as the cause of diseases classified elsewhere; G20 Parkinson's disease; R26.9 Unspecified abnormalities of gait and mobility; N40.1 Benign prostatic hyperplasia with lower urinary tract symptoms; Z20.822 Contact with and (suspected) exposure to COVID-19; E11.42 Type 2 diabetes mellitus with diabetic polyneuropathy; Z79.899 Other long term (current) drug therapy
CPT/HCPCS: 36415; 36556; 51700; 71045; 74470; 76937; 77001; 80048; 81001; 82550; 82553; 82607; 82728; 83540; 83735; 83880; 84100; 84466; 84484; 85025; 87086; 93005; 94799; 99251; 99285; C1769; G0378; J0610; J0696; J1817; J7030; J7050; J7799; U0002

== ENCOUNTER 2021-11-29 16:36 | Inpatient (IN) | payer MEDICARE, OTHER ==
[~2021-11-29] VITALS: Ht 188 cm; Wt 99.9 kg
[~2021-11-29 16:36] MED LIST changes: +DOXYCYCLINE HY100 MG PO
[2021-11-29] MEDS ORDERED: SODIUM CHLORIDE 0.9% 1000ML 1,000 ML IV ONE (17:15)
[2021-11-29] MEDS ORDERED: ACETAMINOPHEN 325 MG TAB PO ONE (17:15)
[2021-11-29] MEDS ORDERED: CEFEPIME 1 GM in SODIUM CHLORIDE 0.9% 50ML 50 ML IV ONE (17:15)
[2021-11-29 17:27] LABS: BASOPHILS % 0.2 % (0.0-1.0); EOSINOPHILS % 0.1 % (0.0-6.0); HEMATOCRIT 26.7 % (38.2-49.6); LYMPHOCYTES # (AUTO) 0.2 (1.0-3.2); LYMPHOCYTES % 1.4 % (18.0-39.1); MEAN CORPUSCULAR HEMOGLOBIN 27.9 pg (28-32); MONOCYTES # (AUTO) 0.5 (0.2-0.8); MONOCYTES % 3.7 % (4.4-11.3); NEUTROPHILS # (AUTO) 12.5 (2.1-6.9); PLATELET COUNT 177 x10e3/uL (140-360); RED BLOOD COUNT 2.87 x10e6/uL (4.3-5.7); RED CELL DISTRIBUTION WIDTH 19.1 % (11.7-14.4)
[2021-11-29 17:40] LABS: ALBUMIN 2.8 g/dL (3.5-5.0); ALBUMIN/GLOBULIN RATIO 0.7 (0.8-2.0); ANION GAP 16.3 mmol/L (8-16); CREATININE, SERUM 4.23 mg/dL (0.72-1.25); POTASSIUM 5.3 mmol/L (3.5-5.1)
[2021-11-29 18:10] LABS: CLARITY,URINE CLOUDY (CLEAR); COLOR,URINE YELLOW (YELLOW); LEUKOCYTE ESTERASE ,URINE 2+ (NEGATIVE)
[2021-11-29 18:11] LABS: NITRITE,URINE NEGATIVE (NEGATIVE); PROTEIN,URINE DIPSTICK 2+ (NEGATIVE); URINE UROBILINOGEN 0.2 mg/dL (0.2 - 1)
[2021-11-29 18:13] LABS: KETONES,URINE NEGATIVE (NEGATIVE)
[2021-11-29 18:28] LABS: BACTERIA,URINE MANY /HPF; EPITHELIAL CELLS,URINE FEW /LPF; WBC,URINE (MAN) >50 /HPF (0-5)
[2021-11-29 18:29] LABS: AMORPHOUS SEDIMENT,URINE MANY (FEW)
[2021-11-29 18:48] LABS: CREATINE KINASE MB 8.2 ng/mL (0-5.0)
[2021-11-29] MEDS ORDERED: ONDANSETRON HCL INJ 2MG/ML 2ML 2 MG/ML VIAL IV PRN (19:00)
[2021-11-29 20:46] VITALS: BP 105/57
[2021-11-29] MEDS: SODIUM CHLORIDE 0.9% 1000ML 1,000 ML IV SCH (20:58)
[2021-11-29 22:06] VITALS: BP 105/57
[2021-11-30] VITALS (7 sets, daily range): BP systolic 99–134; BP diastolic 52–82
[2021-11-30] MEDS: SODIUM CHLORIDE 0.9% 1000ML 1,000 ML IV SCH ×3 (03:00→18:05)
[2021-11-30] MEDS: ACETAMINOPHEN 325 MG TAB PO PRN ×2 (03:05→23:50)
[2021-11-30] MEDS ORDERED: MULTIVITAMINS1 EAC6 PO (04:31)
[2021-11-30] MEDS ORDERED: FERROUS SULFAT325 MG PO (04:31)
[2021-11-30 06:10] LABS: BASOPHILS % 0.2 % (0.0-1.0); EOSINOPHILS % 0.2 % (0.0-6.0); HEMATOCRIT 23.6 % (38.2-49.6); LYMPHOCYTES # (AUTO) 0.2 (1.0-3.2); LYMPHOCYTES % 1.4 % (18.0-39.1); MEAN CORPUSCULAR HEMOGLOBIN 28.5 pg (28-32); MEAN CORPUSCULAR HGB CONC 29.7 g/dL (31-35); MEAN CORPUSCULAR VOLUME 95.9 fL (81-99); MONOCYTES # (AUTO) 0.7 (0.2-0.8); MONOCYTES % 5.7 % (4.4-11.3); NEUTROPHILS # (AUTO) 11.5 (2.1-6.9); NEUTROPHILS % 91.6 % (38.7-80.0); PLATELET COUNT 140 x10e3/uL (140-360); RED BLOOD COUNT 2.46 x10e6/uL (4.3-5.7); RED CELL DISTRIBUTION WIDTH 19.2 % (11.7-14.4)
[2021-11-30 06:50] LABS: ALBUMIN 2.3 g/dL (3.5-5.0); ALBUMIN/GLOBULIN RATIO 0.7 (0.8-2.0); ANION GAP 17.7 mmol/L (8-16); CALCIUM 8.8 mg/dL (8.4-10.2); CREATININE, SERUM 4.13 mg/dL (0.72-1.25); POTASSIUM 4.7 mmol/L (3.5-5.1)
[2021-11-30] MEDS: PANTOPRAZOLE SOD 40 MG TABEC PO SCH ×2 (07:30→16:30)
[2021-11-30 07:47] LABS: FERRITIN 559.01 ng/mL (21.81-274.66)
[2021-11-30] MEDS: MEROPENEM 500 MG in SODIUM CHLORIDE 0.9% 50ML 50 ML IV SCH ×2 (08:00→20:30)
[2021-11-30 08:13] LABS: BAND NEUTROPHILS % (MANUAL) 8 %; LYMPHOCYTES % (MANUAL) 2 % (19-48); MONOCYTES % (MANUAL) 6 % (3.4-9.0); NEUTROPHILS % (MANUAL) 84 % (40-74)
[2021-11-30 08:14] LABS: ANISOCYTOSIS MODERATE; HYPOCHROMASIA SLIGHT; OVALOCYTES FEW; PLATELET ESTIMATE SLIGHTLY DECREASED; PLATELET MORPHOLOGY COMMENT NORMAL; RBC MORPHOLOGY COMMENT ABNORMAL
[2021-11-30] MEDS: AMLODIPINE BESYLATE 5 MG TAB PO SCH (09:00)
[2021-11-30] MEDS: CYANOCOBALAMIN 1,000 MCG TAB PO SCH (09:00)
[2021-11-30] MEDS: FINASTERIDE 5 MG TAB PO SCH (09:00)
[2021-11-30] MEDS: FERROUS SULFATE 325 MG TAB PO SCH ×2 (09:00→17:00)
[2021-11-30] MEDS: PRAMIPEXOLE DIHYDROCHLORIDE 0.25 MG TAB PO SCH ×3 (09:00→20:30)
[2021-11-30] MEDS: TAMSULOSIN HCL 0.4 MG CAP PO SCH (09:00)
[2021-11-30] MEDS: CARBIDOPA/LEVODOPA 25/100 TAB PO SCH ×3 (12:00→23:50)
[2021-11-30 16:24] LABS: HEMATOCRIT 23.6 % (38.2-49.6)
[2021-11-30 16:39] LABS: ANION GAP 12.8 mmol/L (8-16); CALCIUM 8.6 mg/dL (8.4-10.2); CREATININE, SERUM 4.15 mg/dL (0.72-1.25); POTASSIUM 4.8 mmol/L (3.5-5.1)
[2021-11-30] MEDS: METOPROLOL SUCCINATE 50 MG TAB XL PO SCH (20:30)
[2021-11-30] MEDS: ATORVASTATIN 20 MG TAB PO SCH (20:30)
[2021-12-01] VITALS: BP 133/106
[2021-12-01 04:00] VITALS: BP 133/61
[2021-12-01] MEDS: CARBIDOPA/LEVODOPA 25/100 TAB PO SCH ×3 (06:30→17:17)
[2021-12-01 08:10] LABS: BASOPHILS % 0.3 % (0.0-1.0); EOSINOPHILS # (AUTO) 0.2 (0.0-0.4); EOSINOPHILS % 1.7 % (0.0-6.0); HEMATOCRIT 21.5 % (38.2-49.6); LYMPHOCYTES # (AUTO) 0.2 (1.0-3.2); LYMPHOCYTES % 1.6 % (18.0-39.1); MEAN CORPUSCULAR HEMOGLOBIN 28.1 pg (28-32); MEAN CORPUSCULAR HGB CONC 29.3 g/dL (31-35); MONOCYTES # (AUTO) 0.5 (0.2-0.8); MONOCYTES % 4.8 % (4.4-11.3); NEUTROPHILS # (AUTO) 9.6 (2.1-6.9); NEUTROPHILS % 90.8 % (38.7-80.0); PLATELET COUNT 142 x10e3/uL (140-360); RED BLOOD COUNT 2.24 x10e6/uL (4.3-5.7); RED CELL DISTRIBUTION WIDTH 19.1 % (11.7-14.4)
[2021-12-01] MEDS: PANTOPRAZOLE SOD 40 MG TABEC PO SCH ×2 (08:30→17:17)
[2021-12-01 08:43] LABS: BAND NEUTROPHILS % (MANUAL) 1 %; EOSINOPHILS % (MANUAL) 2 % (0-7); HYPOCHROMASIA SLIGHT; METAMYELOCYTES % (MANUAL) 1 % (0-0); MONOCYTES % (MANUAL) 2 % (3.4-9.0); NEUTROPHILS % (MANUAL) 93 % (40-74); PLATELET ESTIMATE ADEQUATE; PLATELET MORPHOLOGY COMMENT FEW LARGE; RBC MORPHOLOGY COMMENT ABNORMAL
[2021-12-01 08:44] LABS: ANISOCYTOSIS MODE; BURR CELLS SLIGHT; ELLIPTOCYTE, RBC SLIGHT; MICROCYTOSIS SLIG; POIKILOCYTOSIS MODERATE
[2021-12-01 08:47] LABS: ANION GAP 14.3 mmol/L (8-16); CALCIUM 8.6 mg/dL (8.4-10.2); CREATININE, SERUM 4.07 mg/dL (0.72-1.25); POTASSIUM 4.3 mmol/L (3.5-5.1)
[2021-12-01 08:48] LABS: HEMOGLOBIN 6.3 g/dL (14.0-18.0)
[2021-12-01 08:50] LABS: OVALOCYTES FEW
[2021-12-01 09:00] VITALS: BP 113/77
[2021-12-01] MEDS ORDERED: SODIUM CHLORIDE 0.9% 250ML 250 ML IV ONE (09:15)
[2021-12-01] MEDS: MEROPENEM 500 MG in SODIUM CHLORIDE 0.9% 50ML 50 ML IV SCH ×2 (10:00→21:53)
[2021-12-01] MEDS: TAMSULOSIN HCL 0.4 MG CAP PO SCH (10:36)
[2021-12-01] MEDS: FERROUS SULFATE 325 MG TAB PO SCH ×2 (10:36→17:17)
[2021-12-01] MEDS: CYANOCOBALAMIN 1,000 MCG TAB PO SCH (10:37)
[2021-12-01] MEDS: AMLODIPINE BESYLATE 5 MG TAB PO SCH (10:37)
[2021-12-01] MEDS: PRAMIPEXOLE DIHYDROCHLORIDE 0.25 MG TAB PO SCH ×3 (10:37→21:56)
[2021-12-01] MEDS: FINASTERIDE 5 MG TAB PO SCH (10:37)
[2021-12-01] MEDS: SODIUM CHLORIDE 0.9% 1000ML 1,000 ML IV SCH ×3 (10:37→21:53)
[2021-12-01] MEDS ORDERED: SODIUM CHLORIDE 0.9% 250ML 250 ML ONE ×2 (14:29→17:51)
[2021-12-01 20:00] VITALS: BP 128/67
[2021-12-01 21:00] VITALS: BP 128/67
[2021-12-01] MEDS: ATORVASTATIN 20 MG TAB PO SCH (21:56)
[2021-12-01] MEDS: METOPROLOL SUCCINATE 50 MG TAB XL PO SCH (21:56)
[2021-12-02] VITALS (7 sets, daily range): BP systolic 136–183; BP diastolic 68–89
[2021-12-02] MEDS: CARBIDOPA/LEVODOPA 25/100 TAB PO SCH ×5 (00:15→23:20)
[2021-12-02 05:07] LABS: BASOPHILS % 0.2 % (0.0-1.0); EOSINOPHILS # (AUTO) 0.2 (0.0-0.4); EOSINOPHILS % 2.8 % (0.0-6.0); HEMATOCRIT 24.7 % (38.2-49.6); HEMOGLOBIN 7.7 g/dL (14.0-18.0); LYMPHOCYTES # (AUTO) 0.3 (1.0-3.2); LYMPHOCYTES % 3.8 % (18.0-39.1); MEAN CORPUSCULAR HGB CONC 31.2 g/dL (31-35); MEAN CORPUSCULAR VOLUME 89.8 fL (81-99); MONOCYTES # (AUTO) 0.6 (0.2-0.8); MONOCYTES % 7.4 % (4.4-11.3); NEUTROPHILS # (AUTO) 6.9 (2.1-6.9); NEUTROPHILS % 85.3 % (38.7-80.0); PLATELET COUNT 147 x10e3/uL (140-360); RED BLOOD COUNT 2.75 x10e6/uL (4.3-5.7)
[2021-12-02 05:23] LABS: ANION GAP 14.5 mmol/L (8-16); CALCIUM 8.9 mg/dL (8.4-10.2); CREATININE, SERUM 3.72 mg/dL (0.72-1.25); POTASSIUM 4.5 mmol/L (3.5-5.1)
[2021-12-02] MEDS: SODIUM CHLORIDE 0.9% 1000ML 1,000 ML IV SCH ×3 (05:30→21:53)
[2021-12-02] MEDS: PANTOPRAZOLE SOD 40 MG TABEC PO SCH ×3 (07:30→17:09)
[2021-12-02] MEDS: FINASTERIDE 5 MG TAB PO SCH ×2 (08:50→09:00)
[2021-12-02] MEDS: CYANOCOBALAMIN 1,000 MCG TAB PO SCH ×2 (08:50→09:00)
[2021-12-02] MEDS: PRAMIPEXOLE DIHYDROCHLORIDE 0.25 MG TAB PO SCH ×4 (08:50→21:53)
[2021-12-02] MEDS: FERROUS SULFATE 325 MG TAB PO SCH ×3 (08:50→17:09)
[2021-12-02] MEDS: TAMSULOSIN HCL 0.4 MG CAP PO SCH ×2 (08:50→09:00)
[2021-12-02] MEDS: AMLODIPINE BESYLATE 5 MG TAB PO SCH ×2 (08:50→09:00)
[2021-12-02] MEDS: MEROPENEM 500 MG in SODIUM CHLORIDE 0.9% 50ML 50 ML IV SCH ×2 (10:55→21:54)
[2021-12-02] MEDS ORDERED: PROPOFOL IV EMULSION 10 MG/ML 20 ML VIAL ONE (12:41)
[2021-12-02] MEDS ORDERED: LIDOCAINE HCL 2% LOCAL INJ 5 ML SDV VIAL INJ ONE (12:41)
[2021-12-02] MEDS: ATORVASTATIN 20 MG TAB PO SCH (21:53)
[2021-12-02] MEDS: METOPROLOL SUCCINATE 50 MG TAB XL PO SCH (21:54)
[2021-12-03] VITALS (8 sets, daily range): BP systolic 133–153; BP diastolic 70–85
[2021-12-03] MEDS: SODIUM CHLORIDE 0.9% 1000ML 1,000 ML IV SCH ×3 (03:20→19:38)
[2021-12-03] MEDS: CARBIDOPA/LEVODOPA 25/100 TAB PO SCH ×3 (05:52→15:32)
[2021-12-03 07:54] LABS: BASOPHILS % 0.5 % (0.0-1.0); EOSINOPHILS # (AUTO) 0.3 (0.0-0.4); EOSINOPHILS % 3.9 % (0.0-6.0); HEMATOCRIT 26.4 % (38.2-49.6); HEMOGLOBIN 8.3 g/dL (14.0-18.0); LYMPHOCYTES # (AUTO) 0.4 (1.0-3.2); LYMPHOCYTES % 5.7 % (18.0-39.1); MEAN CORPUSCULAR HEMOGLOBIN 27.9 pg (28-32); MEAN CORPUSCULAR HGB CONC 31.4 g/dL (31-35); MEAN CORPUSCULAR VOLUME 88.6 fL (81-99); MONOCYTES # (AUTO) 0.7 (0.2-0.8); MONOCYTES % 10.4 % (4.4-11.3); NEUTROPHILS % 78.7 % (38.7-80.0); PLATELET COUNT 171 x10e3/uL (140-360); RED BLOOD COUNT 2.98 x10e6/uL (4.3-5.7); RED CELL DISTRIBUTION WIDTH 17.6 % (11.7-14.4)
[2021-12-03 08:12] LABS: ANION GAP 13.6 mmol/L (8-16); CREATININE, SERUM 3.18 mg/dL (0.72-1.25); POTASSIUM 4.6 mmol/L (3.5-5.1)
[2021-12-03] MEDS: FERROUS SULFATE 325 MG TAB PO SCH ×2 (11:13→15:30)
[2021-12-03] MEDS: PRAMIPEXOLE DIHYDROCHLORIDE 0.25 MG TAB PO SCH ×3 (11:13→20:54)
[2021-12-03] MEDS: PANTOPRAZOLE SOD 40 MG TABEC PO SCH ×2 (11:13→15:30)
[2021-12-03] MEDS: AMLODIPINE BESYLATE 5 MG TAB PO SCH (11:13)
[2021-12-03] MEDS: TAMSULOSIN HCL 0.4 MG CAP PO SCH (11:13)
[2021-12-03] MEDS: MEROPENEM 500 MG in SODIUM CHLORIDE 0.9% 50ML 50 ML IV SCH ×2 (11:14→20:54)
[2021-12-03] MEDS: FINASTERIDE 5 MG TAB PO SCH (11:14)
[2021-12-03] MEDS: CYANOCOBALAMIN 1,000 MCG TAB PO SCH (11:14)
[2021-12-03] MEDS ORDERED: HEPARIN SOD (PORCINE) 1000 UNIT/ML SDV ONE (13:24)
[2021-12-03] MEDS: ATORVASTATIN 20 MG TAB PO SCH (20:54)
[2021-12-03] MEDS: METOPROLOL SUCCINATE 50 MG TAB XL PO SCH (20:54)
[2021-12-04] VITALS (8 sets, daily range): BP systolic 135–169; BP diastolic 69–84
[2021-12-04] MEDS: CARBIDOPA/LEVODOPA 25/100 TAB PO SCH ×5 (00:08→23:27)
[2021-12-04] MEDS ORDERED: BISACODYL 5 MG TAB EC PO ONE ×4 (00:30→11:30)
[2021-12-04] MEDS: SODIUM CHLORIDE 0.9% 1000ML 1,000 ML IV SCH ×3 (03:43→22:03)
[2021-12-04] MEDS ORDERED: CITRATE OF MAGNESIA 300ML BOTTLE PO ONE ×2 (05:00→07:00)
[2021-12-04] MEDS: PANTOPRAZOLE SOD 40 MG TABEC PO SCH ×2 (07:30→16:30)
[2021-12-04 07:51] LABS: BASOPHILS # (AUTO) 0.1 (0.0-0.1); BASOPHILS % 0.9 % (0.0-1.0); EOSINOPHILS # (AUTO) 0.2 (0.0-0.4); EOSINOPHILS % 4.1 % (0.0-6.0); HEMATOCRIT 32.5 % (38.2-49.6); HEMOGLOBIN 9.1 g/dL (14.0-18.0); LYMPHOCYTES # (AUTO) 0.4 (1.0-3.2); LYMPHOCYTES % 7.1 % (18.0-39.1); MEAN CORPUSCULAR HEMOGLOBIN 27.7 pg (28-32); MEAN CORPUSCULAR VOLUME 99.1 fL (81-99); MONOCYTES # (AUTO) 0.8 (0.2-0.8); MONOCYTES % 14.1 % (4.4-11.3); NEUTROPHILS # (AUTO) 4.2 (2.1-6.9); NEUTROPHILS % 73.1 % (38.7-80.0); PLATELET COUNT 193 x10e3/uL (140-360); RED BLOOD COUNT 3.28 x10e6/uL (4.3-5.7); RED CELL DISTRIBUTION WIDTH 17.8 % (11.7-14.4)
[2021-12-04 08:17] LABS: ANION GAP 13.3 mmol/L (8-16); CALCIUM 9.2 mg/dL (8.4-10.2); CREATININE, SERUM 2.96 mg/dL (0.72-1.25); POTASSIUM 4.3 mmol/L (3.5-5.1)
[2021-12-04] MEDS: TAMSULOSIN HCL 0.4 MG CAP PO SCH (09:00)
[2021-12-04] MEDS: AMLODIPINE BESYLATE 5 MG TAB PO SCH (09:00)
[2021-12-04] MEDS: PRAMIPEXOLE DIHYDROCHLORIDE 0.25 MG TAB PO SCH ×3 (09:00→22:03)
[2021-12-04] MEDS: FINASTERIDE 5 MG TAB PO SCH (09:00)
[2021-12-04] MEDS ORDERED: ONDANSETRON HCL 4 MG ORAL DISINTEGRATING TAB PO PRN (09:00)
[2021-12-04] MEDS: FERROUS SULFATE 325 MG TAB PO SCH ×2 (09:00→17:00)
[2021-12-04] MEDS: CYANOCOBALAMIN 1,000 MCG TAB PO SCH (09:00)
[2021-12-04] MEDS: MEROPENEM 500 MG in SODIUM CHLORIDE 0.9% 50ML 50 ML IV SCH ×2 (09:50→22:03)
[2021-12-04] MEDS: METOPROLOL SUCCINATE 50 MG TAB XL PO SCH (22:03)
[2021-12-04] MEDS: ATORVASTATIN 20 MG TAB PO SCH (22:03)
[2021-12-05] MEDS: SODIUM CHLORIDE 0.9% 1000ML 1,000 ML IV SCH ×2 (03:29→11:00)
[2021-12-05 05:09] VITALS: BP 153/80
[2021-12-05] MEDS: CARBIDOPA/LEVODOPA 25/100 TAB PO SCH ×3 (05:48→17:34)
[2021-12-05] MEDS: PANTOPRAZOLE SOD 40 MG TABEC PO SCH ×2 (07:30→17:34)
[2021-12-05 07:52] VITALS: BP 150/77
[2021-12-05 08:41] LABS: BASOPHILS # (AUTO) 0.1 (0.0-0.1); BASOPHILS % 0.8 % (0.0-1.0); EOSINOPHILS # (AUTO) 0.3 (0.0-0.4); EOSINOPHILS % 4.8 % (0.0-6.0); HEMATOCRIT 27.7 % (38.2-49.6); HEMOGLOBIN 8.5 g/dL (14.0-18.0); LYMPHOCYTES # (AUTO) 0.5 (1.0-3.2); MEAN CORPUSCULAR HEMOGLOBIN 27.9 pg (28-32); MEAN CORPUSCULAR HGB CONC 30.7 g/dL (31-35); MEAN CORPUSCULAR VOLUME 90.8 fL (81-99); MONOCYTES # (AUTO) 0.6 (0.2-0.8); MONOCYTES % 9.7 % (4.4-11.3); NEUTROPHILS # (AUTO) 4.5 (2.1-6.9); PLATELET COUNT 232 x10e3/uL (140-360); RED BLOOD COUNT 3.05 x10e6/uL (4.3-5.7); RED CELL DISTRIBUTION WIDTH 17.5 % (11.7-14.4)
[2021-12-05 08:59] LABS: CALCIUM 8.9 mg/dL (8.4-10.2); CREATININE, SERUM 2.2 mg/dL (0.72-1.25)
[2021-12-05] MEDS: FERROUS SULFATE 325 MG TAB PO SCH ×2 (09:00→17:34)
[2021-12-05] MEDS: TAMSULOSIN HCL 0.4 MG CAP PO SCH (09:00)
[2021-12-05] MEDS: NIFEDIPINE CR 30 MG TAB PO SCH ×2 (09:00→09:51)
[2021-12-05] MEDS: CYANOCOBALAMIN 1,000 MCG TAB PO SCH (09:00)
[2021-12-05] MEDS: PRAMIPEXOLE DIHYDROCHLORIDE 0.25 MG TAB PO SCH ×3 (09:00→21:22)
[2021-12-05] MEDS: FINASTERIDE 5 MG TAB PO SCH (09:00)
[2021-12-05] MEDS: MEROPENEM 500 MG in SODIUM CHLORIDE 0.9% 50ML 50 ML IV SCH ×2 (10:00→22:04)
[2021-12-05 10:13] VITALS: BP 150/77
[2021-12-05 11:30] VITALS: BP 142/78
[2021-12-05] MEDS ORDERED: PROPOFOL IV EMULSION 10 MG/ML 20 ML VIAL ONE (13:23)
[2021-12-05] MEDS ORDERED: FENTANYL CITRATE/PF 100MCG/2 ML INJ ONE (14:16)
[2021-12-05] MEDS ORDERED: MIDAZOLAM HCL 2 MG/2 ML VIAL ONE (14:16)
[2021-12-05] MEDS: ATORVASTATIN 20 MG TAB PO SCH (21:22)
[2021-12-05] MEDS: METOPROLOL SUCCINATE 50 MG TAB XL PO SCH (21:22)
[2021-12-05 21:35] VITALS: BP 149/75
[2021-12-05 21:56] VITALS: BP 149/75
[2021-12-06] VITALS (8 sets, daily range): BP systolic 121–160; BP diastolic 67–81
[2021-12-06] MEDS: CARBIDOPA/LEVODOPA 25/100 TAB PO SCH ×4 (00:29→17:59)
[2021-12-06] MEDS: SODIUM CHLORIDE 0.9% 1000ML 1,000 ML IV SCH ×4 (02:20→19:00)
[2021-12-06] MEDS: PANTOPRAZOLE SOD 40 MG TABEC PO SCH ×2 (07:30→16:30)
[2021-12-06 07:51] LABS: CALCIUM 8.9 mg/dL (8.4-10.2)
[2021-12-06 08:05] LABS: CREATININE, SERUM 1.93 mg/dL (0.72-1.25)
[2021-12-06] MEDS: FERROUS SULFATE 325 MG TAB PO SCH ×2 (09:00→17:00)
[2021-12-06] MEDS: NIFEDIPINE CR 30 MG TAB PO SCH (09:00)
[2021-12-06] MEDS: PRAMIPEXOLE DIHYDROCHLORIDE 0.25 MG TAB PO SCH ×3 (09:00→21:18)
[2021-12-06] MEDS: TAMSULOSIN HCL 0.4 MG CAP PO SCH (09:00)
[2021-12-06] MEDS: CYANOCOBALAMIN 1,000 MCG TAB PO SCH (09:00)
[2021-12-06] MEDS: FINASTERIDE 5 MG TAB PO SCH (09:00)
[2021-12-06] MEDS: MEROPENEM 500 MG in SODIUM CHLORIDE 0.9% 50ML 50 ML IV SCH ×2 (09:18→21:19)
[2021-12-06] MEDS ORDERED: SODIUM CHLORIDE 0.9% 250ML 250 ML IV ONE (10:00)
[2021-12-06] MEDS: ATORVASTATIN 20 MG TAB PO SCH (21:18)
[2021-12-06] MEDS: METOPROLOL SUCCINATE 50 MG TAB XL PO SCH (21:19)
[2021-12-07] VITALS (7 sets, daily range): BP systolic 147–170; BP diastolic 75–84
[2021-12-07] MEDS: SODIUM CHLORIDE 0.9% 1000ML 1,000 ML IV SCH ×3 (00:02→20:06)
[2021-12-07] MEDS: CARBIDOPA/LEVODOPA 25/100 TAB PO SCH ×4 (00:02→19:26)
[2021-12-07] MEDS: PANTOPRAZOLE SOD 40 MG TABEC PO SCH ×2 (07:30→17:05)
[2021-12-07] MEDS: TAMSULOSIN HCL 0.4 MG CAP PO SCH (09:00)
[2021-12-07] MEDS: FERROUS SULFATE 325 MG TAB PO SCH ×2 (09:00→17:05)
[2021-12-07] MEDS: NIFEDIPINE CR 30 MG TAB PO SCH (09:00)
[2021-12-07] MEDS: FINASTERIDE 5 MG TAB PO SCH (09:00)
[2021-12-07] MEDS: PRAMIPEXOLE DIHYDROCHLORIDE 0.25 MG TAB PO SCH ×3 (09:00→21:38)
[2021-12-07] MEDS: CYANOCOBALAMIN 1,000 MCG TAB PO SCH (09:00)
[2021-12-07 09:21] LABS: BASOPHILS # (AUTO) 0.1 (0.0-0.1); BASOPHILS % 0.6 % (0.0-1.0); EOSINOPHILS # (AUTO) 0.4 (0.0-0.4); HEMATOCRIT 29.8 % (38.2-49.6); HEMOGLOBIN 9.2 g/dL (14.0-18.0); LYMPHOCYTES # (AUTO) 0.6 (1.0-3.2); LYMPHOCYTES % 7.7 % (18.0-39.1); MEAN CORPUSCULAR HGB CONC 30.9 g/dL (31-35); MEAN CORPUSCULAR VOLUME 90.6 fL (81-99); MONOCYTES # (AUTO) 0.5 (0.2-0.8); MONOCYTES % 6.3 % (4.4-11.3); NEUTROPHILS # (AUTO) 6.2 (2.1-6.9); NEUTROPHILS % 79.8 % (38.7-80.0); PLATELET COUNT 306 x10e3/uL (140-360); RED BLOOD COUNT 3.29 x10e6/uL (4.3-5.7); RED CELL DISTRIBUTION WIDTH 17.2 % (11.7-14.4)
[2021-12-07 09:59] LABS: ANION GAP 12.2 mmol/L (8-16); CALCIUM 8.7 mg/dL (8.4-10.2); CREATININE, SERUM 1.74 mg/dL (0.72-1.25); POTASSIUM 4.2 mmol/L (3.5-5.1)
[2021-12-07] MEDS: MEROPENEM 500 MG in SODIUM CHLORIDE 0.9% 50ML 50 ML IV SCH ×2 (10:00→21:38)
[2021-12-07] MEDS: ATORVASTATIN 20 MG TAB PO SCH (21:38)
[2021-12-07] MEDS: METOPROLOL SUCCINATE 50 MG TAB XL PO SCH (21:38)
[2021-12-08] VITALS (8 sets, daily range): BP systolic 131–169; BP diastolic 67–87
[2021-12-08] MEDS: CARBIDOPA/LEVODOPA 25/100 TAB PO SCH ×4 (00:54→17:47)
[2021-12-08] MEDS: SODIUM CHLORIDE 0.9% 1000ML 1,000 ML IV SCH ×3 (03:13→21:28)
[2021-12-08] MEDS: PANTOPRAZOLE SOD 40 MG TABEC PO SCH ×2 (07:30→16:38)
[2021-12-08] MEDS: FINASTERIDE 5 MG TAB PO SCH (09:00)
[2021-12-08] MEDS: TAMSULOSIN HCL 0.4 MG CAP PO SCH (09:00)
[2021-12-08] MEDS: NIFEDIPINE CR 30 MG TAB PO SCH (09:00)
[2021-12-08] MEDS: PRAMIPEXOLE DIHYDROCHLORIDE 0.25 MG TAB PO SCH ×3 (09:00→21:05)
[2021-12-08] MEDS: FERROUS SULFATE 325 MG TAB PO SCH ×2 (09:00→16:47)
[2021-12-08] MEDS: CYANOCOBALAMIN 1,000 MCG TAB PO SCH (09:00)
[2021-12-08] MEDS: MEROPENEM 500 MG in SODIUM CHLORIDE 0.9% 50ML 50 ML IV SCH ×2 (10:00→22:09)
[2021-12-08] MEDS: ATORVASTATIN 20 MG TAB PO SCH (21:05)
[2021-12-08] MEDS: METOPROLOL SUCCINATE 50 MG TAB XL PO SCH (21:06)
[2021-12-09] MEDS: CARBIDOPA/LEVODOPA 25/100 TAB PO SCH ×5 (00:10→17:18)
[2021-12-09 00:57] VITALS: BP 147/72
[2021-12-09] MEDS: SODIUM CHLORIDE 0.9% 1000ML 1,000 ML IV SCH ×3 (03:47→19:43)
[2021-12-09 05:57] VITALS: BP 166/87
[2021-12-09] MEDS: PANTOPRAZOLE SOD 40 MG TABEC PO SCH ×2 (07:30→16:35)
[2021-12-09] MEDS: TAMSULOSIN HCL 0.4 MG CAP PO SCH ×2 (09:00→16:35)
[2021-12-09] MEDS: FERROUS SULFATE 325 MG TAB PO SCH ×2 (09:00→16:35)
[2021-12-09] MEDS: CYANOCOBALAMIN 1,000 MCG TAB PO SCH ×2 (09:00→16:35)
[2021-12-09] MEDS: PRAMIPEXOLE DIHYDROCHLORIDE 0.25 MG TAB PO SCH ×3 (09:00→21:05)
[2021-12-09] MEDS: MEROPENEM 500 MG in SODIUM CHLORIDE 0.9% 50ML 50 ML IV SCH ×2 (09:58→21:06)
[2021-12-09 10:10] VITALS: BP 155/73
[2021-12-09] MEDS ORDERED: IOPAMIDOL 300MG/ML 50ML INFUS..BTL IV ONE (11:00)
[2021-12-09] MEDS ORDERED: B&O 60MG R/S 60 MG SUPP PR ONE (11:01)
[2021-12-09] MEDS ORDERED: LIDOCAINE 2%/ EPINEPHRINE 20ML MDV ONE (11:03)
[2021-12-09] MEDS ORDERED: BUPIVACAINE HCL 0.5% INJ 30 ML VIAL INJ ONE (11:03)
[2021-12-09] MEDS ORDERED: DEXAMETHASONE SOD PHOS INJ 4 MG/ML SDV ONE (12:50)
[2021-12-09] MEDS ORDERED: SEVOFLURANE INHAL SOLN 250 ML PEN BTL ONE (12:50)
[2021-12-09] MEDS ORDERED: LIDOCAINE HCL 2% LOCAL INJ 5 ML SDV VIAL INJ ONE (12:50)
[2021-12-09] MEDS ORDERED: PROPOFOL IV EMULSION 10 MG/ML 20 ML VIAL ONE (12:50)
[2021-12-09] MEDS ORDERED: POVIDONE IODINE 0.05% 0.05 % ML PO ONE (12:50)
[2021-12-09] MEDS ORDERED: ONDANSETRON HCL INJ 2MG/ML 2ML 2 MG/ML VIAL ONE (12:50)
[2021-12-09] MEDS ORDERED: EPHEDRINE SULFATE INJ 50 MG/ML VIAL ONE (12:50)
[2021-12-09] MEDS ORDERED: FENTANYL CITRATE/PF 100MCG/2 ML INJ ONE (13:24)
[2021-12-09] MEDS: FINASTERIDE 5 MG TAB PO SCH (16:35)
[2021-12-09] MEDS: NIFEDIPINE CR 30 MG TAB PO SCH (16:35)
[2021-12-09 20:00] VITALS: BP 149/80
[2021-12-09] MEDS: ATORVASTATIN 20 MG TAB PO SCH (21:05)
[2021-12-09] MEDS: METOPROLOL SUCCINATE 50 MG TAB XL PO SCH (21:16)
[2021-12-10] VITALS: BP 154/69
[2021-12-10 04:00] VITALS: BP 170/83
[2021-12-10] MEDS: SODIUM CHLORIDE 0.9% 1000ML 1,000 ML IV SCH (04:15)
[2021-12-10] MEDS: CARBIDOPA/LEVODOPA 25/100 TAB PO SCH ×2 (04:15→05:25)
[2021-12-10 06:17] VITALS: BP 154/69
[2021-12-10 07:27] LABS: BASOPHILS % 0.4 % (0.0-1.0); EOSINOPHILS # (AUTO) 0.1 (0.0-0.4); HEMATOCRIT 28.6 % (38.2-49.6); HEMOGLOBIN 9.1 g/dL (14.0-18.0); LYMPHOCYTES # (AUTO) 0.9 (1.0-3.2); LYMPHOCYTES % 8.2 % (18.0-39.1); MEAN CORPUSCULAR HEMOGLOBIN 27.7 pg (28-32); MEAN CORPUSCULAR HGB CONC 31.8 g/dL (31-35); MEAN CORPUSCULAR VOLUME 86.9 fL (81-99); MONOCYTES # (AUTO) 0.5 (0.2-0.8); MONOCYTES % 4.7 % (4.4-11.3); NEUTROPHILS # (AUTO) 8.9 (2.1-6.9); PLATELET COUNT 321 x10e3/uL (140-360); RED BLOOD COUNT 3.29 x10e6/uL (4.3-5.7); RED CELL DISTRIBUTION WIDTH 17.2 % (11.7-14.4)
[2021-12-10 07:30] VITALS: BP 134/77
[2021-12-10] MEDS: PANTOPRAZOLE SOD 40 MG TABEC PO SCH (07:30)
[2021-12-10 07:57] LABS: ANION GAP 12.2 mmol/L (8-16); CREATININE, SERUM 1.53 mg/dL (0.72-1.25); POTASSIUM 4.2 mmol/L (3.5-5.1)
[2021-12-10] MEDS ORDERED: NIFEDIPINE CR 30 MG TAB PO SCH (09:00)
[2021-12-10] MEDS: FERROUS SULFATE 325 MG TAB PO SCH (09:00)
[2021-12-10] MEDS: TAMSULOSIN HCL 0.4 MG CAP PO SCH (09:00)
[2021-12-10] MEDS: FINASTERIDE 5 MG TAB PO SCH (09:00)
[2021-12-10] MEDS: PRAMIPEXOLE DIHYDROCHLORIDE 0.25 MG TAB PO SCH (09:00)
[2021-12-10] MEDS: CYANOCOBALAMIN 1,000 MCG TAB PO SCH (09:00)
[2021-12-10 09:07] VITALS: BP 134/77
[2021-12-10] MEDS: MEROPENEM 500 MG in SODIUM CHLORIDE 0.9% 50ML 50 ML IV SCH (10:26)
[2021-12-10 11:16] VITALS: BP 126/73
== END 2021-12-10 14:47 | disposition home or self-care (01) | DRG 871 ==
LOC: ER 17:03 → ERHOLD 18:47 → MED/SURG2 21:22
PROVIDERS: ADMIT Internal Medicine; ATTEND Internal Medicine
PROC: 30233N1 Transfusion of Nonautologous Red Blood Cells into Peripheral Vein, Percutaneous Approach (ICD-10-PCS; 2021-12-01)
PROC: 0DB68ZX Excision of Stomach, Via Natural or Artificial Opening Endoscopic, Diagnostic (ICD-10-PCS; principal; 2021-12-02 11:30)
PROC: 0DBL8ZX Excision of Transverse Colon, Via Natural or Artificial Opening Endoscopic, Diagnostic (ICD-10-PCS; 2021-12-05)
PROC: 0DBH8ZX Excision of Cecum, Via Natural or Artificial Opening Endoscopic, Diagnostic (ICD-10-PCS; 2021-12-05 15:15)
PROC: 02HV33Z Insertion of Infusion Device into Superior Vena Cava, Percutaneous Approach (ICD-10-PCS; 2021-12-08)
PROC: 0TCB8ZZ Extirpation of Matter from Bladder, Via Natural or Artificial Opening Endoscopic (ICD-10-PCS; 2021-12-09)
PROC: BT141ZZ Fluoroscopy of Kidneys, Ureters and Bladder using Low Osmolar Contrast (ICD-10-PCS; 2021-12-09)
PROC: 0T9B40Z Drainage of Bladder with Drainage Device, Percutaneous Endoscopic Approach (ICD-10-PCS; 2021-12-09)
DX: A41.59 Other Gram-negative sepsis (principal); K57.33 Diverticulitis of large intestine without perforation or abscess with bleeding; N13.6 Pyonephrosis; N17.9 Acute kidney failure, unspecified; G61.81 Chronic inflammatory demyelinating polyneuritis; M86.671 Other chronic osteomyelitis, right ankle and foot; K92.2 Gastrointestinal hemorrhage, unspecified; Z16.12 Extended spectrum beta lactamase (ESBL) resistance; E87.5 Hyperkalemia; G20 Parkinson's disease; I12.9 Hypertensive chronic kidney disease with stage 1 through stage 4 chronic kidney disease, or unspecified chronic kidney disease; Z87.891 Personal history of nicotine dependence; K29.70 Gastritis, unspecified, without bleeding; K44.9 Diaphragmatic hernia without obstruction or gangrene; K31.7 Polyp of stomach and duodenum; D12.0 Benign neoplasm of cecum; K63.5 Polyp of colon; K57.30 Diverticulosis of large intestine without perforation or abscess without bleeding; N21.0 Calculus in bladder; N18.30 Chronic kidney disease, stage 3 unspecified; Z96.651 Presence of right artificial knee joint; D50.9 Iron deficiency anemia, unspecified; N31.9 Neuromuscular dysfunction of bladder, unspecified; B96.1 Klebsiella pneumoniae [K. pneumoniae] as the cause of diseases classified elsewhere; R65.20 Severe sepsis without septic shock; E66.9 Obesity, unspecified; Z68.28 Body mass index [BMI] 28.0-28.9, adult; K21.9 Gastro-esophageal reflux disease without esophagitis
CPT/HCPCS: 36415; 36569; 43239; 45378; 45384; 51700; 71045; 74176; 74420; 78278; 80048; 80053; 81001; 82270; 82550; 82553; 82607; 82728; 83540; 83605; 84466; 84484; 85014; 85018; 85025; 86850; 86900; 86920; 87040; 87071; 87086; 87186; 87205; 88305; 88312; 93005; 94799; 97139; 99251; 99284; A9512; C1758; J0692; J1100; J1644; J2001; J2185; J2250; J2405; J3010; J7030; J7050; P9016; U0002

== ENCOUNTER 2022-03-12 19:13 | Inpatient (IN) | payer MEDICARE, OTHER ==
[~2022-03-12] VITALS: Ht 188 cm; Wt 99.8 kg
[~2022-03-12 19:13] MED LIST changes: +FERROUS SULFAT325 MG PO; +MULTIVITAMINS1 EAC6 PO
[2022-03-12 20:38] LABS: BASOPHILS # (AUTO) 0.1 (0.0-0.1); BASOPHILS % 0.9 % (0.0-1.0); EOSINOPHILS # (AUTO) 0.3 (0.0-0.4); EOSINOPHILS % 4.5 % (0.0-6.0); HEMATOCRIT 27.1 % (38.2-49.6); HEMOGLOBIN 8.2 g/dL (14.0-18.0); LYMPHOCYTES # (AUTO) 0.7 (1.0-3.2); MEAN CORPUSCULAR HEMOGLOBIN 29.4 pg (28-32); MEAN CORPUSCULAR HGB CONC 30.3 g/dL (31-35); MEAN CORPUSCULAR VOLUME 97.1 fL (81-99); MONOCYTES # (AUTO) 0.6 (0.2-0.8); MONOCYTES % 8.3 % (4.4-11.3); NEUTROPHILS # (AUTO) 5.7 (2.1-6.9); PLATELET COUNT 238 x10e3/uL (140-360); RED BLOOD COUNT 2.79 x10e6/uL (4.3-5.7); RED CELL DISTRIBUTION WIDTH 14.8 % (11.7-14.4)
[2022-03-12 21:02] LABS: ANION GAP 11.3 mmol/L (8-16); CALCIUM 8.4 mg/dL (8.4-10.2); CREATININE, SERUM 1.82 mg/dL (0.72-1.25); POTASSIUM 4.3 mmol/L (3.5-5.1)
[2022-03-12 21:35] LABS: CLARITY,URINE SL CLOUDY (CLEAR); COLOR,URINE YELLOW (YELLOW); KETONES,URINE NEGATIVE (NEGATIVE); LEUKOCYTE ESTERASE ,URINE LARGE (NEGATIVE); NITRITE,URINE POSITIVE (NEGATIVE); PROTEIN,URINE DIPSTICK TRACE (NEGATIVE); URINE UROBILINOGEN 0.2 mg/dL (0.2 - 1)
[2022-03-12 21:46] LABS: BACTERIA,URINE MODERATE /HPF; WBC,URINE (MAN) >50 /HPF (0-5)
[2022-03-12] MEDS ORDERED: DOCUSATE SODIUM 100 MG CAP PO PRN (22:30)
[2022-03-12] MEDS ORDERED: ONDANSETRON HCL INJ 2MG/ML 2ML 2 MG/ML VIAL IV PRN (22:30)
[2022-03-12] MEDS ORDERED: SODIUM CHLORIDE FLUSH 10 ML SYR INJ PRN (22:30)
[2022-03-12] MEDS: CARBIDOPA/LEVODOPA 25/100 TAB PO SCH (23:15)
[2022-03-12] MEDS: MEROPENEM 1 GM in SODIUM CHLORIDE 0.9% 100 ML 100 ML IV SCH (23:15)
[2022-03-12] MEDS ORDERED: SODIUM CHLORIDE 0.9% 100 ML ONE (23:16)
[2022-03-12] MEDS ORDERED: MEROPENEM 1 GM VIAL ONE (23:16)
[2022-03-13 07:04] LABS: BASOPHILS # (AUTO) 0.1 (0.0-0.1); BASOPHILS % 0.9 % (0.0-1.0); EOSINOPHILS # (AUTO) 0.3 (0.0-0.4); EOSINOPHILS % 5.7 % (0.0-6.0); HEMOGLOBIN 7.5 g/dL (14.0-18.0); LYMPHOCYTES # (AUTO) 0.8 (1.0-3.2); MEAN CORPUSCULAR HEMOGLOBIN 29.5 pg (28-32); MEAN CORPUSCULAR VOLUME 98.4 fL (81-99); MONOCYTES # (AUTO) 0.6 (0.2-0.8); MONOCYTES % 9.7 % (4.4-11.3); NEUTROPHILS % 69.4 % (38.7-80.0); PLATELET COUNT 219 x10e3/uL (140-360); RED BLOOD COUNT 2.54 x10e6/uL (4.3-5.7)
[2022-03-13 07:14] LABS: ALANINE AMINOTRANSFERASE < 6 IU/L (0-55); ALBUMIN 2.6 g/dL (3.5-5.0); ALBUMIN/GLOBULIN RATIO 0.7 (0.8-2.0); ALKALINE PHOSPHATASE 76 IU/L (40-150); ANION GAP 11.3 mmol/L (8-16); BLOOD UREA NITROGEN 29 mg/dL (7-26); BUN/CREATININE RATIO 16 (6-25); CALCIUM 8.6 mg/dL (8.4-10.2); CARBON DIOXIDE 22 mmol/L (22-29); CHLORIDE 112 mmol/L (98-107); GLUCOSE 79 mg/dL (74-118); POTASSIUM 4.3 mmol/L (3.5-5.1); SODIUM 141 mmol/L (136-145)
[2022-03-13] MEDS: PANTOPRAZOLE SOD 40 MG TABEC PO SCH ×2 (07:30→17:20)
[2022-03-13] MEDS: CARBIDOPA/LEVODOPA 25/100 TAB PO SCH ×3 (07:40→17:20)
[2022-03-13] MEDS: MEROPENEM 1 GM in SODIUM CHLORIDE 0.9% 100 ML 100 ML IV SCH ×2 (07:40→14:00)
[2022-03-13] MEDS: AZATHIOPRINE 50 MG TAB PO SCH ×3 (07:41→09:00)
[2022-03-13] MEDS: FERROUS SULFATE 325 MG TAB PO SCH ×2 (07:41→17:20)
[2022-03-13] MEDS: TAMSULOSIN HCL 0.4 MG CAP PO SCH (07:41)
[2022-03-13] MEDS: FINASTERIDE 5 MG TAB PO SCH (07:41)
[2022-03-13] MEDS: AMLODIPINE BESYLATE 5 MG TAB PO SCH (07:41)
[2022-03-13] MEDS: CYANOCOBALAMIN 1,000 MCG TAB PO SCH (07:41)
[2022-03-13] MEDS: PRAMIPEXOLE DIHYDROCHLORIDE 0.25 MG TAB PO SCH ×3 (07:42→20:50)
[2022-03-13] MEDS: MULTIVITAMINS/MINERALS TAB PO SCH (07:42)
[2022-03-13] MEDS ORDERED: MEROPENEM 1 GM VIAL ONE (07:49)
[2022-03-13 15:13] LABS: FERRITIN 117.67 ng/mL (21.81-274.66)
[2022-03-13 17:27] VITALS: BP 121/77
[2022-03-13 17:33] VITALS: BP 123/64
[2022-03-13 18:40] VITALS: BP 123/64
[2022-03-13 20:00] VITALS: BP 127/69
[2022-03-13] MEDS: METOPROLOL SUCCINATE 50 MG TAB XL PO SCH (20:50)
[2022-03-13] MEDS: ATORVASTATIN 20 MG TAB PO SCH (20:50)
[2022-03-13] MEDS ORDERED: SODIUM CHLORIDE 0.9% 250ML 250 ML ONE (22:13)
[2022-03-13] MEDS: MEROPENEM 1 GM in SODIUM CHLORIDE 0.9% 100 ML IV SCH (22:22)
[2022-03-14] VITALS (8 sets, daily range): BP systolic 113–138; BP diastolic 60–72
[2022-03-14] MEDS: CARBIDOPA/LEVODOPA 25/100 TAB PO SCH ×5 (06:00→23:51)
[2022-03-14] MEDS: MEROPENEM 1 GM in SODIUM CHLORIDE 0.9% 100 ML IV SCH ×3 (06:00→22:00)
[2022-03-14] MEDS: PANTOPRAZOLE SOD 40 MG TABEC PO SCH ×2 (07:30→17:36)
[2022-03-14] MEDS: CYANOCOBALAMIN 1,000 MCG TAB PO SCH (09:00)
[2022-03-14] MEDS: FINASTERIDE 5 MG TAB PO SCH (09:00)
[2022-03-14] MEDS: MULTIVITAMINS/MINERALS TAB PO SCH (09:00)
[2022-03-14] MEDS: AMLODIPINE BESYLATE 5 MG TAB PO SCH (09:00)
[2022-03-14] MEDS: AZATHIOPRINE 50 MG TAB PO SCH ×2 (09:00→17:36)
[2022-03-14] MEDS: TAMSULOSIN HCL 0.4 MG CAP PO SCH (09:00)
[2022-03-14] MEDS: FERROUS SULFATE 325 MG TAB PO SCH ×2 (09:00→17:36)
[2022-03-14] MEDS: PRAMIPEXOLE DIHYDROCHLORIDE 0.25 MG TAB PO SCH ×3 (09:00→20:44)
[2022-03-14 10:01] LABS: COLOR,URINE YELLOW (YELLOW)
[2022-03-14 10:02] LABS: CLARITY,URINE SL CLOUDY (CLEAR); KETONES,URINE NEGATIVE (NEGATIVE); LEUKOCYTE ESTERASE ,URINE LARGE (NEGATIVE); NITRITE,URINE NEGATIVE (NEGATIVE); PROTEIN,URINE DIPSTICK 1+ (NEGATIVE); URINE UROBILINOGEN 0.2 mg/dL (0.2 - 1)
[2022-03-14 10:03] LABS: EPITHELIAL CELLS,URINE FEW /LPF
[2022-03-14 10:39] LABS: RBC,URINE 21-50 /HPF (0-5); WBC,URINE (MAN) 21-50 /HPF (0-5)
[2022-03-14 10:41] LABS: BACTERIA,URINE RARE /HPF
[2022-03-14] MEDS: ATORVASTATIN 20 MG TAB PO SCH (20:44)
[2022-03-14] MEDS: METOPROLOL SUCCINATE 50 MG TAB XL PO SCH (20:47)
[2022-03-14] MEDS: ACETAMINOPHEN 325 MG TAB PO PRN (23:51)
[2022-03-15] VITALS (8 sets, daily range): BP systolic 128–143; BP diastolic 63–84
[2022-03-15] MEDS: CARBIDOPA/LEVODOPA 25/100 TAB PO SCH ×3 (06:00→18:00)
[2022-03-15] MEDS: MEROPENEM 1 GM in SODIUM CHLORIDE 0.9% 100 ML IV SCH ×3 (06:00→21:30)
[2022-03-15] MEDS: FERROUS SULFATE 325 MG TAB PO SCH ×2 (11:00→17:00)
[2022-03-15] MEDS: FINASTERIDE 5 MG TAB PO SCH (11:00)
[2022-03-15] MEDS: CYANOCOBALAMIN 1,000 MCG TAB PO SCH (11:00)
[2022-03-15] MEDS: AZATHIOPRINE 50 MG TAB PO SCH ×2 (11:00→17:00)
[2022-03-15] MEDS: PRAMIPEXOLE DIHYDROCHLORIDE 0.25 MG TAB PO SCH ×3 (11:00→21:03)
[2022-03-15] MEDS: TAMSULOSIN HCL 0.4 MG CAP PO SCH (11:00)
[2022-03-15] MEDS: AMLODIPINE BESYLATE 5 MG TAB PO SCH (11:00)
[2022-03-15] MEDS: PANTOPRAZOLE SOD 40 MG TABEC PO SCH ×2 (11:00→16:30)
[2022-03-15] MEDS: MULTIVITAMINS/MINERALS TAB PO SCH (11:00)
[2022-03-15] MEDS: ACETAMINOPHEN 325 MG TAB PO PRN (11:19)
[2022-03-15] MEDS: ATORVASTATIN 20 MG TAB PO SCH (21:03)
[2022-03-15] MEDS: METOPROLOL SUCCINATE 50 MG TAB XL PO SCH (21:04)
[2022-03-16] VITALS (7 sets, daily range): BP systolic 123–156; BP diastolic 62–81
[2022-03-16] MEDS: ACETAMINOPHEN 325 MG TAB PO PRN ×2 (01:08→14:38)
[2022-03-16] MEDS: CARBIDOPA/LEVODOPA 25/100 TAB PO SCH ×5 (05:55→22:55)
[2022-03-16] MEDS: MEROPENEM 1 GM in SODIUM CHLORIDE 0.9% 100 ML IV SCH ×3 (05:55→21:01)
[2022-03-16] MEDS: PANTOPRAZOLE SOD 40 MG TABEC PO SCH ×2 (09:57→16:53)
[2022-03-16] MEDS: FERROUS SULFATE 325 MG TAB PO SCH ×2 (09:58→16:53)
[2022-03-16] MEDS: TAMSULOSIN HCL 0.4 MG CAP PO SCH (09:58)
[2022-03-16] MEDS: MULTIVITAMINS/MINERALS TAB PO SCH (09:58)
[2022-03-16] MEDS: FINASTERIDE 5 MG TAB PO SCH (09:58)
[2022-03-16] MEDS: PRAMIPEXOLE DIHYDROCHLORIDE 0.25 MG TAB PO SCH ×3 (09:58→21:00)
[2022-03-16] MEDS: AMLODIPINE BESYLATE 5 MG TAB PO SCH (09:58)
[2022-03-16] MEDS: CYANOCOBALAMIN 1,000 MCG TAB PO SCH (09:58)
[2022-03-16] MEDS: AZATHIOPRINE 50 MG TAB PO SCH ×2 (09:58→16:53)
[2022-03-16] MEDS: ATORVASTATIN 20 MG TAB PO SCH (21:00)
[2022-03-16] MEDS: METOPROLOL SUCCINATE 50 MG TAB XL PO SCH (21:05)
[2022-03-17] VITALS (8 sets, daily range): BP systolic 125–148; BP diastolic 59–89
[2022-03-17] MEDS: CARBIDOPA/LEVODOPA 25/100 TAB PO SCH ×3 (05:46→17:03)
[2022-03-17] MEDS: MEROPENEM 1 GM in SODIUM CHLORIDE 0.9% 100 ML IV SCH ×3 (05:46→22:00)
[2022-03-17] MEDS: PANTOPRAZOLE SOD 40 MG TABEC PO SCH ×2 (07:30→16:30)
[2022-03-17] MEDS: AZATHIOPRINE 50 MG TAB PO SCH ×2 (09:00→17:00)
[2022-03-17] MEDS: MULTIVITAMINS/MINERALS TAB PO SCH (09:00)
[2022-03-17] MEDS: AMLODIPINE BESYLATE 5 MG TAB PO SCH (09:00)
[2022-03-17] MEDS: FINASTERIDE 5 MG TAB PO SCH (09:00)
[2022-03-17] MEDS: FERROUS SULFATE 325 MG TAB PO SCH ×2 (09:00→17:00)
[2022-03-17] MEDS: TAMSULOSIN HCL 0.4 MG CAP PO SCH (09:00)
[2022-03-17] MEDS: CYANOCOBALAMIN 1,000 MCG TAB PO SCH (09:00)
[2022-03-17] MEDS: PRAMIPEXOLE DIHYDROCHLORIDE 0.25 MG TAB PO SCH ×3 (09:00→20:35)
[2022-03-17] MEDS ORDERED: ONDANSETRON HCL 4 MG ORAL DISINTEGRATING TAB PO PRN (10:30)
[2022-03-17] MEDS: ATORVASTATIN 20 MG TAB PO SCH (20:35)
[2022-03-17] MEDS: METOPROLOL SUCCINATE 50 MG TAB XL PO SCH (20:35)
[2022-03-18] VITALS (8 sets, daily range): BP systolic 102–149; BP diastolic 55–92
[2022-03-18] MEDS: MEROPENEM 1 GM in SODIUM CHLORIDE 0.9% 100 ML IV SCH ×3 (06:00→21:24)
[2022-03-18] MEDS: CARBIDOPA/LEVODOPA 25/100 TAB PO SCH ×4 (06:00→16:41)
[2022-03-18] MEDS: CYANOCOBALAMIN 1,000 MCG TAB PO SCH (08:55)
[2022-03-18] MEDS: MULTIVITAMINS/MINERALS TAB PO SCH (08:55)
[2022-03-18] MEDS: TAMSULOSIN HCL 0.4 MG CAP PO SCH (08:55)
[2022-03-18] MEDS: AMLODIPINE BESYLATE 5 MG TAB PO SCH (08:55)
[2022-03-18] MEDS: PANTOPRAZOLE SOD 40 MG TABEC PO SCH ×2 (08:55→16:41)
[2022-03-18] MEDS: PRAMIPEXOLE DIHYDROCHLORIDE 0.25 MG TAB PO SCH ×3 (08:55→21:00)
[2022-03-18] MEDS: FERROUS SULFATE 325 MG TAB PO SCH ×2 (08:55→16:41)
[2022-03-18] MEDS: AZATHIOPRINE 50 MG TAB PO SCH ×2 (08:55→16:41)
[2022-03-18] MEDS: FINASTERIDE 5 MG TAB PO SCH (08:55)
[2022-03-18 10:57] LABS: BASOPHILS # (AUTO) 0.1 (0.0-0.1); BASOPHILS % 0.8 % (0.0-1.0); EOSINOPHILS # (AUTO) 0.4 (0.0-0.4); EOSINOPHILS % 5.4 % (0.0-6.0); HEMATOCRIT 27.6 % (38.2-49.6); HEMOGLOBIN 8.5 g/dL (14.0-18.0); LYMPHOCYTES # (AUTO) 0.8 (1.0-3.2); LYMPHOCYTES % 12.4 % (18.0-39.1); MEAN CORPUSCULAR HEMOGLOBIN 29.8 pg (28-32); MEAN CORPUSCULAR HGB CONC 30.8 g/dL (31-35); MEAN CORPUSCULAR VOLUME 96.8 fL (81-99); MONOCYTES # (AUTO) 0.5 (0.2-0.8); NEUTROPHILS # (AUTO) 4.8 (2.1-6.9); NEUTROPHILS % 73.1 % (38.7-80.0); PLATELET COUNT 175 x10e3/uL (140-360); RED BLOOD COUNT 2.85 x10e6/uL (4.3-5.7); RED CELL DISTRIBUTION WIDTH 14.2 % (11.7-14.4)
[2022-03-18 11:15] LABS: ANION GAP 10.2 mmol/L (8-16); CALCIUM 8.4 mg/dL (8.4-10.2); CREATININE, SERUM 1.64 mg/dL (0.72-1.25); POTASSIUM 4.2 mmol/L (3.5-5.1)
[2022-03-18] MEDS ORDERED: SODIUM CHLORIDE 0.9% 250ML 250 ML ONE (14:36)
[2022-03-18] MEDS: ATORVASTATIN 20 MG TAB PO SCH (21:00)
[2022-03-18] MEDS: METOPROLOL SUCCINATE 50 MG TAB XL PO SCH (21:00)
[2022-03-19 04:00] VITALS: BP 143/81
[2022-03-19] MEDS: MEROPENEM 1 GM in SODIUM CHLORIDE 0.9% 100 ML IV SCH ×3 (06:00→21:20)
[2022-03-19] MEDS: CARBIDOPA/LEVODOPA 25/100 TAB PO SCH ×4 (06:00→18:00)
[2022-03-19 08:26] VITALS: BP 118/69
[2022-03-19 08:36] VITALS: BP 118/69
[2022-03-19] MEDS: AMLODIPINE BESYLATE 5 MG TAB PO SCH (09:29)
[2022-03-19] MEDS: AZATHIOPRINE 50 MG TAB PO SCH ×2 (09:29→16:31)
[2022-03-19] MEDS: FINASTERIDE 5 MG TAB PO SCH (09:29)
[2022-03-19] MEDS: TAMSULOSIN HCL 0.4 MG CAP PO SCH (09:29)
[2022-03-19] MEDS: PRAMIPEXOLE DIHYDROCHLORIDE 0.25 MG TAB PO SCH ×3 (09:29→21:19)
[2022-03-19] MEDS: CYANOCOBALAMIN 1,000 MCG TAB PO SCH (09:29)
[2022-03-19] MEDS: FERROUS SULFATE 325 MG TAB PO SCH ×2 (09:29→16:31)
[2022-03-19] MEDS: MULTIVITAMINS/MINERALS TAB PO SCH (09:29)
[2022-03-19] MEDS: PANTOPRAZOLE SOD 40 MG TABEC PO SCH ×2 (09:29→16:31)
[2022-03-19 11:35] VITALS: BP 115/73
[2022-03-19] MEDS: ACETAMINOPHEN 325 MG TAB PO PRN (14:42)
[2022-03-19 16:13] VITALS: BP 107/49
[2022-03-19 20:00] VITALS: BP 144/72
[2022-03-19] MEDS: ATORVASTATIN 20 MG TAB PO SCH (21:19)
[2022-03-19] MEDS: METOPROLOL SUCCINATE 50 MG TAB XL PO SCH (21:20)
[2022-03-20] VITALS: BP 136/71
[2022-03-20] MEDS: MEROPENEM 1 GM in SODIUM CHLORIDE 0.9% 100 ML IV SCH ×3 (05:30→22:30)
[2022-03-20] MEDS: CARBIDOPA/LEVODOPA 25/100 TAB PO SCH ×4 (06:24→18:00)
[2022-03-20] MEDS: PANTOPRAZOLE SOD 40 MG TABEC PO SCH ×2 (07:30→16:30)
[2022-03-20 08:00] VITALS: BP 136/71
[2022-03-20] MEDS: AMLODIPINE BESYLATE 5 MG TAB PO SCH (09:00)
[2022-03-20 09:12] VITALS: BP 112/62
[2022-03-20] MEDS: FERROUS SULFATE 325 MG TAB PO SCH ×2 (09:20→17:00)
[2022-03-20] MEDS: FINASTERIDE 5 MG TAB PO SCH (09:20)
[2022-03-20] MEDS: CYANOCOBALAMIN 1,000 MCG TAB PO SCH (09:20)
[2022-03-20] MEDS: TAMSULOSIN HCL 0.4 MG CAP PO SCH (09:20)
[2022-03-20] MEDS: MULTIVITAMINS/MINERALS TAB PO SCH (09:20)
[2022-03-20] MEDS: AZATHIOPRINE 50 MG TAB PO SCH ×2 (09:20→17:00)
[2022-03-20] MEDS: PRAMIPEXOLE DIHYDROCHLORIDE 0.25 MG TAB PO SCH ×3 (09:25→22:30)
[2022-03-20 12:00] VITALS: BP 134/68
[2022-03-20 16:00] VITALS: BP 122/68
[2022-03-20] MEDS: ATORVASTATIN 20 MG TAB PO SCH (22:30)
[2022-03-20] MEDS: METOPROLOL SUCCINATE 50 MG TAB XL PO SCH (22:30)
[2022-03-21] VITALS (9 sets, daily range): BP systolic 102–135; BP diastolic 59–78
[2022-03-21] MEDS: CARBIDOPA/LEVODOPA 25/100 TAB PO SCH ×4 (00:45→17:50)
[2022-03-21] MEDS: MEROPENEM 1 GM in SODIUM CHLORIDE 0.9% 100 ML IV SCH ×3 (05:29→21:57)
[2022-03-21] MEDS: ACETAMINOPHEN 325 MG TAB PO PRN (05:30)
[2022-03-21 07:21] LABS: BASOPHILS # (AUTO) 0.1 (0.0-0.1); BASOPHILS % 0.8 % (0.0-1.0); EOSINOPHILS # (AUTO) 0.4 (0.0-0.4); EOSINOPHILS % 5.1 % (0.0-6.0); HEMOGLOBIN 8.5 g/dL (14.0-18.0); LYMPHOCYTES # (AUTO) 1.1 (1.0-3.2); LYMPHOCYTES % 14.7 % (18.0-39.1); MEAN CORPUSCULAR HEMOGLOBIN 29.6 pg (28-32); MEAN CORPUSCULAR HGB CONC 30.4 g/dL (31-35); MEAN CORPUSCULAR VOLUME 97.6 fL (81-99); MONOCYTES # (AUTO) 0.6 (0.2-0.8); MONOCYTES % 7.7 % (4.4-11.3); NEUTROPHILS # (AUTO) 5.2 (2.1-6.9); NEUTROPHILS % 71.1 % (38.7-80.0); PLATELET COUNT 209 x10e3/uL (140-360); RED BLOOD COUNT 2.87 x10e6/uL (4.3-5.7); RED CELL DISTRIBUTION WIDTH 14.3 % (11.7-14.4)
[2022-03-21 07:45] LABS: ANION GAP 11.1 mmol/L (8-16); CALCIUM 8.4 mg/dL (8.4-10.2); CREATININE, SERUM 1.63 mg/dL (0.72-1.25); POTASSIUM 4.1 mmol/L (3.5-5.1)
[2022-03-21] MEDS: AMLODIPINE BESYLATE 5 MG TAB PO SCH (09:00)
[2022-03-21] MEDS: TAMSULOSIN HCL 0.4 MG CAP PO SCH (09:37)
[2022-03-21] MEDS: FINASTERIDE 5 MG TAB PO SCH (09:37)
[2022-03-21] MEDS: AZATHIOPRINE 50 MG TAB PO SCH ×2 (09:37→17:50)
[2022-03-21] MEDS: PANTOPRAZOLE SOD 40 MG TABEC PO SCH ×2 (09:37→17:50)
[2022-03-21] MEDS: FERROUS SULFATE 325 MG TAB PO SCH ×2 (09:37→17:50)
[2022-03-21] MEDS: CYANOCOBALAMIN 1,000 MCG TAB PO SCH (09:37)
[2022-03-21] MEDS: MULTIVITAMINS/MINERALS TAB PO SCH (09:37)
[2022-03-21] MEDS: PRAMIPEXOLE DIHYDROCHLORIDE 0.25 MG TAB PO SCH ×3 (09:45→21:54)
[2022-03-21] MEDS: ATORVASTATIN 20 MG TAB PO SCH (21:00)
[2022-03-21] MEDS: METOPROLOL SUCCINATE 50 MG TAB XL PO SCH (21:54)
[2022-03-22] VITALS: BP 127/62
[2022-03-22] MEDS: CARBIDOPA/LEVODOPA 25/100 TAB PO SCH ×4 (00:04→17:20)
[2022-03-22 04:00] VITALS: BP 114/57
[2022-03-22] MEDS: MEROPENEM 1 GM in SODIUM CHLORIDE 0.9% 100 ML IV SCH ×2 (05:19→14:24)
[2022-03-22] MEDS ORDERED: SODIUM CHLORIDE 0.9% 250ML 250 ML ONE (05:40)
[2022-03-22 08:08] VITALS: BP 122/72
[2022-03-22] MEDS: TAMSULOSIN HCL 0.4 MG CAP PO SCH (09:00)
[2022-03-22] MEDS: PRAMIPEXOLE DIHYDROCHLORIDE 0.25 MG TAB PO SCH ×3 (09:00→21:00)
[2022-03-22] MEDS: AZATHIOPRINE 50 MG TAB PO SCH ×2 (09:00→16:56)
[2022-03-22] MEDS: PANTOPRAZOLE SOD 40 MG TABEC PO SCH ×2 (09:00→16:30)
[2022-03-22] MEDS: FERROUS SULFATE 325 MG TAB PO SCH ×2 (09:00→16:56)
[2022-03-22] MEDS: MULTIVITAMINS/MINERALS TAB PO SCH (09:00)
[2022-03-22] MEDS: CYANOCOBALAMIN 1,000 MCG TAB PO SCH (09:00)
[2022-03-22] MEDS: FINASTERIDE 5 MG TAB PO SCH (09:00)
[2022-03-22] MEDS: AMLODIPINE BESYLATE 5 MG TAB PO SCH (09:00)
[2022-03-22 09:09] LABS: BASOPHILS # (AUTO) 0.1 (0.0-0.1); EOSINOPHILS # (AUTO) 0.5 (0.0-0.4); EOSINOPHILS % 6.6 % (0.0-6.0); HEMATOCRIT 31.2 % (38.2-49.6); HEMOGLOBIN 9.3 g/dL (14.0-18.0); LYMPHOCYTES % 14.3 % (18.0-39.1); MEAN CORPUSCULAR HEMOGLOBIN 29.2 pg (28-32); MEAN CORPUSCULAR HGB CONC 29.8 g/dL (31-35); MEAN CORPUSCULAR VOLUME 98.1 fL (81-99); MONOCYTES # (AUTO) 0.5 (0.2-0.8); MONOCYTES % 7.7 % (4.4-11.3); NEUTROPHILS # (AUTO) 4.8 (2.1-6.9); PLATELET COUNT 222 x10e3/uL (140-360); RED BLOOD COUNT 3.18 x10e6/uL (4.3-5.7); RED CELL DISTRIBUTION WIDTH 14.4 % (11.7-14.4)
[2022-03-22 09:48] LABS: ANION GAP 9.4 mmol/L (8-16); CALCIUM 9.1 mg/dL (8.4-10.2); CREATININE, SERUM 1.49 mg/dL (0.72-1.25); POTASSIUM 4.4 mmol/L (3.5-5.1)
[2022-03-22 12:10] VITALS: BP 132/75
[2022-03-22 16:16] VITALS: BP 116/61
[2022-03-22] MEDS: METOPROLOL SUCCINATE 50 MG TAB XL PO SCH (21:00)
[2022-03-22] MEDS: ATORVASTATIN 20 MG TAB PO SCH (21:00)
[2022-03-22 21:03] VITALS: BP 127/63
[2022-03-23] VITALS (8 sets, daily range): BP systolic 98–141; BP diastolic 62–81
[2022-03-23] MEDS: CARBIDOPA/LEVODOPA 25/100 TAB PO SCH ×4 (05:49→17:45)
[2022-03-23] MEDS: FERROUS SULFATE 325 MG TAB PO SCH ×2 (09:30→17:45)
[2022-03-23] MEDS: TAMSULOSIN HCL 0.4 MG CAP PO SCH (09:30)
[2022-03-23] MEDS: PANTOPRAZOLE SOD 40 MG TABEC PO SCH ×2 (09:30→17:45)
[2022-03-23] MEDS: MULTIVITAMINS/MINERALS TAB PO SCH (09:31)
[2022-03-23] MEDS: CYANOCOBALAMIN 1,000 MCG TAB PO SCH (09:31)
[2022-03-23] MEDS: PRAMIPEXOLE DIHYDROCHLORIDE 0.25 MG TAB PO SCH ×3 (09:31→20:49)
[2022-03-23] MEDS: AMLODIPINE BESYLATE 5 MG TAB PO SCH (09:31)
[2022-03-23] MEDS: AZATHIOPRINE 50 MG TAB PO SCH ×2 (09:31→17:45)
[2022-03-23] MEDS: FINASTERIDE 5 MG TAB PO SCH (09:31)
[2022-03-23] MEDS: METOPROLOL SUCCINATE 50 MG TAB XL PO SCH (20:49)
[2022-03-23] MEDS: ATORVASTATIN 20 MG TAB PO SCH (20:49)
[2022-03-24] VITALS (8 sets, daily range): BP systolic 118–142; BP diastolic 64–80
[2022-03-24] MEDS: CARBIDOPA/LEVODOPA 25/100 TAB PO SCH ×5 (00:14→18:02)
[2022-03-24] MEDS: PANTOPRAZOLE SOD 40 MG TABEC PO SCH ×2 (09:29→18:02)
[2022-03-24] MEDS: TAMSULOSIN HCL 0.4 MG CAP PO SCH (09:30)
[2022-03-24] MEDS: MULTIVITAMINS/MINERALS TAB PO SCH (09:30)
[2022-03-24] MEDS: PRAMIPEXOLE DIHYDROCHLORIDE 0.25 MG TAB PO SCH ×3 (09:30→22:36)
[2022-03-24] MEDS: AZATHIOPRINE 50 MG TAB PO SCH ×2 (09:30→18:02)
[2022-03-24] MEDS: FERROUS SULFATE 325 MG TAB PO SCH ×2 (09:30→18:02)
[2022-03-24] MEDS: AMLODIPINE BESYLATE 5 MG TAB PO SCH (09:31)
[2022-03-24] MEDS: FINASTERIDE 5 MG TAB PO SCH (09:31)
[2022-03-24] MEDS: CYANOCOBALAMIN 1,000 MCG TAB PO SCH (09:31)
[2022-03-24] MEDS: MEROPENEM 1 GM in SODIUM CHLORIDE 0.9% 100 ML IV SCH ×2 (18:02→22:36)
[2022-03-24] MEDS: ATORVASTATIN 20 MG TAB PO SCH (22:36)
[2022-03-24] MEDS: METOPROLOL SUCCINATE 50 MG TAB XL PO SCH (22:36)
[2022-03-25] VITALS (8 sets, daily range): BP systolic 111–130; BP diastolic 64–78
[2022-03-25] MEDS: CARBIDOPA/LEVODOPA 25/100 TAB PO SCH ×4 (00:52→17:29)
[2022-03-25] MEDS: MEROPENEM 1 GM in SODIUM CHLORIDE 0.9% 100 ML IV SCH ×3 (06:19→22:00)
[2022-03-25] MEDS: PANTOPRAZOLE SOD 40 MG TABEC PO SCH ×2 (09:54→15:34)
[2022-03-25] MEDS: FERROUS SULFATE 325 MG TAB PO SCH ×2 (09:55→17:21)
[2022-03-25] MEDS: MULTIVITAMINS/MINERALS TAB PO SCH (09:55)
[2022-03-25] MEDS: TAMSULOSIN HCL 0.4 MG CAP PO SCH (09:55)
[2022-03-25] MEDS: FINASTERIDE 5 MG TAB PO SCH (09:56)
[2022-03-25] MEDS: CYANOCOBALAMIN 1,000 MCG TAB PO SCH (09:56)
[2022-03-25] MEDS: AMLODIPINE BESYLATE 5 MG TAB PO SCH (09:56)
[2022-03-25] MEDS: PRAMIPEXOLE DIHYDROCHLORIDE 0.25 MG TAB PO SCH ×3 (09:57→21:23)
[2022-03-25] MEDS: AZATHIOPRINE 50 MG TAB PO SCH ×2 (09:57→17:29)
[2022-03-25] MEDS: ATORVASTATIN 20 MG TAB PO SCH (21:23)
[2022-03-25] MEDS: METOPROLOL SUCCINATE 50 MG TAB XL PO SCH (21:24)
[2022-03-26] VITALS (7 sets, daily range): BP systolic 67–140; BP diastolic 49–96
[2022-03-26] MEDS ORDERED: SODIUM CHLORIDE 0.9% 250ML 250 ML ONE (05:22)
[2022-03-26] MEDS: MEROPENEM 1 GM in SODIUM CHLORIDE 0.9% 100 ML IV SCH ×2 (06:00→14:02)
[2022-03-26] MEDS: CARBIDOPA/LEVODOPA 25/100 TAB PO SCH ×4 (06:00→17:05)
[2022-03-26] MEDS: PANTOPRAZOLE SOD 40 MG TABEC PO SCH ×2 (08:15→16:04)
[2022-03-26] MEDS: AZATHIOPRINE 50 MG TAB PO SCH ×2 (09:18→16:04)
[2022-03-26] MEDS: PRAMIPEXOLE DIHYDROCHLORIDE 0.25 MG TAB PO SCH ×2 (09:18→14:30)
[2022-03-26] MEDS: TAMSULOSIN HCL 0.4 MG CAP PO SCH (09:18)
[2022-03-26] MEDS: MULTIVITAMINS/MINERALS TAB PO SCH (09:18)
[2022-03-26] MEDS: FERROUS SULFATE 325 MG TAB PO SCH ×2 (09:18→16:04)
[2022-03-26] MEDS: CYANOCOBALAMIN 1,000 MCG TAB PO SCH (09:19)
[2022-03-26] MEDS: FINASTERIDE 5 MG TAB PO SCH (09:19)
[2022-03-26] MEDS: AMLODIPINE BESYLATE 5 MG TAB PO SCH (09:19)
== END 2022-03-26 22:00 | DRG 699 ==
LOC: ER 20:36 → ERHOLD 22:30 → MED/SURG3 03-13 15:51 → OBSVTOIN 03-14 09:20
PROVIDERS: ADMIT Internal Medicine; ATTEND Internal Medicine
PROC: 02HV33Z Insertion of Infusion Device into Superior Vena Cava, Percutaneous Approach (ICD-10-PCS; principal; 2022-03-15)
DX: T83.510A Infection and inflammatory reaction due to cystostomy catheter, initial encounter (principal); N39.0 Urinary tract infection, site not specified; G61.81 Chronic inflammatory demyelinating polyneuritis; M87.851 Other osteonecrosis, right femur; G20 Parkinson's disease; Z91.81 History of falling; I12.9 Hypertensive chronic kidney disease with stage 1 through stage 4 chronic kidney disease, or unspecified chronic kidney disease; N18.30 Chronic kidney disease, stage 3 unspecified; N32.0 Bladder-neck obstruction; D50.9 Iron deficiency anemia, unspecified; B96.1 Klebsiella pneumoniae [K. pneumoniae] as the cause of diseases classified elsewhere; B96.5 Pseudomonas (aeruginosa) (mallei) (pseudomallei) as the cause of diseases classified elsewhere; N32.81 Overactive bladder; N39.41 Urge incontinence; Z20.822 Contact with and (suspected) exposure to COVID-19; Z87.442 Personal history of urinary calculi; Z96.641 Presence of right artificial hip joint
CPT/HCPCS: 36415; 36569; 70450; 71045; 80048; 80053; 81001; 82607; 82728; 83540; 84466; 85025; 87040; 87086; 87186; 96360; 97139; 99251; 99284; G0378; J2185; J7050; U0002

== ENCOUNTER 2022-04-27 07:53 | Observation (INO) | payer MEDICARE, OTHER ==
[~2022-04-27] VITALS: Ht 188 cm; Wt 92.5 kg
[~2022-04-27 07:53] MED LIST changes: +ACETAMINOPHEN325 M1 PO; +DOCUSATE SODIU100 MG PO; +ONDANSETRON ODT8 MG PO
[2022-04-27] MEDS ORDERED: ROPIVACAINE 246.25 MG, EPINEPHRINE HCL 1:1000 1ML 0.5 MG, CLONIDINE HCL 0.08 MG, KETORO... INJ ONE ×5 (08:00)
[2022-04-27] MEDS ORDERED: CELECOXIB 200 MG CAP ONE (09:00)
[2022-04-27] MEDS ORDERED: DEXAMETHASONE SOD PHOS 10 MG/1 ML VIAL ONE (09:00)
[2022-04-27] MEDS ORDERED: GABAPENTIN 300 MG CAP ONE (09:00)
[2022-04-27] MEDS ORDERED: TRANEXAMIC ACID 20 ML ONE (09:29)
[2022-04-27] MEDS ORDERED: SODIUM CHLORIDE 0.9% 500ML 500 ML ONE (09:29)
[2022-04-27] MEDS ORDERED: Vancomycin IV 1,000 MG ONE (09:29)
[2022-04-27 09:38] LABS: INR 1.04; PROTHROMBIN TIME 14.5 seconds (11.9-14.5)
[2022-04-27 09:39] LABS: PARTIAL THROMBOPLASTIN TIME 39.4 seconds (23.8-35.5)
[2022-04-27] MEDS ORDERED: KETOROLAC TROMETHAMINE 30 MG/ML VIAL IV PRN (12:45)
[2022-04-27] MEDS ORDERED: ZOLPIDEM TARTRATE 5 MG TAB PO PRN (12:45)
[2022-04-27] MEDS ORDERED: HYDROCODONE/APAP 7.5MG-325MG 1 EA TAB PO PRN (12:45)
[2022-04-27] MEDS ORDERED: ONDANSETRON HCL INJ 2MG/ML 2ML 2 MG/ML VIAL IV PRN (12:45)
[2022-04-27] MEDS ORDERED: DOCUSATE SODIUM 100 MG CAP PO PRN (12:45)
[2022-04-27] MEDS ORDERED: ACETAMINOPHEN 650 MG SUPP PR PRN (12:45)
[2022-04-27] MEDS ORDERED: DIPHENHYDRAMINE HCL INJ 50 MG/ML VIAL IV PRN (12:45)
[2022-04-27] MEDS ORDERED: HYDROCODONE/APAP 5MG-325MG TAB PO PRN (12:45)
[2022-04-27] MEDS ORDERED: FENTANYL CITRATE/PF 100MCG/2 ML INJ ONE (13:17)
[2022-04-27] MEDS ORDERED: LIDOCAINE HCL 2% LOCAL INJ 5 ML SDV VIAL INJ ONE (13:23)
[2022-04-27] MEDS ORDERED: SEVOFLURANE INHAL SOLN 250 ML PEN BTL ONE (13:23)
[2022-04-27] MEDS ORDERED: POVIDONE IODINE 0.05% 0.05 % ML PO ONE (13:23)
[2022-04-27] MEDS ORDERED: PROPOFOL IV EMULSION 10 MG/ML 20 ML VIAL ONE (13:23)
[2022-04-27] MEDS ORDERED: ONDANSETRON HCL INJ 2MG/ML 2ML 2 MG/ML VIAL ONE (13:23)
[2022-04-27] MEDS ORDERED: ACETAMINOPHEN 1000 MG/100 ML IV ONE (13:23)
[2022-04-27] MEDS ORDERED: ATROPINE SULFATE 1 MG/ML VIAL ONE (13:23)
[2022-04-27] MEDS ORDERED: NEOSTIGMINE 1 MG/ML 10ML VIAL ONE (13:23)
[2022-04-27] MEDS ORDERED: ROCURONIUM BROMIDE 10 MG/ML 5ML VIAL IV ONE (13:23)
[2022-04-27 15:30] VITALS: BP 103/60
[2022-04-27 15:51] VITALS: BP 103/60
[2022-04-27 15:53] VITALS: BP 103/60
[2022-04-27] MEDS: SODIUM CHLORIDE 0.9% 1000ML 1,000 ML IV SCH (16:00)
[2022-04-27] MEDS ORDERED: ASPIRIN 325 MG TAB PO SCH (17:00)
[2022-04-27] MEDS ORDERED: CELECOXIB 200 MG CAP PO SCH (17:00)
[2022-04-27] MEDS ORDERED: ACETAMINOPHEN 1000 MG/100 ML IV PRN (18:00)
[2022-04-27 20:00] VITALS: BP 96/53
[2022-04-27 21:19] VITALS: BP 96/53
[2022-04-27] MEDS: ASPIRIN 325 MG TAB PO SCH (22:31)
[2022-04-27] MEDS: CELECOXIB 200 MG CAP PO SCH (22:33)
[2022-04-28] VITALS: BP 94/57
[2022-04-28] MEDS: SODIUM CHLORIDE 0.9% 1000ML 1,000 ML IV SCH ×3 (01:18→18:42)
[2022-04-28 04:12] VITALS: BP 100/56
[2022-04-28 05:01] LABS: HEMATOCRIT 27.1 % (38.2-49.6); HEMOGLOBIN 8.3 g/dL (14.0-18.0)
[2022-04-28 08:00] VITALS: BP 90/53
[2022-04-28 08:11] VITALS: BP 90/53
[2022-04-28] MEDS: CELECOXIB 200 MG CAP PO SCH ×2 (09:55→17:11)
[2022-04-28] MEDS: ASPIRIN 325 MG TAB PO SCH ×2 (09:55→17:11)
[2022-04-28] MEDS ORDERED: ASPIRIN325 MG PO (15:26)
[2022-04-28 15:45] VITALS: BP 111/54
== END 2022-04-28 19:00 ==
LOC: OR 07:53 → PACU V 14:41 → MED/SURG 15:42 → MED/SURG2 23:49
PROVIDERS: ADMIT Specialist; ATTEND Specialist
DX: M96.661 Fracture of femur following insertion of orthopedic implant, joint prosthesis, or bone plate, right leg (principal); T84.010A Broken internal right hip prosthesis, initial encounter; M16.11 Unilateral primary osteoarthritis, right hip; G20 Parkinson's disease; M41.9 Scoliosis, unspecified; E78.00 Pure hypercholesterolemia, unspecified; Z01.818 Encounter for other preprocedural examination; G61.81 Chronic inflammatory demyelinating polyneuritis; I12.9 Hypertensive chronic kidney disease with stage 1 through stage 4 chronic kidney disease, or unspecified chronic kidney disease; N18.30 Chronic kidney disease, stage 3 unspecified; Z20.822 Contact with and (suspected) exposure to COVID-19; I25.10 Atherosclerotic heart disease of native coronary artery without angina pectoris; Z79.899 Other long term (current) drug therapy
CPT/HCPCS: 0223U; 20680; 27130; 36415 ×2; 71046; 72170; 85014; 85018; 85610; 85730; 86850; 86900; 86920; 93005; 94799 ×2; 97139 ×2; 97162; 97530; 99251; C1713 ×3; C1776 ×2; G0378 ×2; J0131; J0171; J0461; J0690 ×2; J1100; J1885; J2001; J2405; J2704; J2710; J2795; J3010; J3370; J7030 ×2; J7040

== ENCOUNTER 2025-01-19 15:15 | Emergency (ER) | payer MEDICARE, OTHER ==
[~2025-01-19] VITALS: Ht 188 cm; Wt 92.5 kg
[2025-01-19 17:30] VITALS: PULSE 92; RESP 18; TEMP 97.6; O2SAT 100
== END 2025-01-19 17:47 | disposition home or self-care (01) ==
LOC: ER 15:32
DX: Z46.6 Encounter for fitting and adjustment of urinary device (principal); I12.9 Hypertensive chronic kidney disease with stage 1 through stage 4 chronic kidney disease, or unspecified chronic kidney disease; N18.9 Chronic kidney disease, unspecified; I25.10 Atherosclerotic heart disease of native coronary artery without angina pectoris; E78.5 Hyperlipidemia, unspecified; G20.A1 Parkinson's disease without dyskinesia, without mention of fluctuations; D64.9 Anemia, unspecified; Z96.651 Presence of right artificial knee joint
CPT/HCPCS: 99283

== ENCOUNTER → 2025-04-12 | Outpatient (REF) | payer MEDICARE, OTHER | LOC: CT 13:04 | PROVIDERS: ATTEND Urology | DX: N20.0 Calculus of kidney (principal) | CPT/HCPCS: 74176 ==

== ENCOUNTER 2025-05-08 03:57 | Observation (INO) | payer MEDICARE, OTHER ==
[~2025-05-08] VITALS: Ht 188 cm; Wt 92.5 kg
[2025-05-08] VITALS (8 sets, daily range): BP systolic 126–140; BP diastolic 57–66; PULSE 86–106; RESP 16–20; TEMP 97.2–100.7; O2SAT 94–99
[2025-05-08] MEDS: ONDANSETRON HCL INJ 2MG/ML 2ML 2 MG/ML VIAL IV STA (04:25)
[2025-05-08 04:45] LABS: BASOPHILS % 0.7 % (0.0-1.0); EOSINOPHILS % 3.5 % (0.0-6.0); LYMPHOCYTES % 10.3 % (18.0-39.1); MONOCYTES % 7.0 % (4.4-11.3); NEUTROPHILS % 78.0 % (38.7-80.0); RED CELL DISTRIBUTION WIDTH 16.2 % (11.7-14.4)
[2025-05-08 05:00] LABS: EST GLOMERULAR FILTRATION RATE 33.0 ML/MIN (>=60)
[2025-05-08] MEDS: GLUCAGON FOR INJ 1 MG VIAL IV ONE (05:03)
[2025-05-08] MEDS: SODIUM CHLORIDE 0.9% 1000ML 1,000 ML IV SCH (08:10)
[2025-05-08] MEDS: ONDANSETRON HCL INJ 2MG/ML 2ML 2 MG/ML VIAL IV PRN (08:10)
[2025-05-08] MEDS ORDERED: ASPIRIN81 MG PO (08:49)
[2025-05-08] MEDS ORDERED: LIDOCAINE HCL 2% LOCAL INJ 5 ML SDV VIAL INJ ONE (13:55)
[2025-05-08] MEDS ORDERED: PROPOFOL IV EMULSION 10 MG/ML 20 ML VIAL ONE (13:56)
[2025-05-08] MEDS ORDERED: FAMOTIDINE 20 MG/2 ML VIAL IV ONE (15:44)
[2025-05-08] MEDS ORDERED: ONDANSETRON HCL INJ 2MG/ML 2ML 2 MG/ML VIAL ONE (15:44)
[2025-05-08] MEDS ORDERED: SUCCINYLCHOLINE CHLORIDE 20 MG/ML 10ML VIAL ONE (15:44)
[2025-05-08] MEDS ORDERED: DEXAMETHASONE SOD PHOS INJ 4 MG/ML SDV ONE (15:44)
[2025-05-08] MEDS ORDERED: ROCURONIUM BROMIDE 1 ML IV ONE (15:44)
[2025-05-08] MEDS: METOCLOPRAMIDE HCL 10 MG/2ML VIAL IV SCH (18:02)
[2025-05-08] MEDS ORDERED: ACETAMINOPHEN 325 MG TAB PO PRN (21:30)
[2025-05-08] MEDS: CARBIDOPA/LEVODOPA 25/100 TAB PO SCH (23:00)
[2025-05-09] VITALS: BP 129/72; PULSE 93; RESP 20; TEMP 99.9; O2SAT 100
[2025-05-09 04:00] VITALS: BP 124/68; PULSE 72; RESP 18; TEMP 98.5; O2SAT 98
[2025-05-09 06:13] LABS: BASOPHILS % 0.3 % (0.0-1.0); EOSINOPHILS % 0.1 % (0.0-6.0); LYMPHOCYTES % 7.0 % (18.0-39.1); MONOCYTES % 7.9 % (4.4-11.3); NEUTROPHILS % 84.4 % (38.7-80.0); RED CELL DISTRIBUTION WIDTH 16.8 % (11.7-14.4)
[2025-05-09 07:07] LABS: EST GLOMERULAR FILTRATION RATE 35.0 ML/MIN (>=60)
[2025-05-09 08:23] VITALS: BP 147/72; PULSE 62; RESP 18; TEMP 98.2; O2SAT 98
[2025-05-09 08:51] VITALS: BP 147/72; PULSE 62; RESP 18; TEMP 98.2; O2SAT 98
[2025-05-09] MEDS: AZATHIOPRINE 50 MG TAB PO SCH (09:01)
[2025-05-09] MEDS: FINASTERIDE 5 MG TAB PO SCH (09:01)
[2025-05-09] MEDS: PRAMIPEXOLE DIHYDROCHLORIDE 0.25 MG TAB PO SCH (09:01)
[2025-05-09] MEDS: CYANOCOBALAMIN 1,000 MCG TAB PO SCH (09:02)
[2025-05-09] MEDS: ASPIRIN 81 MG CHEW TAB PO SCH (09:02)
[2025-05-09] MEDS: MULTIVITAMINS/MINERALS TAB PO SCH (09:02)
[2025-05-09] MEDS: AMLODIPINE BESYLATE 5 MG TAB PO SCH (09:02)
[2025-05-09] MEDS: METOPROLOL SUCCINATE 50 MG TAB XL PO SCH (09:02)
[2025-05-09] MEDS: PANTOPRAZOLE SOD 40 MG TABEC PO SCH (09:02)
[2025-05-09 10:08] LABS: EPITHELIAL CELLS,URINE FEW /LPF; LEUKOCYTE ESTERASE ,URINE LARGE (NEGATIVE); PROTEIN,URINE DIPSTICK TRACE (NEGATIVE); URINE UROBILINOGEN 0.2 mg/dL (0.2 - 1); WBC,URINE (MAN) >50 /HPF (0-5)
[2025-05-09 12:48] VITALS: BP 126/59; PULSE 62; RESP 18; TEMP 97.9; O2SAT 98
[2025-05-09] MEDS ORDERED: PEPCID20 MG PO (16:12)
[2025-05-09] MEDS ORDERED: CIPRO500 MG PO (16:24)
[2025-05-09 16:25] VITALS: BP 115/53; PULSE 65; RESP 18; TEMP 98.3; O2SAT 99
[2025-05-09] MEDS ORDERED: TAMSULOSIN HCL 0.4 MG CAP PO SCH (21:00)
[2025-05-09] MEDS ORDERED: ATORVASTATIN 20 MG TAB PO SCH (21:00)
== END 2025-05-09 18:28 | disposition home or self-care (01) ==
LOC: ER 04:11 → ERHOLD 07:17 → MED/SURG2 16:40
PROVIDERS: ADMIT Family Medicine Adult Medicine; ATTEND Family Medicine Adult Medicine
DX: T18.128A Food in esophagus causing other injury, initial encounter (principal); K22.10 Ulcer of esophagus without bleeding; K29.70 Gastritis, unspecified, without bleeding; I12.9 Hypertensive chronic kidney disease with stage 1 through stage 4 chronic kidney disease, or unspecified chronic kidney disease; N18.30 Chronic kidney disease, stage 3 unspecified; D63.1 Anemia in chronic kidney disease; I25.10 Atherosclerotic heart disease of native coronary artery without angina pectoris; E78.5 Hyperlipidemia, unspecified; G20.A1 Parkinson's disease without dyskinesia, without mention of fluctuations; G61.81 Chronic inflammatory demyelinating polyneuritis; Z87.440 Personal history of urinary (tract) infections; M41.9 Scoliosis, unspecified; F32.A Depression, unspecified
CPT/HCPCS: 36415 ×2; 43247; 70490; 71045; 71250; 80053 ×2; 81001; 84484; 85025 ×2; 87086; 87186; 93005; 94799; 99284; G0378 ×2; J0330; J1100; J1308; J1610; J2003; J2405; J2470 ×3; J2704; J2765 ×2; J7030 ×2; J7500; 45379